=== PATIENT | female | born 1950 | race African-American/Black ===

== ENCOUNTER 2016-10-09 21:05 | Inpatient (IN) | payer MEDICARE, OTHER ==
[~2016-10-09] VITALS: Ht 152.4 cm; Wt 61.7 kg
[~2016-10-09 21:05] MED LIST: AMLO10TA2 PO; DOCU-25 PO; HYDR12.5 PO; MIRT15TA PO; MULT1TAB11 PO; NAPR500T3 PO; RISP0.5T2 PO; SIMV10TA6 PO; TEMA15CA PO; [UNRECOGNIZED DRUG - CODE] TP
--- NOTE | 2016-10-09 21:47 | NUR ---
pt bib family to er bed 11. here for increasing aggression and confusion. hx of dementia. gowned and placed on monitor. stable vitals noted. awaiting md mahmood.
--- NOTE | 2016-10-09 22:04 | NUR ---
JOSELITO ALBERTO AT BEDSIDE FOR EVAL.
--- NOTE | 2016-10-09 22:26 | NUR ---
laborer aquatic life at bedside for blood draw.
[2016-10-09 22:38] LABS: BASOPHILS # (AUTO) 0.1 /CMM (0.0-0.2); BASOPHILS % (AUTO) 1.1 % (0.0-2.0); EOSINOPHILS # (AUTO) 0.1 /CMM (0.0-0.7); EOSINOPHILS % (AUTO) 1.6 % (0.0-6.0); HEMATOCRIT 42 % (33-45); HEMOGLOBIN 13.9 g/dL (11.5-14.8); LYMPHOCYTES # (AUTO) 1.5 /CMM (0.8-4.8); LYMPHOCYTES % (AUTO) 32.2 % (20.0-44.0); MEAN CORPUSCULAR HEMOGLOBIN 29 PG (26.0-33.0); MEAN CORPUSCULAR HGB CONC 33 g/dl (31.0-36.0); MEAN CORPUSCULAR VOLUME 88 fL (82-100); MONOCYTES # (AUTO) 0.5 /CMM (0.1-1.30); MONOCYTES % (AUTO) 10.1 % (2.0-12.0); NEUTROPHILS # (AUTO) 2.6 /CMM (1.8-8.9); PLATELET COUNT (AUTO) 196 /CMM (150-450); RDW COEFFICIENT OF VARIATION 14.4 (11.5-15.0); RED BLOOD CELL COUNT(AUTO) 4.74 MIL/uL (4.0-5.2); WHITE BLOOD COUNT (AUTO) 4.7 K/uL (4.3-11.0)
[2016-10-09 22:56] LABS: ALANINE AMINOTRANSFERASE 44 U/L (12-78); ALKALINE PHOSPHATASE 219 U/L (46-116); ASPARTATE AMINOTRANSFERASE 45 U/L (15-37); BILIRUBIN,DIRECT 0.1 mg/dL (0.0-0.2); BILIRUBIN,TOTAL 0.5 mg/dL (0.2-1.0); CALCIUM, SERUM 9.4 mg/dL (8.5-10.1); CARBON DIOXIDE 28 mmol/L (21-32); CHLORIDE 105 mmol/L (98-107); GFR 67 mL/min (>60); GLUCOSE 90 mg/dL (74-106); POTASSIUM 2.9 mmol/L (3.5-5.1); SODIUM SERUM 141 mmol/L (136-145); TOTAL PROTEIN, SERUM 8.2 g/dL (6.4-8.2); UREA NITROGEN, BLOOD 13 mg/dL (7-18)
[2016-10-09 22:57] LABS: ACETAMINOPHEN 0 ug/ml (10-30); ALCOHOL, BLOOD < 3 mg/dL (0-0); SALICYLATE 0.4 mg/dL (2.8-20.0)
[2016-10-09] MEDS ORDERED: HYDROMORPHONE 1 MG/1 ML DISP.SYRIN IV ONE (23:00)
[2016-10-09] MEDS ORDERED: LIDOCAINE VISCOUS 2% UD 15 ML UDC MM ONE (23:00)
--- NOTE | 2016-10-09 23:24 | NUR ---
REPORT TO CHARGE NURSE RENETTA FOR GEORGE.
[2016-10-09 23:25] LABS: APPEARANCE,URINE SL CLOUDY (CLEAR); BILIRUBIN,URINE NEGATIVE (NEGATIVE); BLOOD, URINE 1+ Ery/uL (NEGATIVE); COLOR,URINE YELLOW (YELLOW); KETONES,URINE NEGATIVE (NEGATIVE); LEUKOCYTE ESTERASE ,URINE NEGATIVE (NEGATIVE); NITRITE, URINE POSITIVE (NEGATIVE); PH,URINE 8.5 (5.0-8.0); PROTEIN,URINE NEGATIVE (NEGATIVE); UGLUCOSE NEGATIVE (NEGATIVE)
[2016-10-09] MEDS ORDERED: POTASSIUM CHLORIDE 20 MEQ TAB.PRT.SR PO ONE (23:30)
[2016-10-09 23:37] LABS: ADD URINE CULTURE YES; BACTERIA,URINE 4+ /HPF (None Seen); SQUAMOUS EPITHELIAL CELL,UR Rare /HPF (None Seen); WBC,URINE 0-2 /HPF (0-3)
[2016-10-09 23:43] LABS: CANNABINOID, URINE NEGATIVE (NEGATIVE); PHENCYCLIDINE SCREEN,URINE NEGATIVE (NEGATIVE)
--- NOTE | 2016-10-10 00:12 | NUR ---
ART HIGHWAY ENGINEER AT BEDSIDE FOR EVAL.
[2016-10-10] MEDS ORDERED: CEPHALEXIN MONOHYDRATE 500 MG CAPSULE PO ONE ×2 (00:54)
[2016-10-10] MEDS ORDERED: predniSONE 20 MG TABLET ONE (00:54)
--- NOTE | 2016-10-10 00:55 | NUR ---
REPORT GIVEN TO UNA KIM FOR CONTINUATION OF CARE.
[2016-10-10] MEDS ORDERED: POTASSIUM CHLORIDE 20 MEQ POWDER PACKET ONE (01:09)
[2016-10-10] MEDS ORDERED: MAGNESIUM HYDROXIDE 30 ML UDC PO PRN (01:30)
[2016-10-10] MEDS ORDERED: MAG HYDROX/AL HYDROX/SIMETH 30 ML UDC PO PRN (01:30)
[2016-10-10] MEDS ORDERED: ACETAMINOPHEN 325 MG TABLET PO PRN (01:30)
[2016-10-10 01:45] VITALS: BP 150/90
--- NOTE | 2016-10-10 01:45 | NUR ---
GPS ADMISSION NOTE, RECEIVED PATIENT FROM [facility] . PATIENT ARRIVED ON THIS UNIT AT 0145 VIA GURNEY WITH EMT [facility]. PATIENT ADMITTED ON A 5150 HOLD FOR GD. PER HOLD PATIENT IS ALERT X1. PT CONFUSED AND PARANOID AT HOME WITH INCREASED AGGRESSION TOWARDS FAMILY FOR ONE MONTH. PATIENT HAS COGNITIVE DECLINE AND IS UNABLE TO PROVIDE SELF CARE AT HOME GIVEN HER CURRENT MENTAL STATE. THE 5150 WAS REVIEWED AND THE DOCUMENTATION IN THE 5150 HOLD APPEARS TO REFLECT THE PRESENTATION OF THE PATIENT. UPON FACE TO FACE ASSESSMENT PATIENT IS CURRENTLY SITTING UP IN WAN CHAIR AWAKE, HAS NO S/S OR COMPLAINTS OF PAIN. PATIENT BREATHING IS UNLABORED WITH EQUAL RISE AND FALL OF THE CHEST. PATIENT IS ALERT AND ORIENTATED X 1 ON ROOM AIR. PATIENT ASSISTED WITH TURING AND REPOSITIONING Q2HR AND PRN FOR COMFORT AND CIRCULATION. PATIENT REQUIRES FREQUENT MONITORING FOR SAFETY. PATIENT IS NOTED TO BEING COMBATIVE, AGGRESSIVE, DISORGANIZED, UNCOOPERATIVE, AND NEEDS REDIRECTION. PATIENT IS UNDER THE PSYCHIATRIC CARE OF DR. SNOW AND THE MEDICAL CARE OF DR YEAGER. PATIENT BELONGINGS WERE INVENTORIED AND CHECKED FOR CONTRABAND. PATIENT ADVANCED DIRECTIVES PREFERENCE, IMMUNIZATIONS QUESTIONER, NECESSARY PAPERWORK, AND SKIN ASSESSMENT COMPLETED. PATIENT ORIENTATED TO ROOM, FLOOR, AND STAFF WITH ALL QUESTIONS ANSWERED. PATIENT EDUCATED ON THE USE OF THE CALL CAMPOS. PATIENT BED SIDE RAILS ARE UP X 2 FOR SAFETY. PATIENT BED IS LOCKED, LOW AND I WILL CONTINUE TO MONITOR THIS PATIENT Q 15 MIN WITH THE HELP OF STAFF TO MAINTAIN SAFETY.
[2016-10-10] MEDS ORDERED: diphenhydrAMINE HCL 25 MG CAPSULE PO PRN (02:00)
[2016-10-10] MEDS ORDERED: OLANZAPINE 10 MG VIAL IM ONE ×2 (02:15→02:30)
[2016-10-10] MEDS ORDERED: diphenhydrAMINE HCL 50 MG/ML VIAL ONE (02:16)
--- NOTE | 2016-10-10 02:23 | NUR ---
GPS RN NOTE, PATIENT IS IN GERATIC CHAIR FOR SAFETY YELLING, THROWING WATER, STRIKING OUT AT STAFF, WHILE POSING BEHAVIOR DANGEROUS TO OTHERS. ATTEMPTED TO REORIENTATE PATIENT, INTERACT WITH PATIENT, AND OFFERED ORAL PO MEDICATION TO HELP CALM HER DOWN. BUT PATIENT REFUSED INTERVENTIONS ATTEMPTED STATING, " I'M WITH GOD AND GOD IS WITH ME DON'T TELL ME WHAT FUCKING DO". PAGED DR SNOW AND INFORMED HIM OF MY FINDINGS. DR SNOW ORDERED TO GIVE BENADRYL 25 MG IM ONCE AND ZYPREXA 5MG IM ONCE. ALL ORDERS NOTED AND CARRIED OUT WILL CONTINUE TO MONITOR THIS PATIENT.
[2016-10-10] MEDS ORDERED: diphenhydrAMINE HCL 50 MG/ML VIAL IM ONE (02:30)
--- NOTE | 2016-10-10 06:02 | NUR ---
GPS RN CALLED DR LILLIAM YEAGER. AWARE OF ADMISSION. HE WILL SEE PT THIS MORNING TO ADDRESS MEDICATION RECONCILIATION, UTI AND K 2.9. WILL ENDORSE TO ONCOMING SHIFT.
[2016-10-10 08:00] VITALS: BP 149/96
[2016-10-10] MEDS ORDERED: PANT40TA4 PO (08:28)
[2016-10-10] MEDS ORDERED: MEMA10TA PO (08:28)
[2016-10-10] MEDS ORDERED: PARO10TA3 PO (08:28)
[2016-10-10] MEDS ORDERED: DONE5TAB34 PO (08:28)
[2016-10-10] MEDS ORDERED: ZOLP5TAB7 PO (08:28)
[2016-10-10] MEDS ORDERED: OXYB5TAB11 PO (08:28)
[2016-10-10] MEDS ORDERED: POTA8TAB8 PO (08:28)
[2016-10-10] MEDS ORDERED: ATOR10TA PO (08:28)
[2016-10-10] MEDS: DIVALPROEX SODIUM 125 MG CAP.SPRINK PO SCH ×2 (09:30→20:25)
[2016-10-10] MEDS: OLANZAPINE 2.5 MG TABLET PO SCH ×2 (09:30→17:42)
[2016-10-10] MEDS ORDERED: POTASSIUM CHLORIDE 20 MEQ TAB.PRT.SR PO ONE (12:30)
[2016-10-10] MEDS: CEPHALEXIN MONOHYDRATE 500 MG CAPSULE PO SCH ×2 (12:30→20:25)
[2016-10-10 16:04] VITALS: BP 131/84
[2016-10-10] MEDS: DOCUSATE SODIUM 100 MG CAPSULE PO SCH (17:42)
[2016-10-10] MEDS: MEMANTINE HCL 5 MG TABLET PO SCH (17:42)
--- NOTE | 2016-10-10 19:51 | NUR ---
RN INITIAL NOTES RECEIVED PT ON WAN CHAIR AWAKE, A/O X 1-2 , CONFUSED , NO AGGRESSIVE BEHAVIOR AT THIS TIME. BREATHING EVEN AND UNLABORED ON ROOM AIR. FALL AND SAFETY MEASURES APPLIED. WILL CONTINUE TO MONITOR BEHAVIOR.
[2016-10-10 20:00] VITALS: BP 140/62
[2016-10-10] MEDS: ATORVASTATIN 10 MG TABLET PO SCH (21:08)
[2016-10-10] MEDS: MIRTAZAPINE 15 MG TABLET PO SCH (21:09)
[2016-10-10] MEDS: TEMAZEPAM 7.5 MG CAPSULE PO PRN (22:31)
--- NOTE | 2016-10-10 23:30 | NUR ---
RN NOTE; PRN RESTORIL 15 MG PO GIVEN FOR INSOMNIA , TOLERATED WELL AT THIS TIME, WILL CONTINUE TO MONITOR THE PATIENT.
[2016-10-11 06:30] LABS: BASOPHILS % (AUTO) 0.7 % (0.0-2.0); EOSINOPHILS # (AUTO) 0.1 /CMM (0.0-0.7); EOSINOPHILS % (AUTO) 1.7 % (0.0-6.0); HEMATOCRIT 38 % (33-45); HEMOGLOBIN 12.5 g/dL (11.5-14.8); LYMPHOCYTES # (AUTO) 1.2 /CMM (0.8-4.8); MEAN CORPUSCULAR HEMOGLOBIN 29 PG (26.0-33.0); MEAN CORPUSCULAR HGB CONC 33 g/dl (31.0-36.0); MEAN CORPUSCULAR VOLUME 88 fL (82-100); MONOCYTES # (AUTO) 0.5 /CMM (0.1-1.30); MONOCYTES % (AUTO) 9.6 % (2.0-12.0); NEUTROPHILS # (AUTO) 3.8 /CMM (1.8-8.9); PLATELET COUNT (AUTO) 183 /CMM (150-450); RDW COEFFICIENT OF VARIATION 14.3 (11.5-15.0); RED BLOOD CELL COUNT(AUTO) 4.28 MIL/uL (4.0-5.2); WHITE BLOOD COUNT (AUTO) 5.7 K/uL (4.3-11.0)
[2016-10-11 06:47] LABS: ALBUMIN 3.4 g/dL (3.4-5.0); BILIRUBIN,TOTAL 0.5 mg/dL (0.2-1.0); CALCIUM, SERUM 9.3 mg/dL (8.5-10.1); CREATININE 0.8 mg/dL (0.6-1.3); POTASSIUM 3.6 mmol/L (3.5-5.1); TOTAL PROTEIN, SERUM 7.4 g/dL (6.4-8.2)
[2016-10-11 06:59] LABS: THYROID STIMULATING HORMONE 0.594 uIU/mL (0.358-3.74)
--- NOTE | 2016-10-11 07:16 | NUR ---
RN EOS NOTE; PT SLEPT WELL DURING THE NIGHT, NO ANY DISTRESS NOTED. ALL PRESCRIBED MEDS TOLERATED WELL, ENDORSED TO DAY SHIFT RN FOR CONTINUITY OF CARE.
[2016-10-11 08:00] VITALS: BP 145/79
[2016-10-11] MEDS: DIVALPROEX SODIUM 125 MG CAP.SPRINK PO SCH ×2 (08:36→20:23)
[2016-10-11] MEDS: PANTOPRAZOLE 40 MG TABLET.DR PO SCH (08:37)
[2016-10-11] MEDS: MEMANTINE HCL 5 MG TABLET PO SCH ×2 (08:37→17:22)
[2016-10-11] MEDS: ASPIRIN 81 MG TAB.CHEW PO SCH (08:37)
[2016-10-11] MEDS: AMLODIPINE BESYLATE 10 MG TABLET PO SCH (08:37)
[2016-10-11] MEDS: CEPHALEXIN MONOHYDRATE 500 MG CAPSULE PO SCH ×2 (08:37→20:23)
[2016-10-11] MEDS: DOCUSATE SODIUM 100 MG CAPSULE PO SCH ×2 (08:37→17:22)
[2016-10-11] MEDS: MULTIVITAMINS,THERAPEUTIC 1 UDTAB TABLET PO SCH (08:37)
[2016-10-11] MEDS: OLANZAPINE 2.5 MG TABLET PO SCH ×2 (08:37→17:22)
[2016-10-11 16:00] VITALS: BP 124/74
--- NOTE | 2016-10-11 16:27 | NUR ---
Initial discharge plan: Pt. lives at home with her daughter Ambar at [address] [place] [address] and wants to return. Pt may need to be placed in a facility as pt's daughter reported that she is unable to care for the patient at home. SW will follow up with daughter as she was unavailable at this time and will arrange for safe and proper discharge.
[2016-10-11 20:00] VITALS: BP 120/77
[2016-10-11] MEDS: ATORVASTATIN 10 MG TABLET PO SCH (21:22)
[2016-10-11] MEDS: MIRTAZAPINE 15 MG TABLET PO SCH (21:22)
[2016-10-11] MEDS: TEMAZEPAM 7.5 MG CAPSULE PO PRN (22:17)
[2016-10-12 07:36] LABS: BASOPHILS % (AUTO) 0.5 % (0.0-2.0); EOSINOPHILS # (AUTO) 0.1 /CMM (0.0-0.7); EOSINOPHILS % (AUTO) 1.4 % (0.0-6.0); HEMATOCRIT 42 % (33-45); LYMPHOCYTES # (AUTO) 1.5 /CMM (0.8-4.8); LYMPHOCYTES % (AUTO) 20.4 % (20.0-44.0); MEAN CORPUSCULAR HEMOGLOBIN 29 PG (26.0-33.0); MEAN CORPUSCULAR HGB CONC 33 g/dl (31.0-36.0); MEAN CORPUSCULAR VOLUME 88 fL (82-100); MONOCYTES # (AUTO) 0.5 /CMM (0.1-1.30); MONOCYTES % (AUTO) 7.3 % (2.0-12.0); NEUTROPHILS # (AUTO) 5.1 /CMM (1.8-8.9); NEUTROPHILS % (AUTO) 70.4 % (43.0-81.0); PLATELET COUNT (AUTO) 198 /CMM (150-450); RDW COEFFICIENT OF VARIATION 14.9 (11.5-15.0); RED BLOOD CELL COUNT(AUTO) 4.77 MIL/uL (4.0-5.2); WHITE BLOOD COUNT (AUTO) 7.2 K/uL (4.3-11.0)
[2016-10-12 07:47] LABS: ALBUMIN 3.8 g/dL (3.4-5.0); BILIRUBIN,TOTAL 0.5 mg/dL (0.2-1.0); CALCIUM, SERUM 9.4 mg/dL (8.5-10.1); CREATININE 0.9 mg/dL (0.6-1.3); POTASSIUM 3.3 mmol/L (3.5-5.1); TOTAL PROTEIN, SERUM 8.4 g/dL (6.4-8.2)
[2016-10-12 08:00] VITALS: BP 154/81
[2016-10-12] MEDS: AMLODIPINE BESYLATE 10 MG TABLET PO SCH (08:34)
[2016-10-12] MEDS: MULTIVITAMINS,THERAPEUTIC 1 UDTAB TABLET PO SCH (08:34)
[2016-10-12] MEDS: ASPIRIN 81 MG TAB.CHEW PO SCH (08:34)
[2016-10-12] MEDS: CEPHALEXIN MONOHYDRATE 500 MG CAPSULE PO SCH ×2 (08:34→20:22)
[2016-10-12] MEDS: DIVALPROEX SODIUM 125 MG CAP.SPRINK PO SCH ×2 (08:34→20:22)
[2016-10-12] MEDS: DOCUSATE SODIUM 100 MG CAPSULE PO SCH ×2 (08:34→17:22)
[2016-10-12] MEDS: MEMANTINE HCL 5 MG TABLET PO SCH ×2 (08:34→17:22)
[2016-10-12] MEDS: PANTOPRAZOLE 40 MG TABLET.DR PO SCH (08:35)
[2016-10-12] MEDS: OLANZAPINE 2.5 MG TABLET PO SCH ×2 (08:35→17:22)
[2016-10-12 16:21] VITALS: BP 129/77
[2016-10-12 20:00] VITALS: BP 113/59
[2016-10-12] MEDS: ATORVASTATIN 10 MG TABLET PO SCH (21:04)
[2016-10-12] MEDS: MIRTAZAPINE 15 MG TABLET PO SCH (21:04)
[2016-10-12] MEDS: TEMAZEPAM 7.5 MG CAPSULE PO PRN (22:10)
[2016-10-13] MEDS: PANTOPRAZOLE 40 MG TABLET.DR PO SCH (07:59)
[2016-10-13 08:00] VITALS: BP 140/79
[2016-10-13] MEDS: DIVALPROEX SODIUM 125 MG CAP.SPRINK PO SCH ×2 (08:41→21:37)
[2016-10-13] MEDS: MEMANTINE HCL 5 MG TABLET PO SCH ×2 (08:41→16:09)
[2016-10-13] MEDS: ASPIRIN 81 MG TAB.CHEW PO SCH (08:41)
[2016-10-13] MEDS: MULTIVITAMINS,THERAPEUTIC 1 UDTAB TABLET PO SCH (08:41)
[2016-10-13] MEDS: CEPHALEXIN MONOHYDRATE 500 MG CAPSULE PO SCH ×2 (08:41→21:37)
[2016-10-13] MEDS: DOCUSATE SODIUM 100 MG CAPSULE PO SCH ×2 (08:41→16:09)
[2016-10-13] MEDS: OLANZAPINE 2.5 MG TABLET PO SCH ×2 (08:42→16:09)
[2016-10-13] MEDS: AMLODIPINE BESYLATE 10 MG TABLET PO SCH (08:42)
[2016-10-13 16:00] VITALS: BP 104/70
[2016-10-13] MEDS ORDERED: DOCUSATE SODIUM 100 MG CAPSULE PO SCH (17:00)
[2016-10-13] MEDS ORDERED: Medication Not On Formulary EA (Memantine Hcl (Namenda) 10 MG) PO SCH (17:00)
[2016-10-13] MEDS: OXYBUTYNIN CHLORIDE 5 MG TABLET PO SCH (17:32)
[2016-10-13 20:12] VITALS: BP 147/65
[2016-10-13] MEDS: ATORVASTATIN 10 MG TABLET PO SCH (21:36)
[2016-10-13] MEDS: MIRTAZAPINE 15 MG TABLET PO SCH (21:37)
[2016-10-13] MEDS: DONEPEZIL 5 MG TABLET PO SCH (21:37)
[2016-10-13] MEDS ORDERED: ATORVASTATIN 10 MG TABLET PO SCH (22:00)
--- NOTE | 2016-10-14 00:33 | NUR ---
Pt has been quite fragmented & unpredictable but she complied with her meds last night with minimal promptings.
[2016-10-14] MEDS ORDERED: PANTOPRAZOLE 40 MG TABLET.DR PO SCH (07:30)
[2016-10-14] MEDS: PANTOPRAZOLE 40 MG TABLET.DR PO SCH (07:30)
[2016-10-14 08:00] VITALS: BP 135/79
[2016-10-14] MEDS ORDERED: AMLODIPINE BESYLATE 10 MG TABLET PO SCH (09:00)
[2016-10-14] MEDS: AMLODIPINE BESYLATE 10 MG TABLET PO SCH (09:02)
[2016-10-14] MEDS: OLANZAPINE 2.5 MG TABLET PO SCH ×2 (09:02→17:09)
[2016-10-14] MEDS: MEMANTINE HCL 5 MG TABLET PO SCH ×2 (09:02→17:09)
[2016-10-14] MEDS: MULTIVITAMINS,THERAPEUTIC 1 UDTAB TABLET PO SCH (09:02)
[2016-10-14] MEDS: DOCUSATE SODIUM 100 MG CAPSULE PO SCH ×2 (09:02→17:09)
[2016-10-14] MEDS: CEPHALEXIN MONOHYDRATE 500 MG CAPSULE PO SCH ×2 (09:02→21:35)
[2016-10-14] MEDS: OXYBUTYNIN CHLORIDE 5 MG TABLET PO SCH ×2 (09:02→17:09)
[2016-10-14] MEDS: DIVALPROEX SODIUM 125 MG CAP.SPRINK PO SCH ×2 (09:02→21:35)
[2016-10-14] MEDS: ASPIRIN 81 MG TAB.CHEW PO SCH (09:02)
[2016-10-14] MEDS: POTASSIUM CHLORIDE 10 MEQ TABLET.SA PO SCH (09:02)
[2016-10-14 16:00] VITALS: BP 144/82
[2016-10-14] MEDS: DONEPEZIL 5 MG TABLET PO SCH (21:35)
[2016-10-14] MEDS: ATORVASTATIN 10 MG TABLET PO SCH (21:36)
[2016-10-14] MEDS: MIRTAZAPINE 15 MG TABLET PO SCH (21:36)
[2016-10-15 08:27] VITALS: BP 142/77
[2016-10-15] MEDS: DOCUSATE SODIUM 100 MG CAPSULE PO SCH ×2 (08:30→16:33)
[2016-10-15] MEDS: ASPIRIN 81 MG TAB.CHEW PO SCH (08:30)
[2016-10-15] MEDS: MULTIVITAMINS,THERAPEUTIC 1 UDTAB TABLET PO SCH (08:30)
[2016-10-15] MEDS: CEPHALEXIN MONOHYDRATE 500 MG CAPSULE PO SCH ×2 (08:30→21:27)
[2016-10-15] MEDS: POTASSIUM CHLORIDE 10 MEQ TABLET.SA PO SCH (08:31)
[2016-10-15] MEDS: DIVALPROEX SODIUM 125 MG CAP.SPRINK PO SCH ×2 (08:31→21:27)
[2016-10-15] MEDS: OXYBUTYNIN CHLORIDE 5 MG TABLET PO SCH ×2 (08:31→16:33)
[2016-10-15] MEDS: AMLODIPINE BESYLATE 10 MG TABLET PO SCH (08:31)
[2016-10-15] MEDS: OLANZAPINE 2.5 MG TABLET PO SCH ×2 (08:31→16:33)
[2016-10-15] MEDS: PANTOPRAZOLE 40 MG TABLET.DR PO SCH (08:31)
[2016-10-15] MEDS: MEMANTINE HCL 5 MG TABLET PO SCH ×2 (08:31→16:33)
--- NOTE | 2016-10-15 13:37 | NUR ---
Pt. was referred to to [facility] [address] [place] [address] will follow up
--- NOTE | 2016-10-15 14:30 | NUR ---
HUEY spoke with Ambar, pt's daughter; [phone] who was unsure whether she wants her mother to return home or go to a facility first before returning back home. She was given time to think about it as pt. does not have a scheduled discharge date yet, but was notified that most likely it will be by the end of this week. HUEY will follow up
[2016-10-15 16:00] VITALS: BP 153/82
[2016-10-15 20:48] VITALS: BP 138/69
[2016-10-15] MEDS: ATORVASTATIN 10 MG TABLET PO SCH (21:27)
[2016-10-15] MEDS: DONEPEZIL 5 MG TABLET PO SCH (21:27)
[2016-10-15] MEDS: MIRTAZAPINE 15 MG TABLET PO SCH (21:27)
[2016-10-16 08:00] VITALS: BP 136/53
[2016-10-16] MEDS: OLANZAPINE 2.5 MG TABLET PO SCH ×2 (08:50→16:13)
[2016-10-16] MEDS: PANTOPRAZOLE 40 MG TABLET.DR PO SCH (08:50)
[2016-10-16] MEDS: MEMANTINE HCL 5 MG TABLET PO SCH ×2 (08:50→16:13)
[2016-10-16] MEDS: OXYBUTYNIN CHLORIDE 5 MG TABLET PO SCH ×2 (08:50→16:13)
[2016-10-16] MEDS: MULTIVITAMINS,THERAPEUTIC 1 UDTAB TABLET PO SCH (08:50)
[2016-10-16] MEDS: DIVALPROEX SODIUM 125 MG CAP.SPRINK PO SCH ×2 (08:50→21:46)
[2016-10-16] MEDS: DOCUSATE SODIUM 100 MG CAPSULE PO SCH ×2 (08:50→16:13)
[2016-10-16] MEDS: ASPIRIN 81 MG TAB.CHEW PO SCH (08:50)
[2016-10-16] MEDS: CEPHALEXIN MONOHYDRATE 500 MG CAPSULE PO SCH (08:50)
[2016-10-16] MEDS: POTASSIUM CHLORIDE 10 MEQ TABLET.SA PO SCH (08:50)
[2016-10-16] MEDS: AMLODIPINE BESYLATE 10 MG TABLET PO SCH (08:51)
[2016-10-16 15:48] VITALS: BP 127/67
--- NOTE | 2016-10-16 19:30 | NUR ---
GPS/RN NOTE: AWAKE, ALERT, ORIENTED X2, NO APPARENT DISTRESS NOTED.
[2016-10-16 19:58] VITALS: BP 121/66
[2016-10-16] MEDS: MIRTAZAPINE 15 MG TABLET PO SCH (21:46)
[2016-10-16] MEDS: DONEPEZIL 5 MG TABLET PO SCH (21:46)
[2016-10-16] MEDS: ATORVASTATIN 10 MG TABLET PO SCH (21:46)
[2016-10-17 08:00] VITALS: BP 137/69
[2016-10-17] MEDS: ASPIRIN 81 MG TAB.CHEW PO SCH (08:11)
[2016-10-17] MEDS: MEMANTINE HCL 5 MG TABLET PO SCH ×2 (08:12→16:01)
[2016-10-17] MEDS: OXYBUTYNIN CHLORIDE 5 MG TABLET PO SCH ×2 (08:12→16:01)
[2016-10-17] MEDS: MULTIVITAMINS,THERAPEUTIC 1 UDTAB TABLET PO SCH (08:12)
[2016-10-17] MEDS: DIVALPROEX SODIUM 125 MG CAP.SPRINK PO SCH ×2 (08:12→20:59)
[2016-10-17] MEDS: PANTOPRAZOLE 40 MG TABLET.DR PO SCH (08:12)
[2016-10-17] MEDS: POTASSIUM CHLORIDE 10 MEQ TABLET.SA PO SCH (08:12)
[2016-10-17] MEDS: DOCUSATE SODIUM 100 MG CAPSULE PO SCH ×2 (08:12→16:01)
[2016-10-17] MEDS: OLANZAPINE 2.5 MG TABLET PO SCH ×2 (08:12→16:01)
[2016-10-17] MEDS: AMLODIPINE BESYLATE 10 MG TABLET PO SCH (08:13)
[2016-10-17 16:00] VITALS: BP 128/85
--- NOTE | 2016-10-17 16:44 | NUR ---
HUEY spoke with Ambar, pt's daughter; [phone] who still has not decided whether she wants pt. home or in a facility. HUEY notified MD and pt. can discharge to [facility] [address] [place] [address] on Friday, October 18 if going to facility, or Friday, October 21, if going home [address] [place] [address] .
[2016-10-17 19:56] VITALS: BP 118/76
[2016-10-17 20:00] VITALS: BP 118/76
[2016-10-17] MEDS: DONEPEZIL 5 MG TABLET PO SCH (20:59)
[2016-10-17] MEDS: MIRTAZAPINE 15 MG TABLET PO SCH (20:59)
[2016-10-17] MEDS: ATORVASTATIN 10 MG TABLET PO SCH (20:59)
[2016-10-18] MEDS: PANTOPRAZOLE 40 MG TABLET.DR PO SCH (07:30)
[2016-10-18 08:00] VITALS: BP 131/61
[2016-10-18] MEDS: MEMANTINE HCL 5 MG TABLET PO SCH ×2 (09:00→17:00)
[2016-10-18] MEDS: POTASSIUM CHLORIDE 10 MEQ TABLET.SA PO SCH (09:00)
[2016-10-18] MEDS: DIVALPROEX SODIUM 125 MG CAP.SPRINK PO SCH ×2 (09:00→23:17)
[2016-10-18] MEDS: DOCUSATE SODIUM 100 MG CAPSULE PO SCH ×2 (09:00→17:00)
[2016-10-18] MEDS: AMLODIPINE BESYLATE 10 MG TABLET PO SCH (09:00)
[2016-10-18] MEDS: OXYBUTYNIN CHLORIDE 5 MG TABLET PO SCH ×2 (09:00→17:00)
[2016-10-18] MEDS: MULTIVITAMINS,THERAPEUTIC 1 UDTAB TABLET PO SCH (09:00)
[2016-10-18] MEDS: OLANZAPINE 2.5 MG TABLET PO SCH ×2 (09:00→17:00)
[2016-10-18] MEDS: ASPIRIN 81 MG TAB.CHEW PO SCH (09:00)
--- NOTE | 2016-10-18 11:26 | NUR ---
GPS/RN PT REFUSED AM MEDS OFFERED X3. MEDS WERE OFFERED BY CHARGE NURSE DEBORAH IKM WELL.
[2016-10-18 16:16] VITALS: BP 151/89
--- NOTE | 2016-10-18 17:44 | NUR ---
GPS/RN PT REFUSED THE MEDS FOR 0, OFFERED BY THE RECYCLING CENTER OPERATOR OF THIS NOTE AND BY DEANNA KIM WELL. MEDS RETURNED TO [facility].
[2016-10-18 20:00] VITALS: BP 122/98
[2016-10-18] MEDS: ATORVASTATIN 10 MG TABLET PO SCH (23:18)
[2016-10-18] MEDS: MIRTAZAPINE 15 MG TABLET PO SCH (23:18)
[2016-10-18] MEDS: DONEPEZIL 5 MG TABLET PO SCH (23:19)
[2016-10-19 07:11] LABS: EOSINOPHILS # (AUTO) 0.1 /CMM (0.0-0.7); EOSINOPHILS % (AUTO) 1.5 % (0.0-6.0); HEMATOCRIT 37 % (33-45); HEMOGLOBIN 12.3 g/dL (11.5-14.8); LYMPHOCYTES # (AUTO) 1.1 /CMM (0.8-4.8); LYMPHOCYTES % (AUTO) 26.1 % (20.0-44.0); MEAN CORPUSCULAR HEMOGLOBIN 30 PG (26.0-33.0); MEAN CORPUSCULAR HGB CONC 33 g/dl (31.0-36.0); MEAN CORPUSCULAR VOLUME 89 fL (82-100); MONOCYTES # (AUTO) 0.4 /CMM (0.1-1.30); MONOCYTES % (AUTO) 10.3 % (2.0-12.0); NEUTROPHILS # (AUTO) 2.6 /CMM (1.8-8.9); NEUTROPHILS % (AUTO) 61.1 % (43.0-81.0); PLATELET COUNT (AUTO) 198 /CMM (150-450); RDW COEFFICIENT OF VARIATION 13.5 (11.5-15.0); RED BLOOD CELL COUNT(AUTO) 4.14 MIL/uL (4.0-5.2); WHITE BLOOD COUNT (AUTO) 4.2 K/uL (4.3-11.0)
[2016-10-19] MEDS: PANTOPRAZOLE 40 MG TABLET.DR PO SCH (07:30)
[2016-10-19 07:49] LABS: ALBUMIN 3.6 g/dL (3.4-5.0); BILIRUBIN,TOTAL 0.3 mg/dL (0.2-1.0); CALCIUM, SERUM 9.6 mg/dL (8.5-10.1); CREATININE 0.8 mg/dL (0.6-1.3); POTASSIUM 3.5 mmol/L (3.5-5.1)
[2016-10-19 08:00] VITALS: BP 110/68
[2016-10-19] MEDS: DOCUSATE SODIUM 100 MG CAPSULE PO SCH ×2 (08:47→16:39)
[2016-10-19] MEDS: DIVALPROEX SODIUM 125 MG CAP.SPRINK PO SCH ×2 (08:47→21:09)
[2016-10-19] MEDS: ASPIRIN 81 MG TAB.CHEW PO SCH (08:47)
[2016-10-19] MEDS: OLANZAPINE 2.5 MG TABLET PO SCH ×3 (08:48→21:09)
[2016-10-19] MEDS: POTASSIUM CHLORIDE 10 MEQ TABLET.SA PO SCH (08:48)
[2016-10-19] MEDS: OXYBUTYNIN CHLORIDE 5 MG TABLET PO SCH ×2 (08:48→16:39)
[2016-10-19] MEDS: MEMANTINE HCL 5 MG TABLET PO SCH ×2 (08:48→16:39)
[2016-10-19] MEDS: AMLODIPINE BESYLATE 10 MG TABLET PO SCH (08:48)
[2016-10-19] MEDS: MULTIVITAMINS,THERAPEUTIC 1 UDTAB TABLET PO SCH (08:48)
[2016-10-19 15:54] VITALS: BP 121/60
[2016-10-19] MEDS ORDERED: OLANZAPINE 2.5 MG TABLET PO SCH (17:00)
[2016-10-19 20:00] VITALS: BP 121/87
[2016-10-19] MEDS: ATORVASTATIN 10 MG TABLET PO SCH (22:28)
[2016-10-19] MEDS: DONEPEZIL 5 MG TABLET PO SCH (22:28)
[2016-10-19] MEDS: MIRTAZAPINE 15 MG TABLET PO SCH (22:28)
[2016-10-19] MEDS: TEMAZEPAM 7.5 MG CAPSULE PO PRN (22:29)
[2016-10-20 08:00] VITALS: BP 146/65
[2016-10-20] MEDS: DIVALPROEX SODIUM 125 MG CAP.SPRINK PO SCH ×2 (08:20→21:43)
[2016-10-20] MEDS: OLANZAPINE 2.5 MG TABLET PO SCH ×2 (08:20→21:43)
[2016-10-20] MEDS: AMLODIPINE BESYLATE 10 MG TABLET PO SCH (08:21)
[2016-10-20] MEDS: POTASSIUM CHLORIDE 10 MEQ TABLET.SA PO SCH (08:21)
[2016-10-20] MEDS: PANTOPRAZOLE 40 MG TABLET.DR PO SCH (08:22)
[2016-10-20] MEDS: OXYBUTYNIN CHLORIDE 5 MG TABLET PO SCH ×2 (08:23→16:38)
[2016-10-20] MEDS: MEMANTINE HCL 5 MG TABLET PO SCH ×2 (08:23→16:38)
[2016-10-20] MEDS: MULTIVITAMINS,THERAPEUTIC 1 UDTAB TABLET PO SCH (08:23)
[2016-10-20] MEDS: ASPIRIN 81 MG TAB.CHEW PO SCH (08:24)
[2016-10-20] MEDS: DOCUSATE SODIUM 100 MG CAPSULE PO SCH ×2 (08:24→16:38)
[2016-10-20 20:18] VITALS: BP 139/98
[2016-10-20] MEDS: ATORVASTATIN 10 MG TABLET PO SCH (21:43)
[2016-10-20] MEDS: DONEPEZIL 5 MG TABLET PO SCH (21:43)
[2016-10-20] MEDS: MIRTAZAPINE 15 MG TABLET PO SCH (21:43)
--- NOTE | 2016-10-21 00:37 | NUR ---
Pt is quite fragmented & unpredictable but she complied with her po noc meds with minimal promptings.
[2016-10-21 08:00] VITALS: BP 142/68
[2016-10-21] MEDS: ASPIRIN 81 MG TAB.CHEW PO SCH (08:31)
[2016-10-21] MEDS: PANTOPRAZOLE 40 MG TABLET.DR PO SCH (08:31)
[2016-10-21] MEDS: OXYBUTYNIN CHLORIDE 5 MG TABLET PO SCH ×2 (08:32→16:12)
[2016-10-21] MEDS: POTASSIUM CHLORIDE 10 MEQ TABLET.SA PO SCH (08:32)
[2016-10-21] MEDS: DOCUSATE SODIUM 100 MG CAPSULE PO SCH ×2 (08:32→16:12)
[2016-10-21] MEDS: MEMANTINE HCL 5 MG TABLET PO SCH ×2 (08:32→16:12)
[2016-10-21] MEDS: DIVALPROEX SODIUM 125 MG CAP.SPRINK PO SCH ×2 (08:32→20:37)
[2016-10-21] MEDS: OLANZAPINE 2.5 MG TABLET PO SCH ×2 (08:33→20:38)
[2016-10-21] MEDS: AMLODIPINE BESYLATE 10 MG TABLET PO SCH (08:33)
[2016-10-21] MEDS: MULTIVITAMINS,THERAPEUTIC 1 UDTAB TABLET PO SCH (08:33)
[2016-10-21 16:42] VITALS: BP 143/75
[2016-10-21 16:44] VITALS: BP 104/65
--- NOTE | 2016-10-21 18:11 | NUR ---
[id number]: NOTIFIED DR. YEAGER OF LAB RESULTS ON 10/19/16: AST= 40, ALKALINE PHOSPHATASE= 168, WBC= 4.2. NO NEW ORDERS GIVEN AT THIS TIME
--- NOTE | 2016-10-21 20:30 | NUR ---
GPS FOUR H CLUB AGENT NOTES: 66YO FEMALE PATIENT DISCHARGED TO HOME IN STABLE CONDITION. COMPLIANT WITH MEDICATIONS, COOPERATIVE WITH TREATMENT. PATIENT DENIES SI/HI. BEHAVIOR IMPROVED, PSYCHIATRIC TREATMENT PLANS MET, MEDICAL TREATMENT PLANS DEFERRED FOR CONTINUAL MONITORING. EDUCATED PATIENT AND DAUGHTER ROMMEL, COPY PROVIDED. RETURNED PERSONAL BELONGINGS TO PATIENT. DAUGHTER SIGNED DISCHARGE PAPER WORKS. SCHEDULED NIGHT TIME MEDICATIONS GIVEN. PATIENT ESCORTED BY SHASHI TINSLEY TO THEIR PRIVATE VEHICLE, LEFT THE UNIT AMBULATORY AT 2043.
[2016-10-21] MEDS: ATORVASTATIN 10 MG TABLET PO SCH (20:38)
[2016-10-21] MEDS: MIRTAZAPINE 15 MG TABLET PO SCH (20:40)
[2016-10-21] MEDS: DONEPEZIL 5 MG TABLET PO SCH (20:41)
--- NOTE | 2016-10-22 15:55 | NUR ---
Discharge note: Pt. was discharged back home yesterday with daughter Ambar [id number] [place] [address] [place] [id number] via private car. Pt. is a smoker so was referred to nicotine anonymous at [address], 8 upstairs [facility] at [place] 7:00 PM. Pt. was referred to [facility] for a follow up with a psychiatrist [id number] [facility] [address] [address] . Discharge paperwork has been singed and discharge instructions were provided to the daughter and pt. Pt. was calm and cooperative and denied suicidal/homicidal ideations.
== END 2016-10-21 21:01 | disposition home or self-care (01) | DRG 885 ==
LOC: ER 21:06 → GPS 10-10 00:41
PROVIDERS: ADMIT Psychiatry & Neurology Psychiatry; ATTEND Internal Medicine
DX: F33.3 Major depressive disorder, recurrent, severe with psychotic symptoms (principal); N39.0 Urinary tract infection, site not specified; F29 Unspecified psychosis not due to a substance or known physiological condition; Z73.6 Limitation of activities due to disability; E87.6 Hypokalemia; I10 Essential (primary) hypertension; K21.9 Gastro-esophageal reflux disease without esophagitis; E78.5 Hyperlipidemia, unspecified; N32.81 Overactive bladder; F17.210 Nicotine dependence, cigarettes, uncomplicated; Z86.011 Personal history of benign neoplasm of the brain; Z79.899 Other long term (current) drug therapy; R74.8 Abnormal levels of other serum enzymes; F03.90 Unspecified dementia, unspecified severity, without behavioral disturbance, psychotic disturbance, mood disturbance, and anxiety; B96.20 Unspecified Escherichia coli [E. coli] as the cause of diseases classified elsewhere
CPT/HCPCS: 36415; 76705-TC; 80048-TC; 80053-TC; 80061-TC; 80076-TC; 80305; 81000-TC; 82962-TC; 82977-TC; 84443-TC; 85025-TC; 86301; 87081-TC; 87086-TC; 87186-TC; A4606; G0480; G6039-TC; J1200; J3490; Z7610

== ENCOUNTER 2016-11-24 14:54 | Inpatient (IN) | payer MEDICARE, OTHER ==
[~2016-11-24] VITALS: Ht 152.4 cm; Wt 63.0 kg
[~2016-11-24 14:54] MED LIST changes: +ATOR10TA PO; +DONE5TAB34 PO; +MEMA10TA PO; -MIRT15TA PO; -MULT1TAB11 PO; -NAPR500T3 PO; +OXYB5TAB11 PO; +PANT40TA4 PO; +PARO10TA3 PO; +POTA8TAB8 PO; -RISP0.5T2 PO; -SIMV10TA6 PO; -TEMA15CA PO; +ZOLP5TAB7 PO; -[UNRECOGNIZED DRUG - CODE] TP
--- NOTE | 2016-11-24 14:59 | NUR ---
BBRA FROM RESTAURANT FROM RESTAURANT FOR ALOC. PT HAS RFA #20 IV ACCESS COMPUTING ARCHITECT. PLACED ON MONITOR. VSS. GOWNED PT. AWAITING MD ORDER
--- NOTE | 2016-11-24 15:18 | NUR ---
TIER LIFT TRUCK OPERATOR AT BEDSIDE
--- NOTE | 2016-11-24 15:20 | NUR ---
EKG IN PROGRESS
--- NOTE | 2016-11-24 15:26 | NUR ---
HYDRAULIC PUNCH PRESS OPERATOR AT BEDSIDE FOR BLOOD DRAW
[2016-11-24 15:40] LABS: BASOPHILS # (AUTO) 0.1 /CMM (0.0-0.2); BASOPHILS % (AUTO) 1.8 % (0.0-2.0); EOSINOPHILS # (AUTO) 0.1 /CMM (0.0-0.7); EOSINOPHILS % (AUTO) 1.3 % (0.0-6.0); HEMATOCRIT 35 % (33-45); HEMOGLOBIN 12.1 g/dL (11.5-14.8); LYMPHOCYTES # (AUTO) 1.6 /CMM (0.8-4.8); MEAN CORPUSCULAR HEMOGLOBIN 30 PG (26.0-33.0); MEAN CORPUSCULAR HGB CONC 34 g/dl (31.0-36.0); MEAN CORPUSCULAR VOLUME 89 fL (82-100); MONOCYTES # (AUTO) 0.9 /CMM (0.1-1.30); MONOCYTES % (AUTO) 10.8 % (2.0-12.0); NEUTROPHILS # (AUTO) 5.3 /CMM (1.8-8.9); NEUTROPHILS % (AUTO) 66.1 % (43.0-81.0); PLATELET COUNT (AUTO) 185 /CMM (150-450); RDW COEFFICIENT OF VARIATION 13.6 (11.5-15.0); RED BLOOD CELL COUNT(AUTO) 3.98 MIL/uL (4.0-5.2)
[2016-11-24 15:49] LABS: CALCIUM, SERUM 9.2 mg/dL (8.5-10.1); CARBON DIOXIDE 28 mmol/L (21-32); CHLORIDE 104 mmol/L (98-107); CREATININE 0.9 mg/dL (0.6-1.3); GLUCOSE 99 mg/dL (74-106); POTASSIUM 3.3 mmol/L (3.5-5.1); SODIUM SERUM 139 mmol/L (136-145); UREA NITROGEN, BLOOD 18 mg/dL (7-18)
[2016-11-24 15:52] LABS: INR 1.12 (0.87-1.13); PROTHROMBIN TIME 11.8 SECS (9.5-12.7)
[2016-11-24 15:55] LABS: ALANINE AMINOTRANSFERASE 27 U/L (12-78); ALBUMIN 3.4 g/dL (3.4-5.0); ALKALINE PHOSPHATASE 174 U/L (46-116); ASPARTATE AMINOTRANSFERASE 40 U/L (15-37); BILIRUBIN,DIRECT 0.1 mg/dL (0.0-0.2); BILIRUBIN,TOTAL 0.6 mg/dL (0.2-1.0); TOTAL PROTEIN, SERUM 7.3 g/dL (6.4-8.2)
[2016-11-24 15:57] LABS: TROPONIN I < 0.017 ng/mL (0.00-0.056)
[2016-11-24] MEDS ORDERED: OLANZAPINE 5 MG/TAB.RAPDIS PO ONE (16:00)
--- NOTE | 2016-11-24 16:20 | NUR ---
URINE SAMPLE COLLECTED SENT TO LAB
[2016-11-24 16:24] LABS: APPEARANCE,URINE Turbid (CLEAR); BILIRUBIN,URINE Negative (NEGATIVE); BLOOD, URINE Moderate Ery/uL (NEGATIVE); COLOR,URINE Yellow (YELLOW); KETONES,URINE Trace (NEGATIVE); LEUKOCYTE ESTERASE ,URINE Moderate (NEGATIVE); NITRITE, URINE Negative (NEGATIVE); PROTEIN,URINE 30 mg/dl (NEGATIVE); UGLUCOSE Negative (NEGATIVE)
[2016-11-24 16:30] LABS: BACTERIA,URINE Many /HPF (None Seen); RBC,URINE 0-3 /HPF (0-2); SQUAMOUS EPITHELIAL CELL,UR Few /HPF (None Seen); WBC,URINE 80-100 /HPF (0-3)
[2016-11-24 16:30] LABS: ALCOHOL, BLOOD < 3 mg/dL (0-0)
[2016-11-24 16:31] LABS: ACETAMINOPHEN 0 ug/ml (10-30); SALICYLATE 0.5 mg/dL (2.8-20.0)
--- NOTE | 2016-11-24 16:41 | NUR ---
PT TAKEN TO CT VIA CANDI
[2016-11-24] MEDS ORDERED: CEFTRIAXONE 1GM BAG (ER ONLY) 50 ML IV ONE ×2 (17:00→17:11)
--- NOTE | 2016-11-24 17:07 | NUR ---
GAVE REPORT TO [facility] ROOM [address] BHAVANI YEAGER ADMITTING MD . ALTERED MENTAL STATUS . TRASNFER VIA ACLS PROTOCOL
[2016-11-24] MEDS ORDERED: IV SET PRIMARY PUMP SET 1 EA INFUS.SET MC ONE (17:11)
--- NOTE | 2016-11-24 18:45 | NUR ---
BARBER TOOL SHARPENER NOTE Received patient from ER via [facility]Profista @ 3266 as accompanied by ER staff. Pt A/O X1 verbally responsive but unable to provide any answers or history due to AMS and HX of Dementia. Denies any pain at this time. On tele monitor SR 80's. Body assessment done, pictures taken and placed in chart. IV site on RAC #20 intact and patent. Called Dr. Díaz made aware that pt admitted to tele floor with new diet order obtained. Per Dr. Díaz, he will place new orders. Will endorse care to next shift. Bed in low locked position. Call light with in reach. V/S BP132/70 T97.8 P79 R20 O2 sat 95% at RA.
[2016-11-24 20:00] VITALS: BP 148/73
[2016-11-24] MEDS ORDERED: ONDANSETRON HCL/PF 4 MG/2 ML VIAL IV PRN (20:00)
[2016-11-24] MEDS ORDERED: ACETAMINOPHEN 325 MG TABLET PO PRN (20:00)
[2016-11-24] MEDS ORDERED: ZOLPIDEM TARTRATE 5 MG TABLET PO PRN (20:00)
[2016-11-24] MEDS ORDERED: CEFTRIAXONE 1 G in IV D5W 50 ML IV SCH (20:00)
[2016-11-24] MEDS ORDERED: LORAZEPAM 1 MG TABLET PO PRN (20:00)
--- NOTE | 2016-11-24 20:38 | NUR ---
JET HANDLER OPENING NOTES: RECEIVED PATIENT IN BED, WITH FAMILY AT BEDSIDE VISITING PATIENT. WITH HEPLOCK ON RIGHT AC G#20., NO SIGNS OF REDNESS, INFLAMMATION OR INFECTION ON SITE. FLUSHING DONE. PATIENT IS ALERT AND ORIENTED X1. OBSERVED TO BE DISORIENTED, CONFUSED, NO COMPLAINS THIS TIME. NO FACIAL GRIMACE NOTED. WILL CARRY OUT NEW ORDERS BY DR. YEAGER. WILL CONTINUE TO MONITOR PATIENT.
--- NOTE | 2016-11-24 21:25 | NUR ---
EDGE SETTER: ROCEPHIN 1GN NOT GIVEN, PATIENT INITIALLY HAD A DOSE OF ROCEPHIN AT THE EMERGENCY ROOM. WILL CONTINUE TO MONITOR PATIENT.
[2016-11-24] MEDS ORDERED: DONEPEZIL 5 MG TABLET ONE (22:30)
[2016-11-24] MEDS ORDERED: ATORVASTATIN 10 MG TABLET ONE (22:31)
[2016-11-24] MEDS: DONEPEZIL 5 MG TABLET PO SCH (22:45)
[2016-11-24] MEDS: ATORVASTATIN 10 MG TABLET PO SCH (22:45)
[2016-11-25] VITALS: BP 139/71
[2016-11-25 04:00] VITALS: BP 148/89
--- NOTE | 2016-11-25 06:30 | NUR ---
HEALTH INFORMATION PROVIDER CLOSING NOTES: PATIENT IN BED, ASLEEP, IN NO APPARENT DISTRESS THIS TIME OF ASSESSMENT. PATIENT STILL NOTED TO BE CONFUSED AND DISORIENTED WHEN AWAKE. ASSISTED PATIENT WITH HER NEEDS. OFFERED ORAL FLUIDS TOLERATED. PATIENT HAS NO COMPLAINS OF PAIN THIS TIME. NO FACIAL GRIMACE NOTED. FALL PRECAUTION OBSERVED. TELEMETRY SHOWS SINUS RHYTHM AT 60-73BEATS/ MIN. WILL CONTINUE TO MONITOR PATIENT. WILL ENDORSE PATIENT TO DAY SHIFT NURSE.
--- NOTE | 2016-11-25 06:52 | NUR ---
UPKEEP WORKER: PATIENT IN BED, NO COMPLAINS THIS TIME. APPEARS TO BE CONFUSED AND DISORIENTED. PATIENT ACCIDENTALLY TOOK HER HEPLOCK OUT.
--- NOTE | 2016-11-25 07:15 | NUR ---
SEAM RUBBING MACHINE OPERATOR OPENING NOTES RECEIVED PT. FROM NIGHTSHIFT NURSE IN STABLE CONDITION. PT IS A/O X1. PT. RESPONDS TO NAME AND TOUCH BUT IS CONFUSED. PT. UNABLE TO SAY WHERE SHE IS, THE DATE, TIME, AND EVENTS LEADING TO HOSPITALIZATION. SINUS RHYTHM ON TELE MONITOR WITH A HR OF 63. NO SOB OR SIGNS OF DISTRESS NOTED. BREATHING IS EVEN AND UNLABORED. PT. PULLED OUT IV ACCORDING TO THE NIGHTSHIFT NURSE. WILL ATTEMPT TO REINSERT. NO SIGNS OR VERBALIZATION OF PAIN NOTED. BED IN LOW LOCKED POSITION, SIDE RAILS UP X3, CALL LIGHT WITHIN REACH. BED ALARM ON. WILL CONTINUE TO MONITOR. .
[2016-11-25] MEDS ORDERED: PANTOPRAZOLE 40 MG TABLET.DR PO SCH (07:30)
[2016-11-25 08:00] VITALS: BP_SYST 159; BP_DIAS 56; BP_DIAS 86
[2016-11-25] MEDS: AMLODIPINE BESYLATE 10 MG TABLET PO SCH (08:36)
[2016-11-25] MEDS: OXYBUTYNIN CHLORIDE 5 MG TABLET PO SCH ×2 (08:36→17:42)
[2016-11-25] MEDS: DOCUSATE SODIUM 100 MG CAPSULE PO SCH ×2 (08:36→17:41)
[2016-11-25] MEDS: PANTOPRAZOLE 40 MG TABLET.DR PO SCH (08:37)
[2016-11-25] MEDS ORDERED: PAROXETINE HCL 10 MG TABLET PO SCH (09:00)
[2016-11-25] MEDS ORDERED: Z GUARD REMEDY 2 OZ OINT TP PRN (09:30)
--- NOTE | 2016-11-25 09:30 | NUR ---
WOUND CARE CONSULT: PT PRESENTS WITH LEFT DORSAL GREAT TOE BLISTER WHICH IS INTACT, PRESENT ON ADMISSION. THERE ARE DRY ESCHARS NOTED TO TOES ALSO. RECOMMEND DPM CONSULT. PT IS AMBULATORY. PT IS INCONTINENT AT TIMES. ANGELY SCORE CURRENTLY 18. WILL SEE PRN. RECOMMENDATIONS MADE FOR SKIN PROTECTION. DISCUSSED WITH NURSING STAFF. Addendum: 11/25/16 at 2692 by BILL VILLELA WNDNU Amended: Links added.
[2016-11-25 16:00] VITALS: BP 146/71
[2016-11-25] MEDS ORDERED: IV NS 0.9% 250 ML IV ONE (17:03)
[2016-11-25] MEDS ORDERED: IV SET PRIMARY PUMP SET 1 EA INFUS.SET MC ONE (17:03)
[2016-11-25] MEDS ORDERED: SECONDARY IV SET 1 EA INFUS.SET MC ONE (17:03)
[2016-11-25] MEDS ORDERED: hydrALAZINE HCL 25 MG TABLET PO PRN (17:30)
[2016-11-25] MEDS: OLANZAPINE 2.5 MG TABLET PO SCH (17:41)
[2016-11-25] MEDS: CEFTRIAXONE 1 G in IV D5W 50 ML IV SCH (17:42)
--- NOTE | 2016-11-25 18:50 | NUR ---
MS RN CLOSING NOTES PT. IS IN STABLE CONDITION. NO ACUTE CHANGES IN CONDITION DURING SHIFT. PT. STILL REMAIN A/O X1 AND CONFUSED. ALL NEEDS WERE MET AND ANTICIPATED FOR. ALL ORDERS WERE CARRIED OUT ACCORDINGLY. ALL SAFETY MEASURES IN PLACE. SITTER REMAINS AT BEDSIDE. WILL ENDORSE TO NIGHTSHIFT NURSE FOR GEORGE
--- NOTE | 2016-11-25 19:40 | NUR ---
MS RN NOTE: PATIENT RESTING IN BED, NO ACUTE DISTRESS NOTED. BREATHING EVEN AND UNLABORED, NO SOB NOTED. IV TO LEFT FOREARM IN PLACE. SITTER AT BEDSIDE. BED LOCKED AND IN LOWEST POSITION, CALL LIGHT IN REACH. WILL CONTINUE TO MONITOR.
[2016-11-25 20:00] VITALS: BP 139/82
[2016-11-25] MEDS: MIRTAZAPINE 15 MG TABLET PO SCH (21:11)
[2016-11-25] MEDS: DONEPEZIL 5 MG TABLET PO SCH (21:12)
[2016-11-25] MEDS: DIVALPROEX SODIUM 125 MG TABLET.DR PO SCH (21:12)
[2016-11-25] MEDS: ATORVASTATIN 10 MG TABLET PO SCH (21:12)
--- NOTE | 2016-11-25 21:45 | NUR ---
MS RN NOTE: RECEIVED CALL FROM PATIENT DAUGHTER, ROMMEL, SHE IS THE DPOA AND THAT SHE IS THE MAIN PRESIDENT [employer] AT [phone]. THERE IS A CONTACT INFO FOR PATIENT BROTHER ROMMEL SILVEIRA SAID THAT SHE IS THE PERSON TO CALL IF THEY NEED ANYTHING FOR PATIENT. WILL CONTINUE TO MONITOR.
--- NOTE | 2016-11-26 06:15 | NUR ---
MS RN NOTE: PATIENT RESTING IN BED, NO ACUTE DISTRESS NOTED. BREATHING EVEN AND UNLABORED, NO SOB NOTED. IV TO LEFT FOREARM IN PLACE. SITTER AT BEDSIDE. BED LOCKED AND IN LOWEST POSITION, CALL LIGHT IN REACH. WILL ENDORSE TO DAY NURSE TO CONTINUE WITH PLAN OF CARE.
[2016-11-26 08:00] VITALS: BP 149/76
--- NOTE | 2016-11-26 08:00 | NUR ---
m/s superintendent service: initial assessment received pt in bed awake, alert to name only with confusion and disorientation to time, place, and situation. reality orientation provided prn. continue on 1:1 sitter for safety. no apparent distress noted. will monitor.
[2016-11-26] MEDS: PANTOPRAZOLE 40 MG TABLET.DR PO SCH (09:14)
[2016-11-26] MEDS: OLANZAPINE 2.5 MG TABLET PO SCH (09:14)
[2016-11-26] MEDS: OXYBUTYNIN CHLORIDE 5 MG TABLET PO SCH ×2 (09:14→17:01)
[2016-11-26] MEDS: DIVALPROEX SODIUM 125 MG TABLET.DR PO SCH ×2 (09:15→21:37)
[2016-11-26] MEDS: DOCUSATE SODIUM 100 MG CAPSULE PO SCH ×2 (09:15→17:01)
[2016-11-26] MEDS: MEMANTINE HCL 5 MG TABLET PO SCH ×2 (09:15→17:01)
[2016-11-26] MEDS: AMLODIPINE BESYLATE 10 MG TABLET PO SCH (09:16)
[2016-11-26] MEDS: ASPIRIN 81 MG TAB.CHEW PO SCH (09:16)
--- NOTE | 2016-11-26 10:00 | NUR ---
m/s groundskeeper: notes pt remains confused with periods of pacing in room and hallway. monitored closely by sitter. reality orientation provided prn. will continue to monitor.
--- NOTE | 2016-11-26 12:00 | NUR ---
m/s spanisher: notes lunch served. up in chair. sitter remains at bedside. will continue to monitor.
--- NOTE | 2016-11-26 13:30 | NUR ---
m/s coupling machine operator: psych consult seen by dr. salgado at this time.
--- NOTE | 2016-11-26 14:00 | NUR ---
m/s microscopist: notes up and about in room. remains confused and disoriented. reality orientation provided prn. instructed to call for assistance. will monitor.
[2016-11-26] MEDS: CEFTRIAXONE 1 G in IV D5W 50 ML IV SCH (16:59)
[2016-11-26 17:00] VITALS: BP 122/56
[2016-11-26] MEDS ORDERED: OLANZAPINE 2.5 MG TABLET PO SCH (17:00)
--- NOTE | 2016-11-26 18:20 | NUR ---
m/s cupola liner helper: notes pt lying in bed, remains confused and disoriented. reality orientation provided prn. needs attended. sitter remains at bedside. will continue to monitor.
--- NOTE | 2016-11-26 19:20 | NUR ---
RN OPEN NOTES RECEIVED PATIENT AWAKE IN BED, WITH SITTER AT BEDSIDE. A/O X1. NO SIGNS OF DISTRESS OR DISCOMFORT. BREATHING EVEN AND UNLABORED. IV ACCESS IN LFA, PATENT AND INTACT, NO SIGNS OF REDNESS OR INFILTRATION. BED IN LOW LOCKED POSITION WITH SIDE RAILS X2. CALL LIGHT WITHIN REACH. WILL CONTINUE TO MONITOR.
[2016-11-26 20:00] VITALS: BP 140/72
[2016-11-26] MEDS: DONEPEZIL 5 MG TABLET PO SCH (21:37)
[2016-11-26] MEDS: ATORVASTATIN 10 MG TABLET PO SCH (21:37)
[2016-11-26] MEDS: MIRTAZAPINE 15 MG TABLET PO SCH (21:37)
--- NOTE | 2016-11-27 07:45 | NUR ---
RN MS NOTES RECEIVED PATIENT, WALLING IN ROOM, SITTER AT BED SIDE. A/OX1, VERBALLY RESPONSIVE, NO APPARENT DISTRESS NOTED DENIES SOB DENIES PAIN. IV LINE ON LFA PATENT, ALL NEEDS MET, KEPT CLEAN AND DRY.
--- NOTE | 2016-11-27 08:11 | NUR ---
RN CLOSING NOTES PATIENT RESTING IN BED, WITH SITTER AT BEDSIDE. A/O X1. NO SIGNS OF DISTRESS OR DISCOMFORT. BREATHING EVEN AND UNLABORED. IV ACCESS IN LFA, PATENT AND INTACT, NO SIGNS OF REDNESS OR INFILTRATION. ALL NEEDS MET. NO SIGNIFICANT CHANGES THROUGH THE NIGHT. BED IN LOW LOCKED POSITION WITH SIDE RAILS X2. CALL LIGHT WITHIN REACH. WILL ENDORSE TO AM SHIFT FOR GEORGE.
[2016-11-27] MEDS: ASPIRIN 81 MG TAB.CHEW PO SCH (09:19)
[2016-11-27] MEDS: DOCUSATE SODIUM 100 MG CAPSULE PO SCH ×2 (09:19→17:07)
[2016-11-27] MEDS: OXYBUTYNIN CHLORIDE 5 MG TABLET PO SCH ×2 (09:19→17:08)
[2016-11-27] MEDS: PANTOPRAZOLE 40 MG TABLET.DR PO SCH (09:19)
[2016-11-27] MEDS: OLANZAPINE 2.5 MG TABLET PO SCH ×2 (09:20→17:08)
[2016-11-27] MEDS: DIVALPROEX SODIUM 125 MG TABLET.DR PO SCH ×2 (09:20→21:09)
[2016-11-27] MEDS: MEMANTINE HCL 5 MG TABLET PO SCH ×2 (09:20→17:07)
[2016-11-27] MEDS: AMLODIPINE BESYLATE 10 MG TABLET PO SCH (09:21)
[2016-11-27] MEDS: CEFTRIAXONE 1 G in IV D5W 50 ML IV SCH (17:00)
--- NOTE | 2016-11-27 19:00 | NUR ---
RN NOTES Received patient in bed, sitting position, no SOB observed, no apparent distress noted. Able to respond when asked, noted with confusion, reality orientation provided. patient can follow directions. Routine assessment done, will continue to monitor.
--- NOTE | 2016-11-27 19:01 | NUR ---
JUDY AMADOR NOTES PATIENT IN BED, A/O X1, IN NO APPARENT DISTRESS. ALL DUE MEDS GIVEN, ALL NEEDS MET, KEPT CLEAN AND DRY. IV LINE WAS PULLED OUT. THREE NURSES UNABLE TO START IV LINE. WILL ENDORSE CARE TO PM SHIFT. Addendum: 11/27/16 at 1930 by ERIN WISEMAN RN IV ROCEPHIN NOT ADMINISTERED DUE TO PATIENT NOT HAVING IV ACCESS.
--- NOTE | 2016-11-27 19:30 | NUR ---
RN NOTES RECEIVED PT. AWAKE ON BED, A/OX2, NO IV LINE, SITTER AT BEDSIDE, DENIES PAIN, NO SOB, CALL LIGHT WITHIN REACH, SIDERAILS UPX2 CONTINUE TO MONITOR
[2016-11-27 20:00] VITALS: BP 155/79
--- NOTE | 2016-11-27 21:00 | NUR ---
RN NOTES PT REFUSED TO HAVE AN IV LINE
[2016-11-27] MEDS: DONEPEZIL 5 MG TABLET PO SCH (21:11)
[2016-11-27] MEDS: ATORVASTATIN 10 MG TABLET PO SCH (21:11)
[2016-11-27] MEDS: MIRTAZAPINE 15 MG TABLET PO SCH (21:11)
--- NOTE | 2016-11-28 06:16 | NUR ---
RN CLOSING NOTES Patient sleeping, easliy arousable with verbal and tactile stimuli. Provided a quiet and safe environment. No behavioral problem noted. Will continue to monitor.
--- NOTE | 2016-11-28 07:55 | NUR ---
RECEIVED PATIENT IN BED, NO APPARENT DISTRESS NOTED, DENIES PAIN, DENIES SOB. PATIENT HAS NO IV ACCESS, REFUSED INSERTION LAST NIGHT. ALL NEEDS MET, KEPT CLEAN AND DRY, CALL LIGHT WITHIN REACH.
[2016-11-28] MEDS: DIVALPROEX SODIUM 125 MG TABLET.DR PO SCH ×2 (09:04→21:14)
[2016-11-28] MEDS: MEMANTINE HCL 5 MG TABLET PO SCH ×2 (09:04→16:38)
[2016-11-28] MEDS: DOCUSATE SODIUM 100 MG CAPSULE PO SCH ×2 (09:05→16:38)
[2016-11-28] MEDS: OXYBUTYNIN CHLORIDE 5 MG TABLET PO SCH ×2 (09:05→16:37)
[2016-11-28] MEDS: ASPIRIN 81 MG TAB.CHEW PO SCH (09:05)
[2016-11-28] MEDS: PANTOPRAZOLE 40 MG TABLET.DR PO SCH (09:05)
[2016-11-28] MEDS: AMLODIPINE BESYLATE 10 MG TABLET PO SCH (09:05)
[2016-11-28] MEDS: OLANZAPINE 2.5 MG TABLET PO SCH ×2 (09:07→16:38)
[2016-11-28] MEDS: LEVOFLOXACIN (500MG) 500 MG TABLET PO SCH (12:05)
--- NOTE | 2016-11-28 16:00 | NUR ---
RN MS NOTES CALLED DAUGHTER ROMMEL TO DISCUSS DISCHARGE PLANING, NO ANSWER. LEFT A MESSAGE, AWAITING CALL BACK.
--- NOTE | 2016-11-28 16:38 | NUR ---
RN MS NOTES PATIENT REFUSED MEDS, OFFERED SEVERAL TIMES STILL REFUSED. CHARGE NURSE OFFERED MEDS, STILL REFUSED.
--- NOTE | 2016-11-28 19:33 | NUR ---
RN MS CLOSING NOTES PATIENT IN BED WITH SITTER AT BED SIDE, A/X1, NO APPARENT DISTRESS NOTED. PATIENT REFUSED HER 1700 MEDS. NO IV ACCESS, MD AWARE ATB CHANGED TO ORAL. CALLED HER DAUGHTER ROMMEL TO DISCUSS DISCHARGE PLANING. SHE DID NOT BLACKJACK SUPERVISOR, LEFT A MESSAGE NO CALL BACK. WILL ENDORSE CARE TO PM SHIFT.
[2016-11-28 20:28] VITALS: BP 123/96
[2016-11-28 21:02] VITALS: BP 123/96
[2016-11-28] MEDS: DONEPEZIL 5 MG TABLET PO SCH (21:14)
[2016-11-28] MEDS: MIRTAZAPINE 15 MG TABLET PO SCH (21:14)
[2016-11-28] MEDS: ATORVASTATIN 10 MG TABLET PO SCH (21:14)
--- NOTE | 2016-11-29 06:00 | NUR ---
RN MS CLOSING NOTES PATIENT IN BED, SLEEPING WITH SITTER AT BED SIDE, A&OX1, CONFUSED, RESPIRATION EVEN AND UNLABORED, NO APPARENT DISTRESS NOTED. PATIENT REFUSED HER 0600 LABS. NO IV ACCESSE. MD AWARE. BED IN LOW AND LOCKED POSITION. SIDERAILS UPX2. CALL LIGHT WITHIN REACH. WILL ENDORSE TO NEXT SHIFT NURSE FOR CONTINUITY OF CARE.
--- NOTE | 2016-11-29 07:30 | NUR ---
MS RN NOTES RECEIVED REPORT WITH PATIENT SITTING ON CHAIR AT BEDSIDE. PATIENT IS A/OX2. NO S/S OF DISTRESS NOTED. NO S/S OF SOB NOTED. SITTER AT THE BEDSIDE. BED IS IN LOWEST, LOCKED POSITION. CALL LIGHT IS WITHIN REACH. WILL CONTINUE TO MONITOR THROUGHOUT SHIFT.
[2016-11-29 08:00] VITALS: BP 136/71
[2016-11-29] MEDS: OLANZAPINE 2.5 MG TABLET PO SCH ×2 (08:36→17:54)
[2016-11-29] MEDS: AMLODIPINE BESYLATE 10 MG TABLET PO SCH (08:36)
[2016-11-29] MEDS: DIVALPROEX SODIUM 125 MG TABLET.DR PO SCH ×2 (08:37→22:20)
[2016-11-29] MEDS: PANTOPRAZOLE 40 MG TABLET.DR PO SCH (08:37)
[2016-11-29] MEDS: ASPIRIN 81 MG TAB.CHEW PO SCH (08:37)
[2016-11-29] MEDS: DOCUSATE SODIUM 100 MG CAPSULE PO SCH ×2 (08:37→17:54)
[2016-11-29] MEDS: MEMANTINE HCL 5 MG TABLET PO SCH ×2 (08:37→17:54)
[2016-11-29] MEDS: OXYBUTYNIN CHLORIDE 5 MG TABLET PO SCH ×2 (08:37→17:54)
[2016-11-29] MEDS: LEVOFLOXACIN (500MG) 500 MG TABLET PO SCH (12:35)
[2016-11-29 16:00] VITALS: BP 131/79
--- NOTE | 2016-11-29 19:29 | NUR ---
MS RN NOTES CALLED AND GAVE REPORT TO LADAN IN GPS
--- NOTE | 2016-11-29 19:41 | NUR ---
MS RN NOTES PATIENT ESCORTED DOWNSTAIRS TO GPS. PATIENT IN STABLE CONDITION. NO DISTRESS NOTED. NO SOB NOTED. NO IV. DISCHARGE PROTOCOL FOLLOWED. DISCHARGE INSTRUCTIONS PROVIDED TO PATIENT. EDUCATED PATIENT. AWARE OF ALL ABNORMAL LABS.
[2016-11-29 21:50] VITALS: BP 143/76
[2016-11-29] MEDS ORDERED: DIVALPROEX SODIUM 125 MG TABLET.DR PO ONE (21:56)
[2016-11-29] MEDS ORDERED: DONEPEZIL 5 MG TABLET ONE (21:57)
[2016-11-29] MEDS ORDERED: MIRTAZAPINE 15 MG TABLET ONE (21:57)
[2016-11-29] MEDS ORDERED: ATORVASTATIN 10 MG TABLET ONE (21:57)
[2016-11-29] MEDS: MIRTAZAPINE 15 MG TABLET PO SCH (22:20)
[2016-11-29] MEDS: DONEPEZIL 5 MG TABLET PO SCH (22:21)
[2016-11-29] MEDS: ATORVASTATIN 10 MG TABLET PO SCH (22:21)
--- NOTE | 2016-11-29 23:44 | NUR ---
MS RN INITIAL NOTE PT RECEIVED FROM GPS CAME BACK AGAIN FROM MS DEPARTMENT. PATIENT NO S/S OF RESPIRATORY DISTRESS OR SOB. PATIENT IS WITH SITTER. RESUME PREVIOS ORDERS FROM MS. SAFE ENVIRONMENT PROVIDED FREE OF CLUTTERS .BED IN LOCKED, LOW POSITION. CALL LIGHT WITHIN EASY REACH. WILL CONTINUE TO MONITOR. Addendum: 11/29/16 at 2346 by RENÉE BASHIR RN PATIENT CAME TODAY AT 2100
--- NOTE | 2016-11-30 06:36 | NUR ---
MS RN CLOSING NOTES PATIENT COMFORTABLY ASLEEP AND EASILY AWAKEN, HEAD OF BED FOR BETTER LUNG EXPANSION. ALERT AND VERBALLY RESPONSIVE X 1. NOT IN ACUTE DISTRESS. RESPIRATIONS EVEN AND UNLABORED, NO SOB, NO COUGH, NO CONGESTION, SKIN WARM AND DRY TO TOUCH, AFEBRILE, ALL NURSING CARE NEEDS PROVIDED AND RENDERED, KEPT CLEAN AND DRY AND COMFORTABLE, GOOD SKIN CARE PROVIDED. FREQUENT VISUAL CHECK DONE FOR SAFETY EVERY 2 HOURS. SAFE HAZARD FREE ENVIRONMENT PROVIDED. CALL LIGHT WITHIN EASY TO REACH, ON LOW BED AT ALL TIMES TO ENSURE SAFETY, WILL ENDORSE TO THE NEXT SHIFT CONTINUE PLAN OF CARE. TOLERATING ROOM AIR 97% R.A, 1:1 SITTER
--- NOTE | 2016-11-30 07:30 | NUR ---
MS RN NOTES RECEIVED PATIENT AWAKE ON BED. PATIENT IS A/OX2. NO S/S OF DISTRESS NOTED. NO S/S OF SOB NOTED. SITTER AT THE BEDSIDE. CALL LIGHT WITHIN REACH, BED IS IN LOWEST, LOCKED POSITION. WILL CONTINUE TO MONITOR THROUGHOUT SHIFT.
[2016-11-30 08:00] VITALS: BP 115/59
[2016-11-30] MEDS ORDERED: DOCUSATE SODIUM 100 MG CAPSULE PO SCH (09:00)
[2016-11-30] MEDS ORDERED: DONEPEZIL 5 MG TABLET PO SCH ×2 (10:22→22:00)
[2016-11-30] MEDS ORDERED: ASPIRIN 81 MG TAB.CHEW PO SCH (10:27)
[2016-11-30] MEDS ORDERED: ZOLPIDEM TARTRATE 5 MG TABLET PO PRN (10:30)
[2016-11-30 10:46] VITALS: BP 115/64
[2016-11-30] MEDS: DIVALPROEX SODIUM 125 MG TABLET.DR PO SCH (10:46)
[2016-11-30] MEDS: OXYBUTYNIN CHLORIDE 5 MG TABLET PO SCH (10:46)
[2016-11-30] MEDS: AMLODIPINE BESYLATE 10 MG TABLET PO SCH (10:46)
[2016-11-30] MEDS: OLANZAPINE 2.5 MG TABLET PO SCH (10:46)
[2016-11-30] MEDS: MEMANTINE HCL 5 MG TABLET PO SCH (10:46)
[2016-11-30] MEDS: PANTOPRAZOLE 40 MG TABLET.DR PO SCH (10:47)
[2016-11-30] MEDS: LEVOFLOXACIN (500MG) 500 MG TABLET PO SCH (12:32)
--- NOTE | 2016-11-30 13:20 | NUR ---
MS RN NOTES DISCHARGE PT TO GPS UNIT IN STABLE CONDITION. REPORT GIVEN TO JUDY HUERTA.
[2016-11-30] MEDS ORDERED: OLAN5TAB3 PO (14:01)
[2016-11-30] MEDS ORDERED: DIVA125C PO (14:01)
[2016-11-30] MEDS ORDERED: ACET-868 PO (14:01)
[2016-11-30] MEDS ORDERED: ONDA-25 PO (14:01)
[2016-11-30] MEDS ORDERED: LEVO500T90 PO (14:01)
[2016-11-30] MEDS ORDERED: MIRT15TA7 PO (14:01)
[2016-11-30] MEDS ORDERED: ALLA266C2 TP (14:01)
[2016-11-30] MEDS ORDERED: ASPI81TA2 PO (14:01)
== END 2016-11-30 13:30 | DRG 689 ==
LOC: ER 14:59 → TELE 17:35 → MED 11-25 10:22 → UNDODISIN 11-29 19:30
PROVIDERS: ADMIT Internal Medicine; ATTEND Internal Medicine
DX: N39.0 Urinary tract infection, site not specified (principal); G93.40 Encephalopathy, unspecified; F33.3 Major depressive disorder, recurrent, severe with psychotic symptoms; F23 Brief psychotic disorder; R41.82 Altered mental status, unspecified; K21.9 Gastro-esophageal reflux disease without esophagitis; I10 Essential (primary) hypertension; E78.5 Hyperlipidemia, unspecified; E87.6 Hypokalemia; F03.90 Unspecified dementia, unspecified severity, without behavioral disturbance, psychotic disturbance, mood disturbance, and anxiety; N32.81 Overactive bladder; S90.422A Blister (nonthermal), left great toe, initial encounter
CPT/HCPCS: 36415; 70450-TC; 71010-TC; 80048-TC; 80076-TC; 80305; 81000-TC; 83605-TC; 84484-TC; 85025-TC; 85730-TC; 87040-TC; 87081-TC; 87086-TC; 87186-TC; A4606; G0480; J0696; J7050; J7060; Z7610

== ENCOUNTER 2016-11-30 13:43 | Inpatient (IN) | payer MEDICARE, OTHER ==
[~2016-11-30] VITALS: Ht 160 cm; Wt 63.0 kg
[2016-11-30 14:00] VITALS: BP 166/78
[2016-11-30] MEDS ORDERED: ONDA-25 PO (14:01)
[2016-11-30] MEDS ORDERED: LEVO500T90 PO (14:01)
[2016-11-30] MEDS ORDERED: ASPI81TA2 PO (14:01)
[2016-11-30] MEDS ORDERED: OLAN5TAB3 PO (14:01)
[2016-11-30] MEDS ORDERED: ACET-868 PO (14:01)
[2016-11-30] MEDS ORDERED: ALLA266C2 TP (14:01)
[2016-11-30] MEDS ORDERED: MIRT15TA7 PO (14:01)
[2016-11-30] MEDS ORDERED: DIVA125C PO (14:01)
[2016-11-30] MEDS ORDERED: MAGNESIUM HYDROXIDE 30 ML UDC PO PRN (14:30)
[2016-11-30] MEDS ORDERED: ACETAMINOPHEN 325 MG TABLET PO PRN ×2 (14:30→15:30)
[2016-11-30] MEDS ORDERED: MAG HYDROX/AL HYDROX/SIMETH 30 ML UDC PO PRN (14:30)
[2016-11-30] MEDS ORDERED: HYDROCHLOROTHIAZIDE 25 MG TABLET PO PRN ×2 (15:30→17:00)
[2016-11-30] MEDS ORDERED: ONDANSETRON 4 MG TAB.RAPDIS PO PRN (15:30)
[2016-11-30] MEDS ORDERED: ZOLPIDEM TARTRATE 5 MG TABLET PO PRN (15:30)
--- NOTE | 2016-11-30 15:50 | NUR ---
GPS RN: ADMITTED PATIENT FROM MED SURG AT 1400. PATIENT IS ON 51 HOLD FOR GD. HX OF ACUTE PSYCHOSIS, DEMENTIA, UTI, AND HTN. PATIENT IS A/OX1, CONFUSED, DISORIENTED, MUMBLES TO SELF, POOR HISTORIAN. PATIENT IS GUARDED AND UNCOOPERATIVE WITH SKIN ASSESSMENT, PUSHED RN'S ARM. NO SKIN ISSUES ON VISIBLE BODY VANESSA. CONTRABAND DONE. PATIENT AMBULATES WITH STEADY GAIT, CONTINENT. DR. HALL IN THE UNIT, ADMITTING ORDERS RECEIVED. DR. YEAGER CONTACTED, MEDS RECONCILED AND FAXED TO THE PHARMACY, ORDERS NOTED AND CARRIED OUT. PATIENT'S DAUGHTER MAXWELL LUX NOTIFIED VIA VOICEMAIL. PATIENT IS NOT IN ANY APPARENT DISTRESS, NO SOB. CONTINUE TO MONITOR.
[2016-11-30 16:00] VITALS: BP 148/91
[2016-11-30] MEDS ORDERED: hydrALAZINE HCL 25 MG TABLET PO PRN (16:00)
--- NOTE | 2016-11-30 16:58 | NUR ---
GPS RN: PATIENT REFUSED MRSA SWAB X3.
[2016-11-30] MEDS: OLANZAPINE 5 MG TABLET PO SCH (17:32)
[2016-11-30] MEDS: OXYBUTYNIN CHLORIDE 5 MG TABLET PO SCH (17:32)
[2016-11-30] MEDS: DOCUSATE SODIUM 100 MG CAPSULE PO SCH (17:32)
[2016-11-30] MEDS: MEMANTINE HCL 5 MG TABLET PO SCH (17:32)
--- NOTE | 2016-11-30 19:30 | NUR ---
GPS RN NOTE, RECEIVED PATIENT AWAKE AND IN BED, NO S/S OR COMPLAINTS OF PAIN AT THIS TIME. PATIENT IS DISPLAYING NO S/S OF APPARENT DISTRESS AT THIS TIME. PATIENT BREATHING IS UNLABORED WITH EQUAL RISE AND FALL OF THE CHEST. PATIENT IS ALERT AND ORIENTED X 2 ON ROOM AIR WITH A SPO2 97%. PATIENT COMPLAINT WITH MEDICATION, ANXIOUS, COOPERATIVE, CONFUSED AT TIMES, WANDERING, AND NEEDS REORIENTATION. PATIENT DENIES SUICIDE AND HOMICIDAL IDEATIONS AT THIS TIME. PATIENT ASSISTED WITH TURNING AND REPOSITIONING Q2HR AND PRN FOR COMFORT AND CIRCULATION. PATIENT HAS NO NEEDS AT THIS TIME. PATIENT EDUCATED ON THE USE OF THE CALL CAMPOS. PATIENT BED SIDE RAILS UP X2 FOR SAFETY, BED IS LOCKED AND LOW WILL CONTINUE TO MONITOR AND MAINTAIN SAFETY.
[2016-11-30 20:00] VITALS: BP 126/74
[2016-11-30] MEDS: MIRTAZAPINE 15 MG TABLET PO SCH (21:18)
[2016-11-30] MEDS: DONEPEZIL 5 MG TABLET PO SCH (21:18)
[2016-11-30] MEDS: DIVALPROEX SODIUM 125 MG CAP.SPRINK PO SCH (21:18)
[2016-11-30] MEDS: ATORVASTATIN 10 MG TABLET PO SCH (21:19)
[2016-12-01] MEDS: PANTOPRAZOLE 40 MG TABLET.DR PO SCH (07:31)
[2016-12-01 08:12] LABS: ALBUMIN 3.1 g/dL (3.4-5.0); BILIRUBIN,TOTAL 0.3 mg/dL (0.2-1.0); CALCIUM, SERUM 9.3 mg/dL (8.5-10.1); CREATININE 0.8 mg/dL (0.6-1.3); POTASSIUM 3.9 mmol/L (3.5-5.1); TOTAL PROTEIN, SERUM 7.3 g/dL (6.4-8.2)
[2016-12-01 08:18] VITALS: BP 143/86
[2016-12-01] MEDS: MEMANTINE HCL 5 MG TABLET PO SCH ×2 (08:52→17:08)
[2016-12-01] MEDS: DIVALPROEX SODIUM 125 MG CAP.SPRINK PO SCH ×2 (08:52→21:07)
[2016-12-01] MEDS: OXYBUTYNIN CHLORIDE 5 MG TABLET PO SCH ×2 (08:52→17:08)
[2016-12-01] MEDS: DOCUSATE SODIUM 100 MG CAPSULE PO SCH ×2 (08:52→17:08)
[2016-12-01] MEDS: AMLODIPINE BESYLATE 10 MG TABLET PO SCH (08:53)
[2016-12-01] MEDS: OLANZAPINE 5 MG TABLET PO SCH ×2 (08:53→17:08)
[2016-12-01] MEDS: ASPIRIN 81 MG TAB.CHEW PO SCH (08:53)
[2016-12-01] MEDS: LEVOFLOXACIN (500MG) 500 MG TABLET PO SCH (11:56)
[2016-12-01 15:55] VITALS: BP 132/92
[2016-12-01 19:32] VITALS: BP 146/74
[2016-12-01] MEDS: MIRTAZAPINE 15 MG TABLET PO SCH (21:07)
[2016-12-01] MEDS: DONEPEZIL 5 MG TABLET PO SCH (21:08)
[2016-12-01] MEDS: ATORVASTATIN 10 MG TABLET PO SCH (21:09)
[2016-12-01] MEDS: ZOLPIDEM TARTRATE 5 MG TABLET PO PRN (22:38)
[2016-12-02] MEDS: DOCUSATE SODIUM 100 MG CAPSULE PO SCH ×2 (07:54→17:29)
[2016-12-02] MEDS: AMLODIPINE BESYLATE 10 MG TABLET PO SCH (07:54)
[2016-12-02] MEDS: ASPIRIN 81 MG TAB.CHEW PO SCH (07:55)
[2016-12-02] MEDS: OXYBUTYNIN CHLORIDE 5 MG TABLET PO SCH ×2 (07:55→17:30)
[2016-12-02] MEDS: MEMANTINE HCL 5 MG TABLET PO SCH ×2 (07:55→17:30)
[2016-12-02] MEDS: PANTOPRAZOLE 40 MG TABLET.DR PO SCH (07:55)
[2016-12-02] MEDS: DIVALPROEX SODIUM 125 MG CAP.SPRINK PO SCH ×2 (07:55→21:12)
[2016-12-02] MEDS: OLANZAPINE 5 MG TABLET PO SCH ×2 (07:56→17:29)
[2016-12-02 08:00] VITALS: BP 151/87
[2016-12-02] MEDS: LEVOFLOXACIN (500MG) 500 MG TABLET PO SCH (12:23)
--- NOTE | 2016-12-02 14:04 | NUR ---
WOUND CARE CONSULT: PT SEEN FOR LEFT GREAT TOE INTACT BLISTER WITH BLACK COLOR, PRESENT ON ADMISSION. RECOMMEND DPM CONSULT. DEFER TO MD. RECOMMENDATIONS MADE FOR SKIN PROTECTION. DISCUSSED WITH NURSING STAFF. PT SOMEWHAT UNCOOPERATIVE AT TIMES WITH SKIN ASSESSMENT. WILL SEE PRN. Addendum: 12/02/16 at 1405 by BILL VILLELA WNDNU Amended: Links added.
--- NOTE | 2016-12-02 15:39 | NUR ---
Initial Discharge Note: Patient lives at home with her daughter [address] [place] [address]. ([phone]). children's service worker spoke to patient's daughter Ambar Emerson ([phone]) who stated that she would like patient placed in a facility for further stabilization before taking her home. children's service worker will help form a safe and proper discharge.
[2016-12-02 16:00] VITALS: BP 148/78
[2016-12-02] MEDS: CLOTRIMAZOLE 1% 15 GM TUBE TP SCH (17:39)
--- NOTE | 2016-12-02 18:30 | NUR ---
UA/UC SPECIMEN CLEAN CATCH COLLECTED, CALLED LAB FOR SWIM COACH.
[2016-12-02 19:27] LABS: APPEARANCE,URINE SL CLOUDY (CLEAR); BILIRUBIN,URINE NEGATIVE (NEGATIVE); BLOOD, URINE 1+ Ery/uL (NEGATIVE); COLOR,URINE YELLOW (YELLOW); KETONES,URINE NEGATIVE (NEGATIVE); LEUKOCYTE ESTERASE ,URINE NEGATIVE (NEGATIVE); NITRITE, URINE NEGATIVE (NEGATIVE); PROTEIN,URINE NEGATIVE (NEGATIVE); UGLUCOSE NEGATIVE (NEGATIVE); UROBILINOGEN,URINE 0.2 EU/dL (0.2)
[2016-12-02 19:40] VITALS: BP 138/79
[2016-12-02 19:51] LABS: BACTERIA,URINE None seen /HPF (None Seen); RBC,URINE 0-2 /HPF (0-2); SQUAMOUS EPITHELIAL CELL,UR Few /HPF (None Seen); WBC,URINE 0-2 /HPF (0-3)
[2016-12-02] MEDS: DONEPEZIL 5 MG TABLET PO SCH (21:12)
[2016-12-02] MEDS: ATORVASTATIN 10 MG TABLET PO SCH (21:12)
[2016-12-02] MEDS: MIRTAZAPINE 15 MG TABLET PO SCH (21:13)
[2016-12-03 08:00] VITALS: BP 153/80
[2016-12-03] MEDS: OXYBUTYNIN CHLORIDE 5 MG TABLET PO SCH ×2 (08:12→17:45)
[2016-12-03] MEDS: DIVALPROEX SODIUM 125 MG CAP.SPRINK PO SCH ×2 (08:12→21:10)
[2016-12-03] MEDS: MEMANTINE HCL 5 MG TABLET PO SCH ×2 (08:12→17:44)
[2016-12-03] MEDS: PANTOPRAZOLE 40 MG TABLET.DR PO SCH (08:12)
[2016-12-03] MEDS: DOCUSATE SODIUM 100 MG CAPSULE PO SCH ×2 (08:12→17:45)
[2016-12-03] MEDS: OLANZAPINE 5 MG TABLET PO SCH ×2 (08:12→17:45)
[2016-12-03] MEDS: ASPIRIN 81 MG TAB.CHEW PO SCH (08:12)
[2016-12-03] MEDS: AMLODIPINE BESYLATE 10 MG TABLET PO SCH (08:13)
[2016-12-03] MEDS: CLOTRIMAZOLE 1% 15 GM TUBE TP SCH ×2 (08:20→17:49)
[2016-12-03] MEDS: Z GUARD REMEDY 2 OZ OINT TP PRN (08:23)
[2016-12-03] MEDS: LEVOFLOXACIN (500MG) 500 MG TABLET PO SCH (12:01)
[2016-12-03 16:00] VITALS: BP 120/67
[2016-12-03] MEDS: BACI/NEOM/POLY B OINT PKT 1 UDPKT PACKET TP SCH (17:48)
[2016-12-03 20:56] VITALS: BP 133/71
[2016-12-03] MEDS: ATORVASTATIN 10 MG TABLET PO SCH (21:11)
[2016-12-03] MEDS: MIRTAZAPINE 15 MG TABLET PO SCH (21:11)
[2016-12-03] MEDS: DONEPEZIL 5 MG TABLET PO SCH (21:11)
[2016-12-04 08:00] VITALS: BP 135/67
[2016-12-04] MEDS: OXYBUTYNIN CHLORIDE 5 MG TABLET PO SCH ×2 (08:21→17:10)
[2016-12-04] MEDS: DIVALPROEX SODIUM 125 MG CAP.SPRINK PO SCH ×3 (08:21→17:10)
[2016-12-04] MEDS: DOCUSATE SODIUM 100 MG CAPSULE PO SCH ×2 (08:22→17:09)
[2016-12-04] MEDS: OLANZAPINE 5 MG TABLET PO SCH ×2 (08:22→17:10)
[2016-12-04] MEDS: AMLODIPINE BESYLATE 10 MG TABLET PO SCH (08:22)
[2016-12-04] MEDS: PANTOPRAZOLE 40 MG TABLET.DR PO SCH (08:22)
[2016-12-04] MEDS: MEMANTINE HCL 5 MG TABLET PO SCH ×2 (08:22→17:09)
[2016-12-04] MEDS: FLUCONAZOLE (100 MG) 100 MG TABLET PO SCH (08:22)
[2016-12-04] MEDS: CLOTRIMAZOLE 1% 15 GM TUBE TP SCH ×2 (08:41→17:28)
[2016-12-04] MEDS: BACI/NEOM/POLY B OINT PKT 1 UDPKT PACKET TP SCH (08:41)
[2016-12-04] MEDS: Z GUARD REMEDY 2 OZ OINT TP PRN (08:42)
[2016-12-04] MEDS: ASPIRIN 81 MG TAB.CHEW PO SCH (09:38)
[2016-12-04] MEDS: LEVOFLOXACIN (500MG) 500 MG TABLET PO SCH (12:22)
--- NOTE | 2016-12-04 15:14 | NUR ---
mission worker faxed initial review packet to [facility] ( / ) [id number] [place] [address]. mission worker will follow-up.
[2016-12-04 16:00] VITALS: BP 116/75
[2016-12-04] MEDS: NEOMY SULF/BACITRAC ZN/POLY 15 GM TUBE TP SCH (17:28)
[2016-12-04 20:10] VITALS: BP 145/71
[2016-12-04] MEDS: DONEPEZIL 5 MG TABLET PO SCH (21:19)
[2016-12-04] MEDS: ATORVASTATIN 10 MG TABLET PO SCH (21:19)
[2016-12-04] MEDS: MIRTAZAPINE 15 MG TABLET PO SCH (21:19)
[2016-12-05] MEDS: FLUCONAZOLE (100 MG) 100 MG TABLET PO SCH (08:19)
[2016-12-05] MEDS: PANTOPRAZOLE 40 MG TABLET.DR PO SCH (08:19)
[2016-12-05] MEDS: MEMANTINE HCL 5 MG TABLET PO SCH ×2 (08:19→16:35)
[2016-12-05] MEDS: ASPIRIN 81 MG TAB.CHEW PO SCH (08:19)
[2016-12-05] MEDS: DOCUSATE SODIUM 100 MG CAPSULE PO SCH ×2 (08:20→16:35)
[2016-12-05] MEDS: AMLODIPINE BESYLATE 10 MG TABLET PO SCH (08:20)
[2016-12-05] MEDS: NEOMY SULF/BACITRAC ZN/POLY 15 GM TUBE TP SCH ×2 (08:20→16:42)
[2016-12-05] MEDS: OLANZAPINE 5 MG TABLET PO SCH ×2 (08:20→16:35)
[2016-12-05] MEDS: DIVALPROEX SODIUM 125 MG CAP.SPRINK PO SCH ×3 (08:20→16:35)
[2016-12-05] MEDS: OXYBUTYNIN CHLORIDE 5 MG TABLET PO SCH ×2 (08:20→16:35)
[2016-12-05] MEDS: Z GUARD REMEDY 2 OZ OINT TP PRN (08:21)
[2016-12-05 08:37] VITALS: BP_SYST 104; BP_SYST 139; BP_DIAS 62; BP_DIAS 72
[2016-12-05] MEDS: CLOTRIMAZOLE 1% 15 GM TUBE TP SCH ×2 (08:43→16:42)
[2016-12-05] MEDS: LEVOFLOXACIN (500MG) 500 MG TABLET PO SCH (13:44)
[2016-12-05 16:41] VITALS: BP 132/86
--- NOTE | 2016-12-05 17:00 | NUR ---
Assumed care, pt. was in the dining room, disorganized, no social interactions. No distress and no agitation noted. Will continue to monitor for safety.
--- NOTE | 2016-12-05 17:33 | NUR ---
Pt. refused accu checked, was explained on the importance and the risk and still refusing. Will continue to monitor.
[2016-12-05 20:00] VITALS: BP 123/77
[2016-12-05] MEDS: ATORVASTATIN 10 MG TABLET PO SCH (21:11)
[2016-12-05] MEDS: MIRTAZAPINE 15 MG TABLET PO SCH (21:12)
[2016-12-05] MEDS: DONEPEZIL 5 MG TABLET PO SCH (21:12)
[2016-12-06 08:00] VITALS: BP 128/66
[2016-12-06] MEDS: OLANZAPINE 5 MG TABLET PO SCH ×2 (08:08→17:11)
[2016-12-06] MEDS: AMLODIPINE BESYLATE 10 MG TABLET PO SCH (08:08)
[2016-12-06] MEDS: DIVALPROEX SODIUM 125 MG CAP.SPRINK PO SCH ×3 (08:08→17:11)
[2016-12-06] MEDS: MEMANTINE HCL 5 MG TABLET PO SCH ×2 (08:08→17:11)
[2016-12-06] MEDS: OXYBUTYNIN CHLORIDE 5 MG TABLET PO SCH ×2 (08:08→17:11)
[2016-12-06] MEDS: PANTOPRAZOLE 40 MG TABLET.DR PO SCH (08:08)
[2016-12-06] MEDS: ASPIRIN 81 MG TAB.CHEW PO SCH (08:08)
[2016-12-06] MEDS: DOCUSATE SODIUM 100 MG CAPSULE PO SCH ×2 (08:08→17:11)
[2016-12-06] MEDS: FLUCONAZOLE (100 MG) 100 MG TABLET PO SCH (08:09)
--- NOTE | 2016-12-06 08:26 | NUR ---
Per Juarez, from facility patient has been accepted to [facility] ( / ) [id number] [address] [place] [address]. social worker school will follow-up.
[2016-12-06] MEDS: CLOTRIMAZOLE 1% 15 GM TUBE TP SCH ×2 (08:54→17:13)
[2016-12-06] MEDS: NEOMY SULF/BACITRAC ZN/POLY 15 GM TUBE TP SCH ×2 (08:54→17:13)
[2016-12-06 16:00] VITALS: BP 141/75
[2016-12-06 20:00] VITALS: BP 143/70
[2016-12-06] MEDS: DONEPEZIL 5 MG TABLET PO SCH (21:39)
[2016-12-06] MEDS: ATORVASTATIN 10 MG TABLET PO SCH (21:39)
[2016-12-06] MEDS: MIRTAZAPINE 15 MG TABLET PO SCH (21:39)
[2016-12-07 08:00] VITALS: BP 130/78
[2016-12-07] MEDS: DIVALPROEX SODIUM 125 MG CAP.SPRINK PO SCH ×3 (08:15→16:52)
[2016-12-07] MEDS: FLUCONAZOLE (100 MG) 100 MG TABLET PO SCH (08:16)
[2016-12-07] MEDS: DOCUSATE SODIUM 100 MG CAPSULE PO SCH ×3 (08:16→17:00)
[2016-12-07] MEDS: MEMANTINE HCL 5 MG TABLET PO SCH ×2 (08:16→16:53)
[2016-12-07] MEDS: OLANZAPINE 5 MG TABLET PO SCH ×2 (08:16→16:53)
[2016-12-07] MEDS: ASPIRIN 81 MG TAB.CHEW PO SCH (08:16)
[2016-12-07] MEDS: OXYBUTYNIN CHLORIDE 5 MG TABLET PO SCH ×3 (08:16→17:00)
[2016-12-07] MEDS: AMLODIPINE BESYLATE 10 MG TABLET PO SCH (08:17)
[2016-12-07] MEDS: PANTOPRAZOLE 40 MG TABLET.DR PO SCH (08:17)
[2016-12-07] MEDS: CLOTRIMAZOLE 1% 15 GM TUBE TP SCH ×2 (09:29→16:53)
[2016-12-07] MEDS: NEOMY SULF/BACITRAC ZN/POLY 15 GM TUBE TP SCH ×2 (09:30→16:53)
[2016-12-07 16:00] VITALS: BP 135/59
[2016-12-07 20:00] VITALS: BP 158/79
[2016-12-07] MEDS: DONEPEZIL 5 MG TABLET PO SCH (21:04)
[2016-12-07] MEDS: MIRTAZAPINE 15 MG TABLET PO SCH (21:05)
[2016-12-07] MEDS: ATORVASTATIN 10 MG TABLET PO SCH (21:35)
[2016-12-08 08:31] VITALS: BP 118/67
[2016-12-08] MEDS: MEMANTINE HCL 5 MG TABLET PO SCH ×2 (08:46→16:42)
[2016-12-08] MEDS: ASPIRIN 81 MG TAB.CHEW PO SCH (08:46)
[2016-12-08] MEDS: OXYBUTYNIN CHLORIDE 5 MG TABLET PO SCH ×2 (08:46→16:43)
[2016-12-08] MEDS: OLANZAPINE 5 MG TABLET PO SCH ×2 (08:46→16:43)
[2016-12-08] MEDS: PANTOPRAZOLE 40 MG TABLET.DR PO SCH (08:46)
[2016-12-08] MEDS: AMLODIPINE BESYLATE 10 MG TABLET PO SCH (08:46)
[2016-12-08] MEDS: FLUCONAZOLE (100 MG) 100 MG TABLET PO SCH (08:47)
[2016-12-08] MEDS: DOCUSATE SODIUM 100 MG CAPSULE PO SCH ×2 (08:47→16:43)
[2016-12-08] MEDS: NEOMY SULF/BACITRAC ZN/POLY 15 GM TUBE TP SCH ×2 (08:47→16:44)
[2016-12-08] MEDS: CLOTRIMAZOLE 1% 15 GM TUBE TP SCH ×2 (08:47→16:43)
[2016-12-08] MEDS: DIVALPROEX SODIUM 125 MG CAP.SPRINK PO SCH ×3 (08:47→16:43)
[2016-12-08 16:00] VITALS: BP 141/75
[2016-12-08 20:01] VITALS: BP 150/70
--- NOTE | 2016-12-08 20:25 | NUR ---
GPS/RN NOTE: PATIENT WAS SEEN PACING AROUND THE UNIT, KEEP COMING INSIDE OTHER ROOMS, RE-DIRECTABLE, CONFUSED. COOPERATIVE. NO APPARENT DISTRESS NOTED.
[2016-12-08] MEDS: DONEPEZIL 5 MG TABLET PO SCH (21:06)
[2016-12-08] MEDS: ATORVASTATIN 10 MG TABLET PO SCH (21:06)
[2016-12-08] MEDS: MIRTAZAPINE 15 MG TABLET PO SCH (21:07)
[2016-12-09 08:00] VITALS: BP 142/82
[2016-12-09] MEDS: DIVALPROEX SODIUM 125 MG CAP.SPRINK PO SCH ×3 (08:09→16:27)
[2016-12-09] MEDS: PANTOPRAZOLE 40 MG TABLET.DR PO SCH (08:09)
[2016-12-09] MEDS: ASPIRIN 81 MG TAB.CHEW PO SCH (08:10)
[2016-12-09] MEDS: OXYBUTYNIN CHLORIDE 5 MG TABLET PO SCH ×2 (08:10→16:27)
[2016-12-09] MEDS: MEMANTINE HCL 5 MG TABLET PO SCH ×2 (08:10→16:27)
[2016-12-09] MEDS: OLANZAPINE 5 MG TABLET PO SCH ×2 (08:10→16:27)
[2016-12-09] MEDS: DOCUSATE SODIUM 100 MG CAPSULE PO SCH ×2 (08:10→16:27)
[2016-12-09] MEDS: AMLODIPINE BESYLATE 10 MG TABLET PO SCH (08:10)
[2016-12-09] MEDS: FLUCONAZOLE (100 MG) 100 MG TABLET PO SCH (08:10)
[2016-12-09] MEDS: NEOMY SULF/BACITRAC ZN/POLY 15 GM TUBE TP SCH ×2 (08:11→16:34)
[2016-12-09] MEDS: Z GUARD REMEDY 2 OZ OINT TP PRN (08:11)
[2016-12-09] MEDS: CLOTRIMAZOLE 1% 15 GM TUBE TP SCH ×2 (08:11→16:34)
[2016-12-09 16:00] VITALS: BP 137/60
[2016-12-09 19:43] VITALS: BP 149/76
[2016-12-09] MEDS: ATORVASTATIN 10 MG TABLET PO SCH (21:41)
[2016-12-09] MEDS: DONEPEZIL 5 MG TABLET PO SCH (21:41)
[2016-12-09] MEDS: MIRTAZAPINE 15 MG TABLET PO SCH (21:41)
[2016-12-09 22:00] VITALS: BP 132/74
--- NOTE | 2016-12-10 06:27 | NUR ---
RN GPS NOTE PT .REMAINED IN STABLE CONDITION RESTING IN HER BED ,NO ACUTE DISTRESS NOTED ATTENDED ALL NEEDS AND ANTICIPATED ,WILL ENDORSE TO NEXT SHIFT FOR CONTINUITY OF CARE
[2016-12-10 08:00] VITALS: BP 154/76
[2016-12-10] MEDS: DIVALPROEX SODIUM 125 MG CAP.SPRINK PO SCH ×3 (08:25→16:19)
[2016-12-10] MEDS: DOCUSATE SODIUM 100 MG CAPSULE PO SCH ×2 (08:25→16:20)
[2016-12-10] MEDS: ASPIRIN 81 MG TAB.CHEW PO SCH (08:25)
[2016-12-10] MEDS: OLANZAPINE 5 MG TABLET PO SCH ×2 (08:26→16:19)
[2016-12-10] MEDS: FLUCONAZOLE (100 MG) 100 MG TABLET PO SCH (08:26)
[2016-12-10] MEDS: AMLODIPINE BESYLATE 10 MG TABLET PO SCH (08:26)
[2016-12-10] MEDS: CLOTRIMAZOLE 1% 15 GM TUBE TP SCH ×2 (08:26→16:20)
[2016-12-10] MEDS: OXYBUTYNIN CHLORIDE 5 MG TABLET PO SCH ×2 (08:26→16:20)
[2016-12-10] MEDS: PANTOPRAZOLE 40 MG TABLET.DR PO SCH (08:26)
[2016-12-10] MEDS: MEMANTINE HCL 5 MG TABLET PO SCH ×2 (08:26→16:19)
[2016-12-10] MEDS: Z GUARD REMEDY 2 OZ OINT TP PRN (08:27)
[2016-12-10] MEDS: NEOMY SULF/BACITRAC ZN/POLY 15 GM TUBE TP SCH ×2 (08:27→16:20)
--- NOTE | 2016-12-10 11:15 | NUR ---
shop worker contacted patient's daughter Ambar Emerson ([phone]) to inform her that patient will be discharged tomorrow. Patient's daughter stated, "I am busy, I am at a doctors appointment, can you call me back like at 1:00Pm." shop worker will attempt to speak to patient's daughter at 1:00pm regarding discharge plan for tomorrow.
--- NOTE | 2016-12-10 13:07 | NUR ---
reinforcing iron worker helper attempted to contact patient's daughter Ambar Emerson ([phone]) three times, However she was unavailable and social media job titles was unable to leave a message as her voicemail box was full. reinforcing iron worker helper will follow-up.
--- NOTE | 2016-12-10 14:05 | NUR ---
show worker faxed initial review packet to [facility] (phone: [phone]/ ) [address] [place] [address]. show worker will follow-up.
[2016-12-10 16:00] VITALS: BP 142/65
--- NOTE | 2016-12-10 19:30 | NUR ---
GPS RN NOTE, RECEIVED PATIENT AWAKE AND IN DINNING ROOM, NO S/S OR COMPLAINTS OF PAIN AT THIS TIME. PATIENT HAS FAMILY VISITING HER. PATIENT IS DISPLAYING NO S/S OF APPARENT DISTRESS AT THIS TIME. PATIENT BREATHING IS UNLABORED WITH EQUAL RISE AND FALL OF THE CHEST. PATIENT IS ALERT AND ORIENTED X 2 ON ROOM AIR WITH A SPO2 95%. PATIENT COMPLAINT WITH MEDICATION, ANXIOUS, COOPERATIVE, CONFUSED AT TIMES, WANDERING, AND NEEDS REORIENTATION. PATIENT DENIES SUICIDE AND HOMICIDAL IDEATIONS AT THIS TIME. PATIENT ASSISTED WITH TURNING AND REPOSITIONING Q2HR AND PRN FOR COMFORT AND CIRCULATION. PATIENT HAS NO NEEDS AT THIS TIME. PATIENT EDUCATED ON THE USE OF THE CALL CAMPOS. PATIENT BED SIDE RAILS UP X2 FOR SAFETY, BED IS LOCKED AND LOW WILL CONTINUE TO MONITOR AND MAINTAIN SAFETY.
[2016-12-10 21:19] VITALS: BP 140/80
[2016-12-10] MEDS: ATORVASTATIN 10 MG TABLET PO SCH (22:00)
[2016-12-10] MEDS: DONEPEZIL 5 MG TABLET PO SCH (22:00)
[2016-12-10] MEDS: MIRTAZAPINE 15 MG TABLET PO SCH (22:01)
--- NOTE | 2016-12-10 22:32 | NUR ---
GPS RN NOTE, PATIENT DAUGHTER WOULD LIKE HER MOTHER TO BE SEEN BY A NEUROLOGIST AND HAVE A MRI DONE TO FIND OUT WHY SHE IS SO CONFUSED. PAGED DR LILLIAM YEAGER AND INFORMED HIM OF MY FINDINGS. DR YEAGER ORDERED TO DUE A MRI OF THE BRAIN WITH OUT CONTRAST AND STATED HE WOULD PUT IN A CONSULT FOR A NEUROLOGIST. ALL ORDERS NOTED AND CARRIED OUT. WILL CONTINUE TO MONITOR THIS PATIENT.
[2016-12-11 07:17] LABS: BASOPHILS % (AUTO) 1.1 % (0.0-2.0); EOSINOPHILS # (AUTO) 0.1 /CMM (0.0-0.7); EOSINOPHILS % (AUTO) 3.5 % (0.0-6.0); HEMATOCRIT 37 % (33-45); HEMOGLOBIN 12.5 g/dL (11.5-14.8); LYMPHOCYTES # (AUTO) 1.2 /CMM (0.8-4.8); LYMPHOCYTES % (AUTO) 29.6 % (20.0-44.0); MEAN CORPUSCULAR HEMOGLOBIN 31 PG (26.0-33.0); MEAN CORPUSCULAR HGB CONC 34 g/dl (31.0-36.0); MEAN CORPUSCULAR VOLUME 90 fL (82-100); MONOCYTES # (AUTO) 0.5 /CMM (0.1-1.30); MONOCYTES % (AUTO) 13.6 % (2.0-12.0); NEUTROPHILS # (AUTO) 2.1 /CMM (1.8-8.9); NEUTROPHILS % (AUTO) 52.2 % (43.0-81.0); PLATELET COUNT (AUTO) 173 /CMM (150-450); RDW COEFFICIENT OF VARIATION 13.4 (11.5-15.0); RED BLOOD CELL COUNT(AUTO) 4.05 MIL/uL (4.0-5.2)
[2016-12-11 07:27] LABS: ALBUMIN 3.2 g/dL (3.4-5.0); BILIRUBIN,TOTAL 0.3 mg/dL (0.2-1.0); CALCIUM, SERUM 9.6 mg/dL (8.5-10.1); CREATININE 0.7 mg/dL (0.6-1.3); POTASSIUM 4.3 mmol/L (3.5-5.1); TOTAL PROTEIN, SERUM 7.6 g/dL (6.4-8.2)
[2016-12-11 08:12] VITALS: BP 125/71
[2016-12-11] MEDS: MEMANTINE HCL 5 MG TABLET PO SCH ×2 (08:17→16:15)
[2016-12-11] MEDS: OXYBUTYNIN CHLORIDE 5 MG TABLET PO SCH ×2 (08:17→16:16)
[2016-12-11] MEDS: DIVALPROEX SODIUM 125 MG CAP.SPRINK PO SCH ×3 (08:18→16:16)
[2016-12-11] MEDS: ASPIRIN 81 MG TAB.CHEW PO SCH (08:18)
[2016-12-11] MEDS: FLUCONAZOLE (100 MG) 100 MG TABLET PO SCH (08:18)
[2016-12-11] MEDS: PANTOPRAZOLE 40 MG TABLET.DR PO SCH (08:18)
[2016-12-11] MEDS: OLANZAPINE 5 MG TABLET PO SCH ×2 (08:18→16:15)
[2016-12-11] MEDS: DOCUSATE SODIUM 100 MG CAPSULE PO SCH ×2 (08:18→16:15)
[2016-12-11] MEDS: AMLODIPINE BESYLATE 10 MG TABLET PO SCH (08:18)
[2016-12-11] MEDS: NEOMY SULF/BACITRAC ZN/POLY 15 GM TUBE TP SCH ×2 (09:01→16:25)
[2016-12-11] MEDS: CLOTRIMAZOLE 1% 15 GM TUBE TP SCH ×2 (09:01→16:25)
--- NOTE | 2016-12-11 09:35 | NUR ---
scaffold worker spoke to patient's daughter Ambar Emerson ([phone]) regarding the patient's discharge plan and patient's daughter was not agreeable with the discharge plan and requested to speak to [facility] Director. scaffold worker transferred call to [facility] Director.
--- NOTE | 2016-12-11 11:06 | NUR ---
Per Hallie from facility, patient has been accepted to [facility] (phone: [phone]/ ) [address] [place] [address].
--- NOTE | 2016-12-11 11:33 | NUR ---
Received voicemail from bethelAmbar [phone]. She is dissatisfied with the communication from social service and Dr Bowles. She says she " was given wrong information re [facility], [facility][Note 3]". She is agreeing to visit [facility] and [facility] today. She was asking for DENITRATOR's number. She is very angry with Dr Bowles for only calling her once last Wednesday 12/13. Dr Bowles agreed to call Ambar again now today. Daughter threatened to complain about Dr Bowles to DENITRATOR. She is wanting a lot more tests and feels "she was not given enough notice of discharge." Will discuss plan of care with Gemma, assigned transition social worker. She asked for this policy writer's full name and director of GPS's phone number. She spoke at length about concerns re her mother's care on the unit but could not voice any specific concerns except that " Dr Bowles is giving too much medication and she feels her mother is worse." She alleges that the nurses on the unit said " you won't get a call back from Dr Bowles." Daughter may be unrealistic re her mother's condition and seems to not fully understand dementia. This policy writer tried to provide some education in this regard. Listened at length to daughter's concerns. Church Business Administrator advised Harjit director of GPS and Tomer RAMON by voicemail re patient's concerns. Stevieclemkasey has this policy writer's voicemail now and agreed to call with any other concerns. Plan: Bethel will visit facilities today and call Gemma back.
--- NOTE | 2016-12-11 12:18 | NUR ---
radio survey worker spoke to patient's daughter Ambar Emerson ([phone]). Per Ambar, she was going to visit [facility] ([phone]) [address] [address] and [facility] today. radio survey worker informed Ambar that [facility] was not a locked facility. Ambar stated that she would follow-up with social media senior associate today.
--- NOTE | 2016-12-11 14:50 | NUR ---
steam table worker attempted to contact patient's daughter Ambar Emerson ([phone]). However, she was unavailable. steam table worker was unable to leave a voicemail as her voicemail box was full. steam table worker will attempt again later.
--- NOTE | 2016-12-11 15:19 | NUR ---
template worker spoke to patient's daughter Ambar Emerson ([phone]). Per Ambar, she was agreeable with her mother being discharged to [facility] ([phone]) [address] [address] tomorrow. However, she requested to speak to Dr. Díaz and requested a copy of the MRI. template worker informed Ambar that patient will be discharged tomorrow to [facility], Ambar was agreeable with the discharge plan. template worker informed charge nurse from the unit that patient's daughter Ambar is requesting to speak to Dr. Díaz.
[2016-12-11 16:00] VITALS: BP 122/59
--- NOTE | 2016-12-11 17:36 | NUR ---
GPS RN NOTE: SAWYER NOTICED OF NURO CONSULT
--- NOTE | 2016-12-11 19:30 | NUR ---
RN NOTE; RECEIVED PT UP IN THE CHAIR IN THE DINING ROOM. CALM AND QUIET FOR NOW. BREATHING EVENLY. NO SOB. NAD. NO S/S OR C/O PAIN OR DISCOMFORT. UNDER CLOSE SUPERVISION FOR SAFETY . NEEDS ATTENDED. WILL CONT TO MONITOR.
[2016-12-11 20:00] VITALS: BP 122/71
[2016-12-11] MEDS: DONEPEZIL 5 MG TABLET PO SCH (21:15)
[2016-12-11] MEDS: ATORVASTATIN 10 MG TABLET PO SCH (21:15)
[2016-12-11] MEDS: MIRTAZAPINE 15 MG TABLET PO SCH (21:16)
[2016-12-11] MEDS: ZOLPIDEM TARTRATE 5 MG TABLET PO PRN (22:59)
--- NOTE | 2016-12-11 23:00 | NUR ---
AMBIEN GIVEN ORDERED FOR INSOMNIA. WILL CONT TO MONITOR
--- NOTE | 2016-12-12 06:14 | NUR ---
RN NOTE; PT IN BED AWAKE AND RESPONSIVE W/ EPISODES OF ANXIETY. HAD A GOOD NIGHT SLEEP. NO ACUTE CHANGES OVER THE NIGHT. NO S/S OF HYPO OR HYPERGLYCEMIA. NEEDS ATTENDED .ASSISTED W/ ADLS. BED LOW LOCKED. WILL CONT TO MONITOR AND WILL ENDORSE TO AM SHIFT FOR GEORGE.
[2016-12-12] MEDS: MEMANTINE HCL 5 MG TABLET PO SCH (08:48)
[2016-12-12] MEDS: DIVALPROEX SODIUM 125 MG CAP.SPRINK PO SCH (08:48)
[2016-12-12] MEDS: OXYBUTYNIN CHLORIDE 5 MG TABLET PO SCH (08:49)
[2016-12-12] MEDS: ASPIRIN 81 MG TAB.CHEW PO SCH (08:49)
[2016-12-12] MEDS: PANTOPRAZOLE 40 MG TABLET.DR PO SCH (08:49)
[2016-12-12] MEDS: DOCUSATE SODIUM 100 MG CAPSULE PO SCH (08:49)
[2016-12-12] MEDS: FLUCONAZOLE (100 MG) 100 MG TABLET PO SCH (08:49)
[2016-12-12] MEDS: OLANZAPINE 5 MG TABLET PO SCH (08:49)
[2016-12-12 08:50] VITALS: BP 161/80
[2016-12-12] MEDS: AMLODIPINE BESYLATE 10 MG TABLET PO SCH (08:50)
[2016-12-12] MEDS: CLOTRIMAZOLE 1% 15 GM TUBE TP SCH (08:53)
[2016-12-12] MEDS: NEOMY SULF/BACITRAC ZN/POLY 15 GM TUBE TP SCH (08:53)
--- NOTE | 2016-12-12 09:27 | NUR ---
HUEY confirmed with patient's daughter Ambar Emerson ([phone]) that pt. is being discharged today and she agreed. She has spoken with Dr. Díaz and agrees for pt. to be discharged today to [place] [id number] [email or web address] Addendum: 12/12/16 at 0928 by MONA ARZATE [facility] ([phone]) [address] [facility] [address]
--- NOTE | 2016-12-12 11:40 | NUR ---
GPS/RN PATIENT CLEARED FOR D/C TO [facility] BY DR SNOW AND DR YEAGER. MEDICATIONS RECONCILED BY BOTH DR'S, ALL D/C PAPERWORK SIGNED, PACKET AND MEDICATIONS EXPLAINED TO PATIENT, VERBALIZED UNDERSTANDING, ALTHOUGH PATIENT IS CONFUSED. BELONGINGS RETURNED AND SIGNED FOR BY PATIENT, D/C PICTURES TAKEN, PATIENT DENIES SI/HI/AH AT TIME OF DISCHARGE, PSYCHIATRIC TREATMENT PLANS MET, REPORT CALLED TO ZA AT FACILITY,LEFT UNIT CALM, COOPERATIVE, NO DISTRESS WITH EMT AT SIDE.
--- NOTE | 2016-12-12 13:03 | NUR ---
Discharge Note: Patient was discharged to [facility] ([phone]) [address] [address]. Via med response. Patient's daughter Ambar Emerson ([phone]) was informed. Patient's daughter was agreeable with the discharge plan. Patient's mood and affect were appropriate. Patient denied suicidal and homicidal ideations. Patient will follow-up with Dr. Fernandez [address] [place] [phone] ([phone]) at the facility. Facilitated info to IDT team who are in agreement with discharge arrangement. The multidisciplinary exitcare form was done, printed, signed, and given to the patient.
== END 2016-12-12 11:25 | DRG 885 ==
LOC: GPS 13:43
PROVIDERS: ADMIT Psychiatry & Neurology Psychiatry; ATTEND Internal Medicine
PROC: 0HBRXZZ Excision of Toe Nail, External Approach (ICD-10-PCS; principal; 2016-12-03)
DX: F29 Unspecified psychosis not due to a substance or known physiological condition (principal); F02.80 Dementia in other diseases classified elsewhere, unspecified severity, without behavioral disturbance, psychotic disturbance, mood disturbance, and anxiety; N39.0 Urinary tract infection, site not specified; E78.5 Hyperlipidemia, unspecified; I10 Essential (primary) hypertension; B35.1 Tinea unguium; F32.9 Major depressive disorder, single episode, unspecified; Z87.891 Personal history of nicotine dependence; S90.112A Contusion of left great toe without damage to nail, initial encounter; X58.XXXA Exposure to other specified factors, initial encounter; Y93.9 Activity, unspecified; Y92.89 Other specified places as the place of occurrence of the external cause; S90.422A Blister (nonthermal), left great toe, initial encounter; S90.424A Blister (nonthermal), right lesser toe(s), initial encounter; G30.9 Alzheimer's disease, unspecified; N32.81 Overactive bladder; F01.50 Vascular dementia, unspecified severity, without behavioral disturbance, psychotic disturbance, mood disturbance, and anxiety
CPT/HCPCS: 36415; 70551-TC; 80053-TC; 80164-TC; 81000-TC; 85025-TC; 86301; 87086-TC; 93880-TC; Z7610

== ENCOUNTER 2017-06-24 19:27 | Inpatient (IN) | payer MEDICARE, OTHER ==
[~2017-06-24] VITALS: Ht 160 cm; Wt 65.8 kg
[~2017-06-24 19:27] MED LIST changes: +ACET-868 PO; +ALLA266C2 TP; +ASPI-1169 PO; +DOCU-141 PO; -DOCU-25 PO; +LEVO500T90 PO; +ONDA4TAB10 PO; -PARO10TA3 PO; -POTA8TAB8 PO; -ZOLP5TAB7 PO; +ZOLP5TAB8 PO
--- NOTE | 2017-06-24 19:33 | NUR ---
TO BED 4 BIB FAMILY C/O ALTERED WITH R ARM WEAKNESS. PT CONFUSED, NO ACUTE DISTRESS NOTED, RESP EVEN AND UNLABORED. PLACE PT ON CARDIAC MONITORING, CONTINUOUS POX, O2@2L/NC. ER MD AT BEDSIDE TO EVAL PT WITH ORDERS RECEIVED. WILL CARRY OUT ORDERS.
--- NOTE | 2017-06-24 19:45 | NUR ---
STARTED SL 20G TO LFA, BLOOD DRAWN AND SENT TO LAB.
[2017-06-24 19:55] LABS: BASOPHILS # (AUTO) 0.2 /CMM (0.0-0.2); BASOPHILS % (AUTO) 2.8 % (0.0-2.0); EOSINOPHILS % (AUTO) 0.6 % (0.0-6.0); HEMATOCRIT 39 % (33-45); HEMOGLOBIN 13.4 g/dL (11.5-14.8); LYMPHOCYTES # (AUTO) 1.4 /CMM (0.8-4.8); LYMPHOCYTES % (AUTO) 17.9 % (20.0-44.0); MEAN CORPUSCULAR HEMOGLOBIN 30 PG (26.0-33.0); MEAN CORPUSCULAR HGB CONC 35 g/dl (31.0-36.0); MEAN CORPUSCULAR VOLUME 87 fL (82-100); MONOCYTES # (AUTO) 0.7 /CMM (0.1-1.30); MONOCYTES % (AUTO) 8.7 % (2.0-12.0); NEUTROPHILS # (AUTO) 5.3 /CMM (1.8-8.9); PLATELET COUNT (AUTO) 293 /CMM (150-450); RDW COEFFICIENT OF VARIATION 12.7 (11.5-15.0); RED BLOOD CELL COUNT(AUTO) 4.43 MIL/uL (4.0-5.2); WHITE BLOOD COUNT (AUTO) 7.6 K/uL (4.3-11.0)
[2017-06-24 20:07] LABS: CALCIUM, SERUM 10.8 mg/dL (8.5-10.1); CARBON DIOXIDE 32 mmol/L (21-32); CHLORIDE 103 mmol/L (98-107); CREATININE 0.8 mg/dL (0.6-1.3); GLUCOSE 111 mg/dL (74-106); POTASSIUM 3.3 mmol/L (3.5-5.1); SODIUM SERUM 142 mmol/L (136-145); UREA NITROGEN, BLOOD 23 mg/dL (7-18)
[2017-06-24] MEDS ORDERED: HALOPERIDOL LACTATE INJ 5 MG/ML VIAL ONE (20:07)
[2017-06-24 20:10] LABS: INR 1.01 (0.85-1.15)
[2017-06-24 20:13] LABS: ALANINE AMINOTRANSFERASE 19 U/L (12-78); ALBUMIN 3.4 g/dL (3.4-5.0); ALKALINE PHOSPHATASE 125 U/L (46-116); ASPARTATE AMINOTRANSFERASE 21 U/L (15-37); BILIRUBIN,DIRECT 0.1 mg/dL (0.0-0.2); BILIRUBIN,TOTAL 0.2 mg/dL (0.2-1.0)
[2017-06-24 20:15] LABS: TROPONIN I < 0.017 ng/mL (0.00-0.056)
[2017-06-24] MEDS ORDERED: HALOPERIDOL LACTATE INJ 5 MG/ML VIAL IV ONE (20:30)
--- NOTE | 2017-06-24 20:31 | NUR ---
PT NEEDS MEDS BEFORE CT SCAN, ER WILL CALL.
--- NOTE | 2017-06-24 20:53 | NUR ---
PT TRANSPORTED TO RADIOLOGY FOR CT HEAD.
--- NOTE | 2017-06-24 21:07 | NUR ---
PT BACK FROM RADIOLOGY. PENDING CT HEAD RESULT.
--- NOTE | 2017-06-24 21:34 | NUR ---
FEMALE HULL INSPECTOR AT BEDSIDE TO DO I&O CATH.
--- NOTE | 2017-06-24 21:35 | NUR ---
URINE SAMPLE COLLECTED AND SENT TO LAB.
[2017-06-24 22:01] LABS: APPEARANCE,URINE CLOUDY (CLEAR); BILIRUBIN,URINE NEGATIVE (NEGATIVE); BLOOD, URINE TRACE-INTA Ery/uL (NEGATIVE); COLOR,URINE YELLOW (YELLOW); KETONES,URINE NEGATIVE (NEGATIVE); LEUKOCYTE ESTERASE ,URINE 3+ (NEGATIVE); NITRITE, URINE NEGATIVE (NEGATIVE); PROTEIN,URINE 2+ mg/dl (NEGATIVE); UGLUCOSE NEGATIVE (NEGATIVE)
[2017-06-24 22:24] LABS: PH,URINE >9.0 (5.0-8.0)
[2017-06-24] MEDS ORDERED: PIPERACILLIN /TAZOBACTAM 3.375 G VIAL IV ONE (22:25)
[2017-06-24] MEDS ORDERED: LEVOFLOXACIN 750 MG /D5W 150ML 150 ML IV ONE (22:30)
[2017-06-24] MEDS ORDERED: PIPERACILLIN /TAZOBACTAM 3.375 G in IV D5W 50 ML IV ONE (22:30)
[2017-06-24] MEDS ORDERED: IV NS 0.9% 500 ML BAG IV ONE (22:30)
--- NOTE | 2017-06-24 22:40 | NUR ---
ER TALKING TO DR. FITZPATRICK REGARDING PT ADMISSION. WILL TRANSPORT PT VIA ACLS PROTOCOL.
[2017-06-24 22:44] LABS: RBC,URINE 0-2 /HPF (0-2)
[2017-06-24 22:45] LABS: BACTERIA,URINE Many /HPF (None Seen); SQUAMOUS EPITHELIAL CELL,UR Few /HPF (None Seen); TRIPLE PHOSPHATE CRYSTAL,UR Rare /HPF (None Seen); URINE AMORPHOUS PHOSPHATES Many /HPF (None Seen)
[2017-06-24 23:00] VITALS: BP 148/63
[2017-06-24] MEDS ORDERED: ONDANSETRON HCL/PF 4 MG/2 ML VIAL IVP PRN (23:00)
[2017-06-24] MEDS ORDERED: Z GUARD REMEDY 2 OZ OINT TP PRN ×2 (23:00)
[2017-06-24] MEDS ORDERED: ZOLPIDEM TARTRATE 5 MG TABLET PO PRN (23:00)
[2017-06-24] MEDS ORDERED: MAGNESIUM HYDROXIDE 30 ML UDC PO PRN (23:00)
[2017-06-24] MEDS ORDERED: MAG HYDROX/AL HYDROX/SIMETH 30 ML UDC PO PRN (23:00)
[2017-06-24] MEDS ORDERED: HYDROCODONE/APAP 5/325MG 1 EACH TABLET PO PRN (23:00)
[2017-06-24] MEDS ORDERED: ACETAMINOPHEN 325 MG TABLET PO PRN (23:00)
--- NOTE | 2017-06-24 23:00 | NUR ---
ASSAULT AMPHIBIOUS VEHICLE CREWMAN OPENING NOTES: RECEIVED PT WITH 3 FAMILY MEMBERS AT BEDSIDE. PT IS A/OX1. PT UNABLE TO STATE HER NAME OR HER BIRTHDAY. PT UNCLEAR WHEN SPEAKING. PT APPEARS TO BE LETHARGIC. PT HAS IV ON L AC #20G AND IS TO BE STARTED ON FLUIDS. CALL LIGHT WITHIN PT'S REACH. PT TO BE PLACED ON TELE MONITOR. BED ALARM ACTIVATED. BED KEPT IN LOW, LOCKED POSITION, AND SIDE RAILS X 2UP. WILL CONTINUE TO MONITOR PT.
--- NOTE | 2017-06-24 23:01 | NUR ---
LEVAQUIN 750MG IVPB ENDORSED TO DISPENSING AND MEASURING OPTICIAN RHEA.
[2017-06-24] MEDS: IV NS 0.9% 1,000 ML IV PRN (23:56)
[2017-06-24] MEDS ORDERED: CEFTRIAXONE 1 G VIAL ONE (23:59)
[2017-06-25] MEDS: CEFTRIAXONE 1 G in IV D5W 50 ML IV SCH ×2 (00:13→22:54)
[2017-06-25] MEDS ORDERED: LEVOFLOXACIN 750 MG /D5W 150ML 750 MG in PREMIX 1 EA IV ONE (01:00)
--- NOTE | 2017-06-25 01:04 | NUR ---
MUFFLE OPERATOR NOTES: LEVAQUIN WAS MANUALLY ADMINISTERED. GUN NOT SCANNING MED. CHARGE NURSE OVERRODE MED.
--- NOTE | 2017-06-25 01:30 | NUR ---
CHILDCARE AIDE NOTES: INFORMED NANETTE ABOUT K 3.3 AND WAS NOT REPLACED IN ER ; AWAITING FOR ORDERS.
--- NOTE | 2017-06-25 02:26 | NUR ---
FAST FOOD CASHIER NOTES: NANETTE AWARE OF POTASSIUM LEVEL 3.3 ; NO NEW ORDERS AT THIS TIME .
[2017-06-25 04:00] VITALS: BP 147/59
[2017-06-25 07:27] LABS: BASOPHILS % (AUTO) 0.2 % (0.0-2.0); HEMATOCRIT 36 % (33-45); HEMOGLOBIN 12.3 g/dL (11.5-14.8); LYMPHOCYTES # (AUTO) 0.8 /CMM (0.8-4.8); LYMPHOCYTES % (AUTO) 11.3 % (20.0-44.0); MEAN CORPUSCULAR HEMOGLOBIN 30 PG (26.0-33.0); MEAN CORPUSCULAR HGB CONC 34 g/dl (31.0-36.0); MEAN CORPUSCULAR VOLUME 89 fL (82-100); MONOCYTES # (AUTO) 0.4 /CMM (0.1-1.30); MONOCYTES % (AUTO) 5.8 % (2.0-12.0); NEUTROPHILS # (AUTO) 5.7 /CMM (1.8-8.9); NEUTROPHILS % (AUTO) 82.7 % (43.0-81.0); PLATELET COUNT (AUTO) 260 /CMM (150-450); RDW COEFFICIENT OF VARIATION 13.7 (11.5-15.0); RED BLOOD CELL COUNT(AUTO) 4.04 MIL/uL (4.0-5.2); WHITE BLOOD COUNT (AUTO) 6.8 K/uL (4.3-11.0)
--- NOTE | 2017-06-25 07:30 | NUR ---
BOARD OPERATOR CLOSING NOTES: ALL NEEDS WERE ATTENDED AND ANTICIPATED FOR. PT STILL APPEARS LETHARGIC. MUMBLES WORDS AND WILL OPEN EYES FROM TIME TO TIME. PT UNABLE TO STATE HER NAME OR HER BIRTHDAY. PT UNCLEAR WHEN SPEAKING. PT HAS IV ON L AC #20G AND IS BEING INFUSED WITH NS AT 75ML/HR. CALL LIGHT WITHIN PT'S REACH. TELE BOX SHOW SR WITH OCCASIONAL PVCS. BED ALARM ACTIVATED. BED KEPT IN LOW, LOCKED POSITION, AND SIDE RAILS X 2UP. ENDORSED TO AM NURSE FOR GEORGE.
[2017-06-25 07:35] LABS: RETICULOCYTE COUNT 1.4 % (0.6-2.5)
[2017-06-25 07:44] LABS: INR 1.06 (0.87-1.13)
--- NOTE | 2017-06-25 07:44 | NUR ---
TELE/RN OPENING NOTE PATIENT IN BED IN STABLE CONDITION. A/O X 1, NON VERBAL. NO SIGNS OF ACUTE DISTRESS. NO COMPLAIN OF PAIN OR DISCOMFORT. ON TELE MONITOR WITH SINUS RHYTHM TO SINUS TACHY IN 100'S. ALL NEEDS ATTENDED TO. CALL LIGHT WITHIN REACH. WILL CONTINUE TO MONITOR TO ENSURE SAFETY.
[2017-06-25 07:45] LABS: BILIRUBIN,TOTAL 0.3 mg/dL (0.2-1.0); CALCIUM, SERUM 10.3 mg/dL (8.5-10.1); CREATININE 0.7 mg/dL (0.6-1.3); MAGNESIUM 1.5 mg/dL (1.8-2.4); PHOSPHORUS 3.3 mg/dL (2.5-4.9); POTASSIUM 3.1 mmol/L (3.5-5.1); TOTAL PROTEIN, SERUM 7.6 g/dL (6.4-8.2)
[2017-06-25 07:49] LABS: THYROID STIMULATING HORMONE 1.11 uIU/mL (0.358-3.74)
[2017-06-25 08:00] VITALS: BP 147/59
[2017-06-25] MEDS: DOCUSATE SODIUM 100 MG CAPSULE PO SCH ×2 (09:07→16:23)
[2017-06-25] MEDS: OXYBUTYNIN CHLORIDE 5 MG TABLET PO SCH ×2 (09:07→16:23)
[2017-06-25] MEDS: AMLODIPINE BESYLATE 10 MG TABLET PO SCH (09:07)
[2017-06-25] MEDS: ASPIRIN 81 MG TAB.CHEW PO SCH (09:07)
[2017-06-25] MEDS: PANTOPRAZOLE 40 MG TABLET.DR PO SCH (09:07)
[2017-06-25] MEDS: MEMANTINE HCL 5 MG TABLET PO SCH ×2 (09:07→16:23)
[2017-06-25] MEDS: Magnesium 1GM/D5W 100ML PREMIX 100 ML IV SCH ×2 (10:43→12:04)
[2017-06-25] MEDS: POTASSIUM CHLORIDE 20 MEQ TAB.PRT.SR PO SCH ×2 (10:43→12:05)
--- NOTE | 2017-06-25 14:12 | NUR ---
TEXTED DR. ROBLES FOR MRI APPROVAL.
--- NOTE | 2017-06-25 15:56 | NUR ---
/RN EEG AND MRI NOT DONE UNABLE TO DO EEG OR MRI SECONDARY TO PATIENT HAVE WEAVE ON HER HEAD. Addendum: 06/25/17 at 1557 by CLARKE ASHRAF RN YUDY CHAVEZ.
[2017-06-25 16:00] VITALS: BP 130/72
[2017-06-25] MEDS: BACI/NEOM/POLY B OINT PKT 1 UDPKT PACKET TP SCH (16:23)
--- NOTE | 2017-06-25 18:26 | NUR ---
MS/RN CLOSING NOTE PATIENT IN BED IN STABLE CONDITION. A/O X 1. NO SIGNS OF ACUTE DISTRESS. NO COMPLAIN OF PAIN OR DISCOMFORT. REFUSE DINNER, DAUGHTER AT BEDSIDE, TRIED FEEDING. PATIENT REFUSE SECONDARY TO VERY SLEEPY. ALL NEEDS ATTENDED TO. TRY CALLING MRI AND EEG DEPT, NO REPLY, WANTED TO MAKE AWARE PATIENT IS READY FOR THE PROCEDURE NOW. CALL LIGHT WITHIN REACH. WILL ENDORSE TO NEXT SHIFT FOR CONTINUITY OF CARE.
[2017-06-25 20:00] VITALS: BP 125/74
--- NOTE | 2017-06-25 20:25 | NUR ---
TELERN REMAINS SEDATED, RESPONSES WHEN EYES CHECKED FOR PUPIL REACTION, MUMBLES, REFUSES TO OPEN EYES LAURA RIGHT. BS CHECKED WAS 83. INFORMED DR. FITZPATRICK, NO FURTHER ORDERS RECEIVED EXCEPT TO MONITOR PATIENT CLOSELY, PATIENT EXHIBITS SIGNS OF EARLY ALZHEIMERS. PRESENT IVF CONTINUED. FREQ NEURO CHECKS.
--- NOTE | 2017-06-25 20:35 | NUR ---
TELERN PLACED ON TELE FOR OBSERVATION, ST ON THE MONITOR. TELE REMOVED.
--- NOTE | 2017-06-25 20:58 | NUR ---
TELERN FOUND PATIENT DEEPLY ASLEEP, NO RESPONSE FROM STERNAL RUB, V/S STABLE, NO RESPIRATORY DISTRESS. BP 125/74, HR OF 89, AFEBRILE 98.4, RESPIRATION EVEN 21, 96% ON ROOM AIR. NEED TO MONITOR CLOSELY, ST ON THE MONITOR. PRESENT IVF INFUSING WELL. TO CONTINUE.
[2017-06-25] MEDS: IV NS 0.9% 1,000 ML IV PRN (21:28)
[2017-06-25] MEDS: ATORVASTATIN 10 MG TABLET PO SCH (22:00)
[2017-06-25] MEDS: DONEPEZIL 5 MG TABLET PO SCH (22:00)
--- NOTE | 2017-06-25 23:24 | NUR ---
TELERN BED BATHED, AWAKENED FOR SHORT PERIOD, TRYING TO SIT UP , YAWNING. REPOSITIONED, KEPT COMFORTABLE. WENT BACK TO SLEEP.
[2017-06-26] VITALS: BP 138/74
--- NOTE | 2017-06-26 01:05 | NUR ---
TELERN FULLY AWAKE THIS TIME, ALL UPPER AND LOWER EXTREMITIES MOVING , WEAK, MUMBLES. KEPT PATIENT ON TELE SHOWING SR TO ST ON THE MONITOR. NEEDS CONSTANT OBSERVATION.
[2017-06-26 04:00] VITALS: BP 132/69
--- NOTE | 2017-06-26 06:33 | NUR ---
TELERN REMAINS AWAKE, LIMITED VERBAL. CLOSELY WATCHED
[2017-06-26 07:47] LABS: BASOPHILS % (AUTO) 0.3 % (0.0-2.0); EOSINOPHILS # (AUTO) 0.1 /CMM (0.0-0.7); EOSINOPHILS % (AUTO) 1.3 % (0.0-6.0); HEMATOCRIT 38 % (33-45); HEMOGLOBIN 12.8 g/dL (11.5-14.8); LYMPHOCYTES # (AUTO) 1.3 /CMM (0.8-4.8); LYMPHOCYTES % (AUTO) 25.2 % (20.0-44.0); MEAN CORPUSCULAR HEMOGLOBIN 30 PG (26.0-33.0); MEAN CORPUSCULAR HGB CONC 34 g/dl (31.0-36.0); MEAN CORPUSCULAR VOLUME 89 fL (82-100); MONOCYTES # (AUTO) 0.5 /CMM (0.1-1.30); MONOCYTES % (AUTO) 10.2 % (2.0-12.0); NEUTROPHILS # (AUTO) 3.2 /CMM (1.8-8.9); PLATELET COUNT (AUTO) 251 /CMM (150-450); RDW COEFFICIENT OF VARIATION 13.8 (11.5-15.0); RED BLOOD CELL COUNT(AUTO) 4.22 MIL/uL (4.0-5.2); WHITE BLOOD COUNT (AUTO) 5.1 K/uL (4.3-11.0)
--- NOTE | 2017-06-26 07:49 | NUR ---
MS/RN OPENING NOTE PATIENT IN BED IN STABLE CONDITION. A/O X 1, CONFUSED. NO SIGNS OF ACUTE DISTRESS. NO COMPLAIN OF PAIN OR DISCOMFORT. ALL NEEDS ATTENDED TO. CALL LIGHT WITHIN REACH. WILL CONTINUE TO MONITOR TO ENSURE SAFETY.
[2017-06-26 08:00] VITALS: BP 149/82
[2017-06-26 08:21] LABS: CALCIUM, SERUM 9.6 mg/dL (8.5-10.1); CREATININE 0.8 mg/dL (0.6-1.3); MAGNESIUM 1.8 mg/dL (1.8-2.4); PHOSPHORUS 3.8 mg/dL (2.5-4.9); POTASSIUM 3.3 mmol/L (3.5-5.1)
[2017-06-26] MEDS: DOCUSATE SODIUM 100 MG CAPSULE PO SCH ×2 (08:26→16:29)
[2017-06-26] MEDS: BACI/NEOM/POLY B OINT PKT 1 UDPKT PACKET TP SCH ×2 (08:26→16:30)
[2017-06-26] MEDS: AMLODIPINE BESYLATE 10 MG TABLET PO SCH (08:27)
[2017-06-26] MEDS: ASPIRIN 81 MG TAB.CHEW PO SCH (08:28)
[2017-06-26] MEDS: MEMANTINE HCL 5 MG TABLET PO SCH ×2 (08:28→16:29)
[2017-06-26] MEDS: OXYBUTYNIN CHLORIDE 5 MG TABLET PO SCH ×2 (08:28→16:29)
[2017-06-26] MEDS: PANTOPRAZOLE 40 MG TABLET.DR PO SCH (08:29)
--- NOTE | 2017-06-26 09:37 | NUR ---
MS/RN UNABLE TO DO MRI UNABLE TO DO MRI SECONDARY TO PATIENT HAVING HARD TIME TO STAY STILL. PRESSURE DISPATCHER JARROD INFORMED WITH NO ORDERS AT THIS TIME. DAUGHTER ROMMEL AWARE.
[2017-06-26] MEDS: POTASSIUM CL. PREMIX PERIPHER. 50 ML IV SCH ×3 (13:00→15:13)
[2017-06-26 16:00] VITALS: BP 97/60
[2017-06-26] MEDS: CEFTRIAXONE 1 G in IV D5W 50 ML IV SCH ×2 (16:29→16:32)
[2017-06-26] MEDS: IV NS 0.9% 1,000 ML IV PRN (16:30)
--- NOTE | 2017-06-26 18:17 | NUR ---
MS/RN CLOSING NOTE PATIENT IN BED IN STABLE CONDITION. A/O X 1. NO SIGNS OF ACUTE DISTRESS. NO COMPLAIN OF PAIN OR DISCOMFORT. ALL NEEDS ATTENDED TO. CALL LIGHT WITHIN REACH. WILL ENDORSE TO NEXT SHIFT FOR CONTINUITY OF CARE.
--- NOTE | 2017-06-26 19:00 | NUR ---
MS RN OPENING RECEIVE PATIENT IN BED AWAKE A/O X 1, COMFORTABLE, STABLE CONDITION. NO C/O PAIN, NO DISTRESS NOTED, SAFETY MEASURES IN PLACE. CALL LIGHT IN REACH. WILL MONITOR.
[2017-06-26 20:00] VITALS: BP 135/59
[2017-06-26] MEDS: DONEPEZIL 5 MG TABLET PO SCH (21:03)
[2017-06-26] MEDS: ATORVASTATIN 10 MG TABLET PO SCH (21:06)
[2017-06-27] MEDS: IV NS 0.9% 1,000 ML IV PRN ×2 (05:43→22:01)
--- NOTE | 2017-06-27 06:27 | NUR ---
MS RN CLOSING NOTES PT COMFORTABLY ASLEEP AND EASILY AWAKEN, TOLERATING ROOM AIR 98% IN STABLE CONDITION. RESPIRATION EVEN AND UNLABORED. KEPT CLEAN AND DRY AND COMFORTABLE, ALL NURSING CARE RENDERED. NEEDS ATTENDED AND ANTICIPATED, GOOD SKIN CARE PROVIDED. FREQUENT VISUAL CHECK DONE FOR SAFETY EVERY 2 HOURS. ON LOW BED AT ALL TIMES TO ENSURE SAFETY. SAFE HAZARD FREE ENVIRONMENT PROVIDED. NO COMPLAINS OF PAIN. CALL LIGHT WITHIN EASY TO REACH. WILL ENDORSE NEXT SHIFT CONTINUITY OF CARE.
--- NOTE | 2017-06-27 07:30 | NUR ---
RN NOTES PT COMFORTABLY ASLEEP AND EASILY AWAKEN, HOWEVER IS DISORIENTED. TOLERATING ROOM AIR 98% IN STABLE CONDITION. RESPIRATION EVEN AND UNLABORED. KEPT CLEAN AND DRY AND COMFORTABLE, NO COMPLAINS OF PAIN. CALL LIGHT WITHIN EASY TO REACH. WILL CONTINUE TO MONITOR
[2017-06-27 08:00] VITALS: BP 160/70
[2017-06-27 08:03] LABS: BASOPHILS % (AUTO) 0.6 % (0.0-2.0); EOSINOPHILS # (AUTO) 0.1 /CMM (0.0-0.7); EOSINOPHILS % (AUTO) 1.9 % (0.0-6.0); HEMATOCRIT 36 % (33-45); HEMOGLOBIN 12.4 g/dL (11.5-14.8); MEAN CORPUSCULAR HEMOGLOBIN 31 PG (26.0-33.0); MEAN CORPUSCULAR HGB CONC 35 g/dl (31.0-36.0); MEAN CORPUSCULAR VOLUME 89 fL (82-100); MONOCYTES # (AUTO) 0.4 /CMM (0.1-1.30); MONOCYTES % (AUTO) 7.7 % (2.0-12.0); NEUTROPHILS # (AUTO) 3.6 /CMM (1.8-8.9); NEUTROPHILS % (AUTO) 69.8 % (43.0-81.0); PLATELET COUNT (AUTO) 252 /CMM (150-450); RDW COEFFICIENT OF VARIATION 13.8 (11.5-15.0); RED BLOOD CELL COUNT(AUTO) 4.05 MIL/uL (4.0-5.2); WHITE BLOOD COUNT (AUTO) 5.1 K/uL (4.3-11.0)
[2017-06-27] MEDS: PANTOPRAZOLE 40 MG TABLET.DR PO SCH (08:49)
[2017-06-27] MEDS: OXYBUTYNIN CHLORIDE 5 MG TABLET PO SCH ×2 (08:50→17:02)
[2017-06-27] MEDS: MEMANTINE HCL 5 MG TABLET PO SCH ×2 (08:50→17:02)
[2017-06-27] MEDS: ASPIRIN 81 MG TAB.CHEW PO SCH (08:50)
[2017-06-27] MEDS: AMLODIPINE BESYLATE 10 MG TABLET PO SCH (08:51)
[2017-06-27] MEDS: DOCUSATE SODIUM 100 MG CAPSULE PO SCH ×2 (09:00→16:57)
[2017-06-27] MEDS: BACI/NEOM/POLY B OINT PKT 1 UDPKT PACKET TP SCH ×2 (09:00→17:05)
--- NOTE | 2017-06-27 09:30 | NUR ---
0900 COLACE WAS HELD DUE TO PATIENT'S INABILITY TO SWALLOW MEDICATIONS WHOLE. CURRENTLY ON PUREE DIET. AWARE.
[2017-06-27 11:18] LABS: CALCIUM, SERUM 9.8 mg/dL (8.5-10.1); CREATININE 0.7 mg/dL (0.6-1.3); MAGNESIUM 1.6 mg/dL (1.8-2.4); PHOSPHORUS 3.9 mg/dL (2.5-4.9); POTASSIUM 3.5 mmol/L (3.5-5.1)
[2017-06-27] MEDS ORDERED: FEE PK DOSING 1 MIN EA MC ONE (12:09)
[2017-06-27] MEDS ORDERED: GENTAMICIN 280 MG in IV D5W 100 ML IV SCH ×2 (13:00→15:30)
[2017-06-27] MEDS ORDERED: CEFAZOLIN 2 GM in IV D5W 50 ML IV SCH (13:00)
[2017-06-27] MEDS ORDERED: CEFA1VIA19 IV (15:14)
[2017-06-27 16:00] VITALS: BP_SYST 137; BP_DIAS 48; BP_DIAS 80
[2017-06-27] MEDS: Magnesium 1GM/D5W 100ML PREMIX 100 ML IV SCH (17:02)
--- NOTE | 2017-06-27 18:30 | NUR ---
RN NOTES CALLED DAUGHTER PT WITH DC ORDERS, DAUGHTER STATING "I DONT WANT HER TO GO BACK THE NURSE PRACTITIONER WAS SUPPOSED TO CALL ME, I DONT KNOW WHAT IS GOING ON" EXPLAINED DC PROCESS, PICTURES TAKEN, PAPER COMPLETED CASE MANAGEMENT MADE AWARE, WILL REFER PT TO OTHER FACILITY, TRANSPORT CANCELLED FAMILY AWARE WILL ENDORSE TO ONCOMING SHIFT
--- NOTE | 2017-06-27 19:30 | NUR ---
RN CLOSING NOTES PT ASLEEP COMFORTABLY IN BED. IN STABLE CONDITION. RESPIRATION EVEN AND UNLABORED. KEPT CLEAN AND DRY AND COMFORTABLE, ALL NURSING CARE RENDERED. NEEDS ATTENDED AND ANTICIPATED, GOOD SKIN CARE PROVIDED. FREQUENT VISUAL CHECK DONE FOR SAFETY EVERY 2 HOURS. ON LOW BED AT ALL TIMES TO ENSURE SAFETY. SAFE HAZARD FREE ENVIRONMENT PROVIDED. NO COMPLAINS OF PAIN. CALL LIGHT WITHIN EASY TO REACH. WILL ENDORSE NEXT SHIFT CONTINUITY OF CARE
--- NOTE | 2017-06-27 19:31 | NUR ---
RN OPEN NOTES RECEIVED PATIENT AWAKE IN BED WITH FAMILY AT BEDSIDE. A/O X1. NO SIGNS OF DISTRESS OR DISCOMFORT. BREATHING EVEN AND UNLABORED. IV ACCESS IN LAC WITH NS INFUSING, PATENT AND INTACT, NO SIGNS OF REDNESS OR INFILTRATION. BED IN LOW LOCKED POSITION WITH SIDE RAILS X3. CALL LIGHT WITHIN REACH. WILL CONTINUE TO MONITOR.
[2017-06-27 20:00] VITALS: BP 141/78
[2017-06-27] MEDS: CEFAZOLIN 2 GM in IV D5W 50 ML IV SCH (21:00)
[2017-06-27] MEDS: DONEPEZIL 5 MG TABLET PO SCH (22:01)
[2017-06-27] MEDS: ATORVASTATIN 10 MG TABLET PO SCH (22:01)
[2017-06-28] MEDS: CEFAZOLIN 2 GM in IV D5W 50 ML IV SCH ×2 (04:18→14:55)
[2017-06-28] MEDS ORDERED: Magnesium 1GM/D5W 100ML PREMIX 100 ML IV ONE (04:36)
[2017-06-28] MEDS: Magnesium 1GM/D5W 100ML PREMIX 100 ML IV SCH (04:50)
--- NOTE | 2017-06-28 06:27 | NUR ---
RN CLOSING NOTES PATIENT AWAKE IN BED. A/O X1. NO SIGNS OF DISTRESS OR DISCOMFORT. BREATHING EVEN AND UNLABORED. IV ACCESS IN LAC WITH NS INFUSING, PATENT AND INTACT, NO SIGNS OF REDNESS OR INFILTRATION. ALL NEEDS MET. NO SIGNIFICANT CHANGES THROUGH THE NIGHT. PATIENT KEPT CLEAN DRY AND COMFORTABLE. REPOSITIONED Q2H AND PRN. BED IN LOW LOCKED POSITION WITH SIDE RAILS X3. CALL LIGHT WITHIN REACH. WILL ENDORSE TO AM SHIFT FOR GEORGE.
[2017-06-28] MEDS: PANTOPRAZOLE 40 MG TABLET.DR PO SCH (07:30)
[2017-06-28 07:33] LABS: CALCIUM, SERUM 9.9 mg/dL (8.5-10.1); CREATININE 0.7 mg/dL (0.6-1.3)
--- NOTE | 2017-06-28 07:40 | NUR ---
MS RN OPENING NOTE ALERT AND ORIENTED x1. NO FACIAL GRIMACING NOTED FOR PAIN. NO SOB OR DISTRESS NOTED. CALL LIGHT WITHIN REACH. AWAITING DISCHARGE PLANNING. PER DTR WOULD LIKE MRI BRAIN DONE BEFORE DISCHARGE. IV INTACT AND PATENT NO REDNESS OR SWELLING, IV FLUIDS RUNNING AT THIS TIME TOLERATING WELL. WILL CONTINUE TO MONITOR THROUGHOUT SHIFT
[2017-06-28 08:00] VITALS: BP 186/75
--- NOTE | 2017-06-28 08:30 | NUR ---
MS RN NOTE PATIENT IS POCKETING FOOD AT THIS TIME. ALL MEDICATIONS HELD OF RIGHT NOW. WILL CONTINUE TO MONITOR
[2017-06-28] MEDS: AMLODIPINE BESYLATE 10 MG TABLET PO SCH (08:56)
[2017-06-28] MEDS: OXYBUTYNIN CHLORIDE 5 MG TABLET PO SCH ×2 (08:56→17:11)
[2017-06-28] MEDS: DOCUSATE SODIUM 100 MG CAPSULE PO SCH ×2 (08:56→17:11)
[2017-06-28] MEDS: ASPIRIN 81 MG TAB.CHEW PO SCH (08:56)
[2017-06-28] MEDS: MEMANTINE HCL 5 MG TABLET PO SCH ×2 (08:56→17:11)
[2017-06-28] MEDS: BACI/NEOM/POLY B OINT PKT 1 UDPKT PACKET TP SCH ×2 (08:57→17:00)
[2017-06-28] MEDS: POTASSIUM CHLORIDE 20 MEQ TAB.PRT.SR PO SCH ×3 (11:14→13:43)
[2017-06-28 16:00] VITALS: BP 164/81
[2017-06-28] MEDS: IV NS 0.9% 1,000 ML IV PRN (17:11)
--- NOTE | 2017-06-28 18:36 | NUR ---
MS RN CLOSING NOTE NO NEW CHANGES IN CONDITION. NO PAIN AT THIS TIME. NO SOB OR DISTRESS NOTED. ALL DUE MEDICATIONS GIVEN ORDERED. ALL NURSING CARE NEEDS ATTENDED TO. IV INTACT AND PATENT NO REDNESS OR SWELLING NOTED. IV INTACT AND PATENT, IV FLUIDS RUNNING AT THIS TIME TOLERATING WELL AT 75 ML/HR. POSSIBLE DISCHARGE TO GPS. WILL ENDORSE TO BIKE MECHANIC NURSE FOR GEORGE
--- NOTE | 2017-06-28 20:15 | NUR ---
D/C'D PATIENT TO GPS, TRANSFERRED PATIENT WITH ASSISTANCE OF 4 STAFF, V/S STABLE, PATIENT TOLERATED WELL. REPORTS AND PAPER WORKS PASSED TO THE CHARGE NURSE AND QUENTIN (ADMITTING NURSE).
[2017-06-28] MEDS ORDERED: ASPI-1169 PO (20:59)
[2017-06-28] MEDS ORDERED: OXYB5TAB11 PO (20:59)
[2017-06-28] MEDS ORDERED: DOCU100C36 PO (20:59)
[2017-06-28] MEDS ORDERED: MEMA10TA PO (20:59)
[2017-06-28] MEDS ORDERED: HYDR12.5 PO (20:59)
[2017-06-28] MEDS ORDERED: ATOR10TA PO (20:59)
[2017-06-28] MEDS ORDERED: ALLA266C2 TP (20:59)
[2017-06-28] MEDS ORDERED: AMLO10TA2 PO (20:59)
[2017-06-28] MEDS ORDERED: PANT40TA4 PO (20:59)
[2017-06-28] MEDS ORDERED: DONE10TA44 PO (20:59)
[2017-06-28] MEDS ORDERED: DIVALPROEX SODIUM 125 MG CAP.SPRINK PO SCH (21:00)
== END 2017-06-28 20:25 | DRG 689 ==
LOC: ER 19:28 → TELE 21:49 → MED 06-25 09:11 → TELE 06-26 01:15 → MED 06-26 06:33
PROVIDERS: ADMIT Internal Medicine; ATTEND Internal Medicine
DX: N39.0 Urinary tract infection, site not specified (principal); G93.41 Metabolic encephalopathy; R56.9 Unspecified convulsions; G30.9 Alzheimer's disease, unspecified; E44.1 Mild protein-calorie malnutrition; F25.0 Schizoaffective disorder, bipolar type; F02.80 Dementia in other diseases classified elsewhere, unspecified severity, without behavioral disturbance, psychotic disturbance, mood disturbance, and anxiety; W18.30XA Fall on same level, unspecified, initial encounter; E78.5 Hyperlipidemia, unspecified; I10 Essential (primary) hypertension; F29 Unspecified psychosis not due to a substance or known physiological condition; Z88.8 Allergy status to other drugs, medicaments and biological substances; Z79.82 Long term (current) use of aspirin; Z79.899 Other long term (current) drug therapy; D32.9 Benign neoplasm of meninges, unspecified; M21.331 Wrist drop, right wrist; Z90.710 Acquired absence of both cervix and uterus; Z87.891 Personal history of nicotine dependence; Y92.002 Bathroom of unspecified non-institutional (private) residence as the place of occurrence of the external cause
CPT/HCPCS: 36415; 70450-TC; 70551-TC; 71045-TC; 71046; 73130-TC; 80048-TC; 80053-TC; 80061-TC; 80076-TC; 81000-TC; 82962-TC; 83605-TC; 83735-TC; 83880; 84100-TC; 84443-TC; 84484-TC; 85025-TC; 85045-TC; 85610-TC; 85652-TC; 85730-TC; 87040-TC; 87081-TC; 87086-TC; 87186-TC; 92526; 92611-TC; 93307-TC; 95819-TC; 97110-TC; 97530-TC; A4216; A4606; J0690; J0696; J1580; J1630; J1956; J2543; J3475; J3480; J7030; J7040; J7060; Z7610

== ENCOUNTER 2017-06-28 19:58 | Inpatient (IN) | payer MEDICARE, OTHER ==
[~2017-06-28] VITALS: Ht 152.4 cm; Wt 65.8 kg
[~2017-06-28 19:58] MED LIST changes: +CEFA1VIA19 IV; -LEVO500T90 PO
--- NOTE | 2017-06-28 20:22 | NUR ---
ADMITTED FROM [facility]/MED-SURG FLOOR ON 5150 HOLD FOR GD, PATIENT CONFUSED, HX: DEMENTIA. PLACED PATIENT COMFORTABLY IN BED, NO ACUTE DISTRESS NOTED. SHOWS NO S/S OF PAIN. SPOKE TO THE DAUGHTER AT THE BEDSIDE, SHE IS REQUESTING NOT TO ADMINISTER ANY PSYCH MEDS UNLESS SHE DISCUSS IT FIRST WITH DR. OROZCO. WILL NOTIFY DR. OROZCO IN AM. SHE ALSO SAID THAT IF PATIENT IS NOT SLEEPING, SHE CAN BE GIVEN A SLEEPING PILL. SKIN IS INTACT, BRUISES NOTED ON THE RIGHT ARM. PATIENT IS UNDER THE PSYCHIATRIC CARE OF DR. OROZCO AND UNDER THE MEDICAL CARE OF DR. FITZPATRICK. BELONGINGS WERE INVENTORIED AND CHECKED FOR CONTRABAND. DAUGHTER MAXWELL REFUSED FLU AND PNEUMONIA VACCINE FOR HER MOTHER. SKIN ASSESSMENT DONE. PATIENT IS A FULL CODE PER MAXWELL, DAUGHTER AND POA. WILL CALL DR. FITZPATRICK FOR MED RECON AND ADDITIONAL ORDERS. BED LOCKED ON PLACED LOWEST POSITON. WILL CONTINUE TO MONITOR Q 15 MINS. TO MAINTAIN SAFETY.
[2017-06-28] MEDS ORDERED: ACETAMINOPHEN 325 MG TABLET PO PRN (20:30)
[2017-06-28] MEDS ORDERED: MAGNESIUM HYDROXIDE 30 ML UDC PO PRN (20:30)
[2017-06-28] MEDS ORDERED: MAG HYDROX/AL HYDROX/SIMETH 30 ML UDC PO PRN (20:30)
[2017-06-28] MEDS ORDERED: HYDR12.5 PO (20:59)
[2017-06-28] MEDS ORDERED: DONE10TA44 PO (20:59)
[2017-06-28] MEDS ORDERED: ATOR10TA PO (20:59)
[2017-06-28] MEDS ORDERED: DOCU100C36 PO (20:59)
[2017-06-28] MEDS ORDERED: MEMA10TA PO (20:59)
[2017-06-28] MEDS ORDERED: ALLA266C2 TP (20:59)
[2017-06-28] MEDS ORDERED: ASPI-1169 PO (20:59)
[2017-06-28] MEDS ORDERED: AMLO10TA2 PO (20:59)
[2017-06-28] MEDS ORDERED: OXYB5TAB11 PO (20:59)
[2017-06-28] MEDS ORDERED: PANT40TA4 PO (20:59)
--- NOTE | 2017-06-28 21:37 | NUR ---
CALLED AND SPOKE TO DR. FITZPATRICK ABOUT PATIENT'S , MEDICATION RECONCILIATION.
[2017-06-29 07:21] LABS: BASOPHILS % (AUTO) 0.4 % (0.0-2.0); EOSINOPHILS % (AUTO) 0.9 % (0.0-6.0); HEMATOCRIT 39 % (33-45); HEMOGLOBIN 13.4 g/dL (11.5-14.8); LYMPHOCYTES % (AUTO) 21.5 % (20.0-44.0); MEAN CORPUSCULAR HEMOGLOBIN 31 PG (26.0-33.0); MEAN CORPUSCULAR HGB CONC 35 g/dl (31.0-36.0); MEAN CORPUSCULAR VOLUME 88 fL (82-100); MONOCYTES # (AUTO) 0.3 /CMM (0.1-1.30); MONOCYTES % (AUTO) 6.9 % (2.0-12.0); NEUTROPHILS # (AUTO) 3.2 /CMM (1.8-8.9); NEUTROPHILS % (AUTO) 70.3 % (43.0-81.0); PLATELET COUNT (AUTO) 267 /CMM (150-450); RDW COEFFICIENT OF VARIATION 13.6 (11.5-15.0); WHITE BLOOD COUNT (AUTO) 4.5 K/uL (4.3-11.0)
[2017-06-29 07:41] LABS: BILIRUBIN,TOTAL 0.3 mg/dL (0.2-1.0); CALCIUM, SERUM 10.7 mg/dL (8.5-10.1); CREATININE 0.8 mg/dL (0.6-1.3); POTASSIUM 3.4 mmol/L (3.5-5.1); TOTAL PROTEIN, SERUM 7.6 g/dL (6.4-8.2)
[2017-06-29 07:44] LABS: CHOLESTEROL 158 mg/dL (<200); HDL CHOLESTEROL 64 mg/dL (40-60); LDL 97 mg/dL (0-99); TRIGLYCERIDES 46 mg/dL (30-150)
[2017-06-29 08:00] VITALS: BP 152/66
[2017-06-29] MEDS ORDERED: POTASSIUM CHLORIDE 20 MEQ TAB.PRT.SR PO ONE (10:00)
[2017-06-29] MEDS ORDERED: ACETAMINOPHEN 325 MG TABLET PO PRN (11:00)
[2017-06-29] MEDS ORDERED: Z GUARD REMEDY 2 OZ OINT TP PRN (11:00)
[2017-06-29] MEDS ORDERED: ONDANSETRON 4 MG TAB.RAPDIS PO PRN (11:30)
[2017-06-29] MEDS: LEVOFLOXACIN (500MG) 500 MG TABLET PO SCH (11:43)
[2017-06-29 16:06] VITALS: BP 150/81
[2017-06-29] MEDS ORDERED: DIVALPROEX SODIUM 250 MG TABLET.DR PO SCH (17:00)
[2017-06-29] MEDS: OXYBUTYNIN CHLORIDE 5 MG TABLET PO SCH (17:18)
[2017-06-29] MEDS: DOCUSATE SODIUM 100 MG CAPSULE PO SCH (17:18)
[2017-06-29] MEDS: MEMANTINE HCL 5 MG TABLET PO SCH (17:19)
[2017-06-29 19:52] VITALS: BP 136/70
[2017-06-29] MEDS: ATORVASTATIN 10 MG TABLET PO SCH (21:29)
[2017-06-29] MEDS: DONEPEZIL 5 MG TABLET PO SCH (21:29)
[2017-06-30 08:00] VITALS: BP 150/82
[2017-06-30] MEDS: DOCUSATE SODIUM 100 MG CAPSULE PO SCH ×2 (08:55→17:47)
[2017-06-30] MEDS: AMLODIPINE BESYLATE 10 MG TABLET PO SCH (08:55)
[2017-06-30] MEDS: PANTOPRAZOLE 40 MG TABLET.DR PO SCH (08:56)
[2017-06-30] MEDS: MEMANTINE HCL 5 MG TABLET PO SCH ×2 (08:56→17:47)
[2017-06-30] MEDS: ASPIRIN 81 MG TAB.CHEW PO SCH (08:56)
[2017-06-30] MEDS: DIVALPROEX SODIUM 125 MG TABLET.DR PO SCH ×2 (08:56→17:47)
[2017-06-30] MEDS: OXYBUTYNIN CHLORIDE 5 MG TABLET PO SCH ×2 (08:56→17:47)
[2017-06-30] MEDS: LEVOFLOXACIN (500MG) 500 MG TABLET PO SCH (11:56)
[2017-06-30 16:00] VITALS: BP 122/61
[2017-06-30 20:12] VITALS: BP 135/73
[2017-06-30] MEDS: ATORVASTATIN 10 MG TABLET PO SCH (21:51)
[2017-06-30] MEDS: DONEPEZIL 5 MG TABLET PO SCH (21:53)
[2017-07-01 08:00] VITALS: BP 124/80
[2017-07-01] MEDS: ASPIRIN 81 MG TAB.CHEW PO SCH (08:25)
[2017-07-01] MEDS: PANTOPRAZOLE 40 MG TABLET.DR PO SCH (08:25)
[2017-07-01] MEDS: OXYBUTYNIN CHLORIDE 5 MG TABLET PO SCH ×2 (08:25→16:58)
[2017-07-01] MEDS: DOCUSATE SODIUM 100 MG CAPSULE PO SCH ×2 (08:25→16:58)
[2017-07-01] MEDS: MEMANTINE HCL 5 MG TABLET PO SCH ×2 (08:26→16:58)
[2017-07-01] MEDS: DIVALPROEX SODIUM 125 MG TABLET.DR PO SCH ×2 (08:26→16:58)
[2017-07-01] MEDS: AMLODIPINE BESYLATE 10 MG TABLET PO SCH (08:26)
[2017-07-01] MEDS: LEVOFLOXACIN (500MG) 500 MG TABLET PO SCH (11:10)
[2017-07-01] MEDS: risperiDONE 0.25 MG TABLET PO SCH ×2 (12:12→16:58)
[2017-07-01] MEDS: BENZTROPINE MESYLATE (1 MG) 1 MG TABLET PO SCH ×2 (12:12→16:58)
--- NOTE | 2017-07-01 12:47 | NUR ---
Initial Discharge Note: Patient came from a SNF [facility], [address] [place] [address] / fax number [phone]. HUEY called and spoke with patient's daughter and TAMIKO Krishnamurthyisha Desire, . Kari stated that patient will not be returning to SNF and that she wants patient home. Kari asked SW if she will be able to arrange for a hospital bed and wheelchair for patient for home. HUEY spoke with case making machine operator Chante who stated that case management had already started that process when patient was on the medical floor. SW to follow up and facilitate safe and proper discharge.
[2017-07-01 16:00] VITALS: BP 121/70
[2017-07-01 20:05] VITALS: BP 144/80
[2017-07-01] MEDS: ATORVASTATIN 10 MG TABLET PO SCH (21:15)
[2017-07-01] MEDS: DONEPEZIL 5 MG TABLET PO SCH (21:16)
[2017-07-02] MEDS: risperiDONE 0.25 MG TABLET PO SCH ×3 (09:17→17:00)
[2017-07-02] MEDS: ASPIRIN 81 MG TAB.CHEW PO SCH (09:17)
[2017-07-02] MEDS: AMLODIPINE BESYLATE 10 MG TABLET PO SCH (09:17)
[2017-07-02] MEDS: DOCUSATE SODIUM 100 MG CAPSULE PO SCH ×2 (09:17→17:59)
[2017-07-02] MEDS: PANTOPRAZOLE 40 MG TABLET.DR PO SCH (09:18)
[2017-07-02] MEDS: MEMANTINE HCL 5 MG TABLET PO SCH ×2 (09:18→17:59)
[2017-07-02] MEDS: DIVALPROEX SODIUM 125 MG TABLET.DR PO SCH ×2 (09:18→17:59)
[2017-07-02] MEDS: BENZTROPINE MESYLATE (1 MG) 1 MG TABLET PO SCH ×3 (09:18→17:59)
[2017-07-02] MEDS: OXYBUTYNIN CHLORIDE 5 MG TABLET PO SCH ×2 (09:19→17:59)
[2017-07-02] MEDS: LEVOFLOXACIN (500MG) 500 MG TABLET PO SCH (11:00)
[2017-07-02 11:31] VITALS: BP 148/71
--- NOTE | 2017-07-02 11:52 | NUR ---
Discharge Planning: SW called patient's daughter and TAMIKO Krishnamurthyishsaleem Phipps, . However, she did not answer the call and her voicemail box was full. HUEY was unable to leave a message. SW to try back at a later time.
--- NOTE | 2017-07-02 14:14 | NUR ---
Discharge Planning: HUEY spoke with patient's daughter and DPNELDA Kari Phipps, . HUEY explained that medicare will likely not cover 24-hour care and that SW wanted patient to understand that patient may not get 24-hour care. Kari expressed her concern and frustration, stating that her mother is terminally ill and needs care and that she does not understand why the doctor can't write a letter saying as such. SW to follow up with her chief maintenance supervisor and with the attending psychiatrist and medical doctor.
[2017-07-02 16:00] VITALS: BP 146/60
[2017-07-02 21:01] VITALS: BP 146/78
[2017-07-02] MEDS: DONEPEZIL 5 MG TABLET PO SCH (21:34)
[2017-07-02] MEDS: ATORVASTATIN 10 MG TABLET PO SCH (21:34)
[2017-07-03] MEDS: DIVALPROEX SODIUM 125 MG TABLET.DR PO SCH ×2 (08:22→16:50)
[2017-07-03] MEDS: MEMANTINE HCL 5 MG TABLET PO SCH ×2 (08:23→16:50)
[2017-07-03] MEDS: OXYBUTYNIN CHLORIDE 5 MG TABLET PO SCH ×2 (08:23→16:50)
[2017-07-03] MEDS: PANTOPRAZOLE 40 MG TABLET.DR PO SCH (08:23)
[2017-07-03] MEDS: risperiDONE 0.25 MG TABLET PO SCH ×3 (08:23→16:50)
[2017-07-03] MEDS: DOCUSATE SODIUM 100 MG CAPSULE PO SCH ×2 (08:23→16:50)
[2017-07-03] MEDS: BENZTROPINE MESYLATE (1 MG) 1 MG TABLET PO SCH ×3 (08:23→16:50)
[2017-07-03] MEDS: ASPIRIN 81 MG TAB.CHEW PO SCH (08:23)
[2017-07-03] MEDS: AMLODIPINE BESYLATE 10 MG TABLET PO SCH (08:23)
[2017-07-03 08:30] VITALS: BP 118/78
[2017-07-03] MEDS: LEVOFLOXACIN (500MG) 500 MG TABLET PO SCH (10:47)
--- NOTE | 2017-07-03 14:13 | NUR ---
Discharge Planning: Please note that on 07/02/17, HUEY faxed the requested for medical equipment [hospital bed, wheelchair, and walker] to be delivered to patient's daughter's house. HUEY faxed the request to Keira from [facility] supplies: [phone] / fax #[phone]. Today, HUEY contacted Keira and Keira stated that the progress note from medical doctor needs to include that there is a need for hospital bed. HUEY informed patient's medical doctor, Dr. Ivory of this.
--- NOTE | 2017-07-03 14:48 | NUR ---
Discharge Planning: HUEY spoke with patient's daughter and TAMIKO Kari Phipps, and informed her that the medical equipment should be arriving on Friday. Kari thanked HUEY. HUEY then discussed the caregiving hours that Kari was inquiring about. HUEY explained that the psychiatrist stated that she could make a note stating that patient needs the maximum hours of caregiving and that the medical doctor could possibly do a home health order as well, as they see fit. Kari stated that it was fine and that it was what she was wanting in the first place. HUEY stated that the discharge is set for Friday or Friday of next week, depending on the arrival of the medical equipment that was ordered by HUEY.
[2017-07-03 16:47] VITALS: BP 136/70
[2017-07-03 20:00] VITALS: BP 142/73
[2017-07-03] MEDS: ATORVASTATIN 10 MG TABLET PO SCH (21:29)
[2017-07-03] MEDS: DONEPEZIL 5 MG TABLET PO SCH (21:29)
[2017-07-04 08:00] VITALS: BP 154/69
[2017-07-04] MEDS: ASPIRIN 81 MG TAB.CHEW PO SCH (08:46)
[2017-07-04] MEDS: DIVALPROEX SODIUM 125 MG TABLET.DR PO SCH ×2 (08:47→16:59)
[2017-07-04] MEDS: AMLODIPINE BESYLATE 10 MG TABLET PO SCH (08:47)
[2017-07-04] MEDS: BENZTROPINE MESYLATE (1 MG) 1 MG TABLET PO SCH ×3 (08:47→16:59)
[2017-07-04] MEDS: MEMANTINE HCL 5 MG TABLET PO SCH ×2 (08:47→16:59)
[2017-07-04] MEDS: risperiDONE 0.25 MG TABLET PO SCH ×3 (08:47→16:59)
[2017-07-04] MEDS: DOCUSATE SODIUM 100 MG CAPSULE PO SCH ×2 (08:47→16:59)
[2017-07-04] MEDS: OXYBUTYNIN CHLORIDE 5 MG TABLET PO SCH ×2 (08:47→16:59)
[2017-07-04] MEDS: PANTOPRAZOLE 40 MG TABLET.DR PO SCH (08:47)
[2017-07-04 15:43] VITALS: BP 122/90
[2017-07-04 20:00] VITALS: BP 133/73
[2017-07-04] MEDS: DONEPEZIL 5 MG TABLET PO SCH (21:45)
[2017-07-04] MEDS: ATORVASTATIN 10 MG TABLET PO SCH (21:45)
[2017-07-05 08:37] VITALS: BP 105/57
[2017-07-05] MEDS: OXYBUTYNIN CHLORIDE 5 MG TABLET PO SCH ×2 (08:41→17:31)
[2017-07-05] MEDS: DOCUSATE SODIUM 100 MG CAPSULE PO SCH ×2 (08:41→17:31)
[2017-07-05] MEDS: ASPIRIN 81 MG TAB.CHEW PO SCH (08:41)
[2017-07-05] MEDS: DIVALPROEX SODIUM 125 MG TABLET.DR PO SCH ×2 (08:41→17:31)
[2017-07-05] MEDS: risperiDONE 0.25 MG TABLET PO SCH ×3 (08:41→17:31)
[2017-07-05] MEDS: MEMANTINE HCL 5 MG TABLET PO SCH ×2 (08:41→17:31)
[2017-07-05] MEDS: PANTOPRAZOLE 40 MG TABLET.DR PO SCH (08:41)
[2017-07-05] MEDS: BENZTROPINE MESYLATE (1 MG) 1 MG TABLET PO SCH ×3 (08:42→17:30)
[2017-07-05] MEDS: AMLODIPINE BESYLATE 10 MG TABLET PO SCH (08:42)
[2017-07-05 20:00] VITALS: BP 119/68
[2017-07-05] MEDS: DONEPEZIL 5 MG TABLET PO SCH (21:52)
[2017-07-05] MEDS: ATORVASTATIN 10 MG TABLET PO SCH (21:52)
[2017-07-06 08:00] VITALS: BP 126/62
[2017-07-06] MEDS: MEMANTINE HCL 5 MG TABLET PO SCH ×2 (08:25→16:32)
[2017-07-06] MEDS: DIVALPROEX SODIUM 125 MG TABLET.DR PO SCH ×2 (08:25→16:31)
[2017-07-06] MEDS: risperiDONE 0.25 MG TABLET PO SCH ×3 (08:25→16:32)
[2017-07-06] MEDS: AMLODIPINE BESYLATE 10 MG TABLET PO SCH (08:26)
[2017-07-06] MEDS: OXYBUTYNIN CHLORIDE 5 MG TABLET PO SCH ×2 (08:26→16:32)
[2017-07-06] MEDS: BENZTROPINE MESYLATE (1 MG) 1 MG TABLET PO SCH ×3 (08:26→16:31)
[2017-07-06] MEDS: PANTOPRAZOLE 40 MG TABLET.DR PO SCH (08:26)
[2017-07-06] MEDS: ASPIRIN 81 MG TAB.CHEW PO SCH (08:26)
[2017-07-06] MEDS: DOCUSATE SODIUM 100 MG CAPSULE PO SCH ×2 (08:26→16:32)
[2017-07-06 16:00] VITALS: BP 134/73
[2017-07-06 20:09] VITALS: BP 159/97
[2017-07-06] MEDS: ATORVASTATIN 10 MG TABLET PO SCH (21:39)
[2017-07-06] MEDS: DONEPEZIL 5 MG TABLET PO SCH (21:39)
[2017-07-07 08:00] VITALS: BP 150/90
[2017-07-07] MEDS: risperiDONE 0.25 MG TABLET PO SCH ×3 (08:20→16:50)
[2017-07-07] MEDS: DOCUSATE SODIUM 100 MG CAPSULE PO SCH ×2 (08:20→16:50)
[2017-07-07] MEDS: DIVALPROEX SODIUM 125 MG TABLET.DR PO SCH ×2 (08:20→16:50)
[2017-07-07] MEDS: PANTOPRAZOLE 40 MG TABLET.DR PO SCH (08:20)
[2017-07-07] MEDS: ASPIRIN 81 MG TAB.CHEW PO SCH (08:20)
[2017-07-07] MEDS: AMLODIPINE BESYLATE 10 MG TABLET PO SCH (08:20)
[2017-07-07] MEDS: MEMANTINE HCL 5 MG TABLET PO SCH ×2 (08:20→16:50)
[2017-07-07] MEDS: OXYBUTYNIN CHLORIDE 5 MG TABLET PO SCH ×2 (08:20→16:49)
[2017-07-07] MEDS: BENZTROPINE MESYLATE (1 MG) 1 MG TABLET PO SCH ×3 (08:29→16:49)
--- NOTE | 2017-07-07 09:32 | NUR ---
Discharge Planning: HUEY called and spoke with Keira from [facility] Medical supplies: [phone] / fax #[phone]. Keiar stated that, in their system, it is noted that the medical supplies will be delivered to patient's daughter either today [Friday] or Friday. Keira stated that she will call HUEY back with a confirmation.
--- NOTE | 2017-07-07 10:53 | NUR ---
Discharge Planning: HUEY called and spoke with patient's daughter and TAMIKO Phipps, . HUEY updated her on the medical equipment delivery. HUEY, once again, informed Kari that the home health and IHSS services [including medication management, vital signs monitoring, Physical Therapy, and supportive services] will be up to the agency. HUEY stated that the IHSS / home health agency will send a nurse to conduct an evaluation and they will determine the hours needed for care. HUEY advised Kari to be mindful of that. HUEY stated that that patient's treatment team at hospital can recommend for patient to get "maximum hours of home health" or to get "physical therapy services" but that it will ultimately be to the nurse from the agency to assess, evaluate and decide on the hours and services. Kari stated that she understood.
[2017-07-07 16:00] VITALS: BP 126/71
[2017-07-07 20:08] VITALS: BP 135/76
[2017-07-07] MEDS: DONEPEZIL 5 MG TABLET PO SCH (21:52)
[2017-07-07] MEDS: ATORVASTATIN 10 MG TABLET PO SCH (21:52)
[2017-07-08 08:00] VITALS: BP 134/63
[2017-07-08] MEDS: AMLODIPINE BESYLATE 10 MG TABLET PO SCH (08:32)
[2017-07-08] MEDS: OXYBUTYNIN CHLORIDE 5 MG TABLET PO SCH ×2 (08:32→16:27)
[2017-07-08] MEDS: DIVALPROEX SODIUM 125 MG TABLET.DR PO SCH ×2 (08:32→16:27)
[2017-07-08] MEDS: DOCUSATE SODIUM 100 MG CAPSULE PO SCH ×2 (08:32→16:27)
[2017-07-08] MEDS: PANTOPRAZOLE 40 MG TABLET.DR PO SCH (08:32)
[2017-07-08] MEDS: MEMANTINE HCL 5 MG TABLET PO SCH ×2 (08:32→16:27)
[2017-07-08] MEDS: risperiDONE 0.25 MG TABLET PO SCH ×3 (08:32→16:27)
[2017-07-08] MEDS: ASPIRIN 81 MG TAB.CHEW PO SCH (08:32)
[2017-07-08] MEDS: BENZTROPINE MESYLATE (1 MG) 1 MG TABLET PO SCH ×3 (08:32→16:27)
--- NOTE | 2017-07-08 10:56 | NUR ---
RN NOTE: PATIENT COMPLAINED OF NAUSEA. GIVING ONDANSETRON 4MG.
--- NOTE | 2017-07-08 11:52 | NUR ---
Discharge Planning: HUEY contacted Keira from [facility] supplies: [phone] / fax #[phone] and was informed that the delivery will not be able to be made today. Keira stated that the hospital bed was approved, but not the wheelchair. This is holding up the entirety of the delivery. Keira stated that, in order for the wheelchair to be approved, the medical doctor has to note that the patient "needs a wheelchair and that a cane/walker will not suffice and have been ruled out" HUEY informed JUDY Black of this. RN stated that he will notify medical doctor.
--- NOTE | 2017-07-08 14:42 | NUR ---
Discharge Planning: JUDY Black obtained a TO order from patient's medical doctor regarding the wheelchair. HUEY contacted Keira from [facility] supplies: [phone] / fax #[phone] and discussed the order. Keira stated that she was able to push to delivery for Friday morning. HUEY faxed over the entire packet once again. Keira asked HUEY to inform patient's daughter Kari to give her a call to confirm address and delivery time. HUEY contacted Kari Phipps, and provided her with Keira number [with Keira's permission].
[2017-07-08 16:17] VITALS: BP 159/99
[2017-07-08 19:57] VITALS: BP 141/75
[2017-07-08 20:00] VITALS: BP 141/75
[2017-07-08] MEDS: ATORVASTATIN 10 MG TABLET PO SCH (21:25)
[2017-07-08] MEDS: DONEPEZIL 5 MG TABLET PO SCH (21:25)
[2017-07-09 08:02] VITALS: BP 146/89
[2017-07-09] MEDS: risperiDONE 0.25 MG TABLET PO SCH ×3 (09:02→16:35)
[2017-07-09] MEDS: ASPIRIN 81 MG TAB.CHEW PO SCH (09:02)
[2017-07-09] MEDS: BENZTROPINE MESYLATE (1 MG) 1 MG TABLET PO SCH ×3 (09:02→16:36)
[2017-07-09] MEDS: AMLODIPINE BESYLATE 10 MG TABLET PO SCH (09:02)
[2017-07-09] MEDS: DOCUSATE SODIUM 100 MG CAPSULE PO SCH ×2 (09:02→16:35)
[2017-07-09] MEDS: PANTOPRAZOLE 40 MG TABLET.DR PO SCH (09:02)
[2017-07-09] MEDS: MEMANTINE HCL 5 MG TABLET PO SCH ×2 (09:02→16:35)
[2017-07-09] MEDS: OXYBUTYNIN CHLORIDE 5 MG TABLET PO SCH ×2 (09:02→16:36)
[2017-07-09] MEDS: DIVALPROEX SODIUM 125 MG TABLET.DR PO SCH ×2 (09:02→16:36)
--- NOTE | 2017-07-09 10:19 | NUR ---
Discharge Planning: HUEY received a call from Keira from [facility] supplies: [phone] / fax #[phone], stating that patient's daughter is refusing the hospital bed and is stating that she never ordered one. HUEY called patient's daughter Kari [phone] who stated that this was inaccurate and that she is waiting for the delivery to take place around 10am. HUEY called Keira back [phone] and informed her of this. Keira checked her records and realized that the company mixed up the patients. HUEY told Keira that the delivery has to take place today because patient is ready for discharge. Keira apologized and told HUEY that she will inform the delivery crew and tell them to re-route the equipment. HUEY informed Kari. Keira will also call patient's daughter.
[2017-07-09 16:08] VITALS: BP 143/67
[2017-07-09 20:23] VITALS: BP 114/61
[2017-07-09] MEDS: ATORVASTATIN 10 MG TABLET PO SCH (21:30)
[2017-07-09] MEDS: DONEPEZIL 5 MG TABLET PO SCH (21:31)
[2017-07-10 08:00] VITALS: BP 122/69
[2017-07-10] MEDS: BENZTROPINE MESYLATE (1 MG) 1 MG TABLET PO SCH ×3 (08:53→16:46)
[2017-07-10] MEDS: risperiDONE 0.25 MG TABLET PO SCH ×3 (08:54→16:46)
[2017-07-10] MEDS: DOCUSATE SODIUM 100 MG CAPSULE PO SCH ×2 (08:54→16:46)
[2017-07-10] MEDS: ASPIRIN 81 MG TAB.CHEW PO SCH (08:54)
[2017-07-10] MEDS: OXYBUTYNIN CHLORIDE 5 MG TABLET PO SCH ×2 (08:54→16:46)
[2017-07-10] MEDS: DIVALPROEX SODIUM 125 MG TABLET.DR PO SCH ×2 (08:54→16:46)
[2017-07-10] MEDS: AMLODIPINE BESYLATE 10 MG TABLET PO SCH (08:54)
[2017-07-10] MEDS: MEMANTINE HCL 5 MG TABLET PO SCH ×2 (08:54→16:46)
[2017-07-10] MEDS: PANTOPRAZOLE 40 MG TABLET.DR PO SCH (08:57)
--- NOTE | 2017-07-10 09:17 | NUR ---
Discharge Note: Last evening, HUEY confirmed with patient's daughter/DPOA Kari [phone] that she received the hospital bed and wheelchair. Kari stated that she has it set up at home and that she is able to pick her mother up on 07/10/17 at 6pm.
[2017-07-10 16:00] VITALS: BP 132/69
--- NOTE | 2017-07-10 16:25 | NUR ---
Discharge Note: Patient [place] be discharged home to [id number] [place] [address]. Patient will be picked up by daughter/DPNELDA Diane, . SW has had numerous conversations with patients daughter, who wants to care for her mother at home. SW confirmed with Roxi that she received the hospital bed and wheelchair ordered by the SW and that she has the necessary equipment to care for her mother at home. SW also obtained an order for patients psychiatrist, recommending that patient receives the maximum number of hours for IHSS. HUEY also informed the nursing staff to obtain a home-health order from the medical doctor. HUEY explained to patients daughter Roxi that the hours that will be allotted to patient will depend on the evaluation and assessment of the agency and that she may not get the hours that she is looking for. Roxi stated that she understood. HUEY faxed home health order to [facility] [phone] / fax # [phone]. The agency will follow up directly with Roxi and patient. On the day of discharge, patient is cooperative and calm. Patient denies suicidal and homicidal ideation. Patient was referred to see an enterostomal nurse at [facility] [address] [facility] . Patient will follow up with a psychiatrist at [facility] [address] . HUEY called and left a voicemail for intake to assist in setting up an appointment. In addition, HUEY provided a list of mental health resources of patient. Please see copy in the chart.
--- NOTE | 2017-07-10 19:21 | NUR ---
GPS/RN-NOTES PATIENT WILL BE DISCHARGE TO HOME TODAY . DAUGHTER SHASTA PT. DAUGHTER IN THE UNIT FOR PLASTIC MANAGER BUT DAUGHTER REQUESTED PATIENT NEEDS TO BE TRANSPORTED VIA AMBULANCE DUE TO PATIENT WON'T BE ABLE TO SIT IN HER CAR.CALLED AMBULANCE FOR THE PATIENTS TRANSPORTATION HOME. ELECTRONIC ENGINEERING TECHNICIAN AWARE. ENDORSE TO NIGHT NURSE FOR THE CONTINUITY OF CARE AND DISCHARGE PROCESS.
== END 2017-07-10 19:40 | disposition home health service (06) | DRG 885 ==
LOC: GPS 19:58
PROVIDERS: ADMIT Psychiatry & Neurology Psychosomatic Medicine; ATTEND Psychiatry & Neurology Psychosomatic Medicine
DX: F25.0 Schizoaffective disorder, bipolar type (principal); F02.80 Dementia in other diseases classified elsewhere, unspecified severity, without behavioral disturbance, psychotic disturbance, mood disturbance, and anxiety; G93.41 Metabolic encephalopathy; G30.9 Alzheimer's disease, unspecified; E44.1 Mild protein-calorie malnutrition; N39.0 Urinary tract infection, site not specified; E78.5 Hyperlipidemia, unspecified; I10 Essential (primary) hypertension; Z87.891 Personal history of nicotine dependence; M21.331 Wrist drop, right wrist; Z90.710 Acquired absence of both cervix and uterus
CPT/HCPCS: 36415; 80053-TC; 80061-TC; 82962-TC; 85025-TC; 87081-TC; 97112-TC; 97530-TC; 97535-TC; Q0162

== ENCOUNTER 2017-11-07 14:33 | Inpatient (IN) | payer MEDICARE, OTHER ==
[~2017-11-07] VITALS: Ht 165.1 cm; Wt 59.4 kg
[~2017-11-07 14:33] MED LIST changes: +DOCU100C36 PO; +DONE10TA44 PO
[2017-11-07] MEDS ORDERED: IV NS 0.9% 1,000 ML BAG IV ONE (16:30)
[2017-11-07 16:51] LABS: CARBON DIOXIDE 32 mmol/L (21-32); CHLORIDE 107 mmol/L (98-107); CREATININE 0.8 mg/dL (0.6-1.3); GLUCOSE 90 mg/dL (74-106); POTASSIUM 3.6 mmol/L (3.5-5.1); SODIUM SERUM 144 mmol/L (136-145); UREA NITROGEN, BLOOD 21 mg/dL (7-18)
[2017-11-07 16:57] LABS: ALANINE AMINOTRANSFERASE 15 U/L (12-78); ALBUMIN 3.4 g/dL (3.4-5.0); ALKALINE PHOSPHATASE 131 U/L (46-116); ASPARTATE AMINOTRANSFERASE 21 U/L (15-37); BILIRUBIN,DIRECT 0.1 mg/dL (0.0-0.2); BILIRUBIN,TOTAL 0.4 mg/dL (0.2-1.0); TOTAL PROTEIN, SERUM 7.8 g/dL (6.4-8.2)
[2017-11-07 16:59] LABS: TROPONIN I < 0.017 ng/mL (0.00-0.056)
[2017-11-07 17:09] LABS: BASOPHILS # (AUTO) 0.1 /CMM (0.0-0.2); BASOPHILS % (AUTO) 1.9 % (0.0-2.0); EOSINOPHILS % (AUTO) 4.6 % (0.0-6.0); HEMATOCRIT 39 % (33-45); HEMOGLOBIN 12.9 g/dL (11.5-14.8); LYMPHOCYTES # (AUTO) 1.2 /CMM (0.8-4.8); LYMPHOCYTES % (AUTO) 22.1 % (20.0-44.0); MEAN CORPUSCULAR HEMOGLOBIN 30 PG (26.0-33.0); MEAN CORPUSCULAR HGB CONC 33 g/dl (31.0-36.0); MEAN CORPUSCULAR VOLUME 89 fL (82-100); MONOCYTES # (AUTO) 0.5 /CMM (0.1-1.30); MONOCYTES % (AUTO) 9.3 % (2.0-12.0); NEUTROPHILS # (AUTO) 3.3 /CMM (1.8-8.9); NEUTROPHILS % (AUTO) 62.1 % (43.0-81.0); PLATELET COUNT (AUTO) 170 /CMM (150-450); RDW COEFFICIENT OF VARIATION 13.1 (11.5-15.0); RED BLOOD CELL COUNT(AUTO) 4.36 MIL/uL (4.0-5.2); WHITE BLOOD COUNT (AUTO) 5.4 K/uL (4.3-11.0)
[2017-11-07 17:40] LABS: APPEARANCE,URINE Cloudy (CLEAR); BILIRUBIN,URINE Negative (NEGATIVE); BLOOD, URINE Small Ery/uL (NEGATIVE); COLOR,URINE Yellow (YELLOW); KETONES,URINE Trace (NEGATIVE); LEUKOCYTE ESTERASE ,URINE Moderate (NEGATIVE); NITRITE, URINE Negative (NEGATIVE); PROTEIN,URINE 30 mg/dl (NEGATIVE); UGLUCOSE Negative (NEGATIVE)
[2017-11-07] MEDS ORDERED: CEFTRIAXONE 1GM BAG (ER ONLY) 1 GM/50 ML PIGGYBACK IV ONE (18:00)
[2017-11-07 18:02] LABS: BACTERIA,URINE Many /HPF (None Seen)
[2017-11-07 18:03] LABS: SQUAMOUS EPITHELIAL CELL,UR Few /HPF (None Seen)
[2017-11-07] MEDS ORDERED: RISP0.253 PO (18:29)
[2017-11-07] MEDS ORDERED: BENZ0.5T43 PO (18:29)
[2017-11-07] MEDS ORDERED: DIVA250T6 PO (18:29)
[2017-11-07] MEDS ORDERED: CEFTRIAXONE 1GM BAG (ER ONLY) 50 ML IV ONE (18:55)
[2017-11-07 21:30] VITALS: BP 139/98
[2017-11-07] MEDS ORDERED: ACETAMINOPHEN 325 MG TABLET PO PRN (22:00)
[2017-11-07] MEDS ORDERED: ONDANSETRON HCL/PF 4 MG/2 ML VIAL IV PRN (22:00)
[2017-11-07] MEDS ORDERED: Z GUARD REMEDY 2 OZ OINT TP PRN (22:00)
[2017-11-07] MEDS: DONEPEZIL 5 MG TABLET PO SCH (22:47)
[2017-11-07] MEDS: ATORVASTATIN 10 MG TABLET PO SCH (22:49)
[2017-11-08] MEDS ORDERED: PANTOPRAZOLE 40 MG TABLET.DR PO SCH ×2 (07:30)
[2017-11-08 08:00] VITALS: BP 131/73
[2017-11-08] MEDS ORDERED: DOCUSATE SODIUM 100 MG CAPSULE PO SCH (09:00)
[2017-11-08] MEDS: DIVALPROEX SODIUM 250 MG TABLET.DR PO SCH ×2 (09:07→16:41)
[2017-11-08] MEDS: AMLODIPINE BESYLATE 10 MG TABLET PO SCH (09:07)
[2017-11-08] MEDS: ASPIRIN 81 MG TAB.CHEW PO SCH (09:07)
[2017-11-08] MEDS: risperiDONE 0.25 MG TABLET PO SCH ×3 (09:07→16:41)
[2017-11-08] MEDS: OXYBUTYNIN CHLORIDE 5 MG TABLET PO SCH ×2 (09:08→16:41)
[2017-11-08 16:00] VITALS: BP 130/64
[2017-11-08] MEDS: DOCUSATE SODIUM LIQ 100 MG/10 ML UDC PO SCH (16:41)
[2017-11-08] MEDS: CEFTRIAXONE 1 G in IV NS 0.9% 50 ML IV SCH (17:03)
[2017-11-08] MEDS ORDERED: ONDANSETRON 4 MG TAB.RAPDIS PO PRN (17:30)
[2017-11-08] MEDS: BENZTROPINE MESYLATE (1 MG) 1 MG TABLET PO SCH (17:41)
[2017-11-08 20:00] VITALS: BP 133/78
[2017-11-08] MEDS: ATORVASTATIN 10 MG TABLET PO SCH (22:02)
[2017-11-08] MEDS: DONEPEZIL 5 MG TABLET PO SCH (22:02)
[2017-11-09 07:07] LABS: BASOPHILS % (AUTO) 0.6 % (0.0-2.0); EOSINOPHILS % (AUTO) 8.3 % (0.0-6.0); HEMATOCRIT 39 % (33-45); HEMOGLOBIN 13.1 g/dL (11.5-14.8); LYMPHOCYTES # (AUTO) 1.1 /CMM (0.8-4.8); LYMPHOCYTES % (AUTO) 33.2 % (20.0-44.0); MEAN CORPUSCULAR HEMOGLOBIN 31 PG (26.0-33.0); MEAN CORPUSCULAR HGB CONC 34 g/dl (31.0-36.0); MEAN CORPUSCULAR VOLUME 92 fL (82-100); MONOCYTES # (AUTO) 0.4 /CMM (0.1-1.30); MONOCYTES % (AUTO) 11.9 % (2.0-12.0); NEUTROPHILS # (AUTO) 1.6 /CMM (1.8-8.9); PLATELET COUNT (AUTO) 156 /CMM (150-450); RDW COEFFICIENT OF VARIATION 13.3 (11.5-15.0); WHITE BLOOD COUNT (AUTO) 3.4 K/uL (4.3-11.0)
[2017-11-09 07:54] LABS: ALBUMIN 2.8 g/dL (3.4-5.0); BILIRUBIN,TOTAL 0.2 mg/dL (0.2-1.0); CALCIUM, SERUM 9.2 mg/dL (8.5-10.1); CREATININE 0.7 mg/dL (0.6-1.3); MAGNESIUM 1.6 mg/dL (1.8-2.4); PHOSPHORUS 3.3 mg/dL (2.5-4.9); TOTAL PROTEIN, SERUM 6.5 g/dL (6.4-8.2)
[2017-11-09 07:59] LABS: POTASSIUM 3.3 mmol/L (3.5-5.1)
[2017-11-09 08:00] VITALS: BP_SYST 129; BP_DIAS 61; BP_DIAS 66
[2017-11-09] MEDS: BENZTROPINE MESYLATE (1 MG) 1 MG TABLET PO SCH ×2 (08:16→16:23)
[2017-11-09] MEDS: DIVALPROEX SODIUM 250 MG TABLET.DR PO SCH ×2 (08:16→16:23)
[2017-11-09] MEDS: MEMANTINE HCL 5 MG TABLET PO SCH ×2 (08:16→16:23)
[2017-11-09] MEDS: risperiDONE 0.25 MG TABLET PO SCH ×3 (08:16→16:23)
[2017-11-09] MEDS: ASPIRIN 81 MG TAB.CHEW PO SCH (08:16)
[2017-11-09] MEDS: OXYBUTYNIN CHLORIDE 5 MG TABLET PO SCH ×2 (08:16→16:24)
[2017-11-09] MEDS: PANTOPRAZOLE 40 MG/PACK PACK PO SCH (08:16)
[2017-11-09] MEDS: DOCUSATE SODIUM LIQ 100 MG/10 ML UDC PO SCH ×2 (08:16→16:23)
[2017-11-09] MEDS: AMLODIPINE BESYLATE 10 MG TABLET PO SCH (08:20)
[2017-11-09] MEDS ORDERED: MAGNESIUM CITRATE 296 ML BOTTLE PO ONE (13:00)
[2017-11-09] MEDS ORDERED: PEG 3350/NA SULF,BICARB,CL/KCL 4,000 ML BOTTLE PO ONE (13:00)
[2017-11-09] MEDS ORDERED: NA PHOS,M-B/NA PHOS,DI-BA 1 EA ENEMA RC PRN (13:00)
[2017-11-09 13:26] LABS: INR 1.06 (0.87-1.13)
[2017-11-09] MEDS: Magnesium 1GM/D5W 100ML PREMIX 100 ML IV SCH ×2 (16:23→17:12)
[2017-11-09] MEDS ORDERED: POTASSIUM CHLORIDE 20 MEQ TAB.PRT.SR PO ONE (16:30)
[2017-11-09] MEDS: CEFTRIAXONE 1 G in IV NS 0.9% 50 ML IV SCH (17:53)
[2017-11-09 18:26] LABS: OCCULT BLOOD STOOL NEGATIVE (NEGATIVE)
[2017-11-09 20:00] VITALS: BP 124/71
[2017-11-09 20:54] VITALS: BP 124/71
[2017-11-09] MEDS: DONEPEZIL 5 MG TABLET PO SCH (21:00)
[2017-11-09] MEDS: ATORVASTATIN 10 MG TABLET PO SCH (21:00)
[2017-11-10] MEDS ORDERED: NA PHOS,M-B/NA PHOS,DI-BA 1 EA ENEMA RC PRN (06:00)
[2017-11-10] MEDS: PANTOPRAZOLE 40 MG/PACK PACK PO SCH (07:30)
[2017-11-10] MEDS ORDERED: ANESTHESIA TRAY IN PYXIS 1 EA TRAY MC ONE (07:36)
[2017-11-10] MEDS ORDERED: SUCCINYLCHOLINE CHLORIDE 20 MG/ML VIAL ONE (07:38)
[2017-11-10 09:00] VITALS: BP 144/70
[2017-11-10] MEDS: BENZTROPINE MESYLATE (1 MG) 1 MG TABLET PO SCH ×2 (10:09→17:21)
[2017-11-10] MEDS: AMLODIPINE BESYLATE 10 MG TABLET PO SCH (10:09)
[2017-11-10] MEDS: DIVALPROEX SODIUM 250 MG TABLET.DR PO SCH ×2 (10:09→17:21)
[2017-11-10] MEDS: MEMANTINE HCL 5 MG TABLET PO SCH ×2 (10:10→17:21)
[2017-11-10] MEDS: MEROPENEM 500 MG in IV NS 0.9% 50 ML IV SCH ×2 (10:10→17:21)
[2017-11-10] MEDS: ASPIRIN 81 MG TAB.CHEW PO SCH (10:10)
[2017-11-10] MEDS: risperiDONE 0.25 MG TABLET PO SCH ×3 (10:10→17:22)
[2017-11-10] MEDS: DOCUSATE SODIUM LIQ 100 MG/10 ML UDC PO SCH ×2 (10:10→17:22)
[2017-11-10] MEDS: OXYBUTYNIN CHLORIDE 5 MG TABLET PO SCH ×2 (10:10→17:21)
[2017-11-10 16:00] VITALS: BP 152/82
[2017-11-10] MEDS: ENSURE ENLIVE CHOC 237 ML CAN PO SCH (17:00)
[2017-11-10 20:00] VITALS: BP 137/61
[2017-11-10] MEDS: DONEPEZIL 5 MG TABLET PO SCH (22:34)
[2017-11-10] MEDS: ATORVASTATIN 10 MG TABLET PO SCH (22:34)
[2017-11-10] MEDS: ZOLPIDEM TARTRATE 5 MG TABLET PO PRN (22:34)
[2017-11-11] MEDS: MEROPENEM 500 MG in IV NS 0.9% 50 ML IV SCH (01:49)
[2017-11-11 06:27] LABS: BASOPHILS % (AUTO) 0.4 % (0.0-2.0); EOSINOPHILS % (AUTO) 2.3 % (0.0-6.0); HEMATOCRIT 42 % (33-45); HEMOGLOBIN 13.8 g/dL (11.5-14.8); LYMPHOCYTES # (AUTO) 1.1 /CMM (0.8-4.8); MEAN CORPUSCULAR HEMOGLOBIN 31 PG (26.0-33.0); MEAN CORPUSCULAR HGB CONC 33 g/dl (31.0-36.0); MEAN CORPUSCULAR VOLUME 94 fL (82-100); MONOCYTES # (AUTO) 0.9 /CMM (0.1-1.30); MONOCYTES % (AUTO) 15.9 % (2.0-12.0); NEUTROPHILS # (AUTO) 3.6 /CMM (1.8-8.9); NEUTROPHILS % (AUTO) 62.4 % (43.0-81.0); PLATELET COUNT (AUTO) 122 /CMM (150-450); RDW COEFFICIENT OF VARIATION 13.5 (11.5-15.0); RED BLOOD CELL COUNT(AUTO) 4.52 MIL/uL (4.0-5.2); WHITE BLOOD COUNT (AUTO) 5.8 K/uL (4.3-11.0)
[2017-11-11 06:34] LABS: ALBUMIN 3.1 g/dL (3.4-5.0); BILIRUBIN,TOTAL 0.4 mg/dL (0.2-1.0); CALCIUM, SERUM 9.9 mg/dL (8.5-10.1); CREATININE 0.8 mg/dL (0.6-1.3); POTASSIUM 3.6 mmol/L (3.5-5.1); TOTAL PROTEIN, SERUM 6.9 g/dL (6.4-8.2)
[2017-11-11 08:00] VITALS: BP 144/70
[2017-11-11 08:16] LABS: EOSINOPHILS % (MANUAL) 5 % (0-4); LYMPHOCYTES % (MANUAL) 14 % (16-48); MONOCYTES % (MANUAL) 13 % (0-11.0); NEUTROPHILS % (MANUAL) 68 (42-76)
[2017-11-11] MEDS: ASPIRIN 81 MG TAB.CHEW PO SCH (08:33)
[2017-11-11] MEDS: DOCUSATE SODIUM LIQ 100 MG/10 ML UDC PO SCH ×2 (08:33→17:59)
[2017-11-11] MEDS: PANTOPRAZOLE 40 MG/PACK PACK PO SCH (08:33)
[2017-11-11] MEDS: risperiDONE 0.25 MG TABLET PO SCH ×3 (08:34→18:01)
[2017-11-11] MEDS: MEMANTINE HCL 5 MG TABLET PO SCH ×2 (08:34→18:00)
[2017-11-11] MEDS: DIVALPROEX SODIUM 250 MG TABLET.DR PO SCH ×2 (08:34→18:00)
[2017-11-11] MEDS: OXYBUTYNIN CHLORIDE 5 MG TABLET PO SCH ×2 (08:34→17:59)
[2017-11-11] MEDS: AMLODIPINE BESYLATE 10 MG TABLET PO SCH (08:35)
[2017-11-11] MEDS: BENZTROPINE MESYLATE (1 MG) 1 MG TABLET PO SCH ×2 (08:36→18:00)
[2017-11-11] MEDS: ENSURE ENLIVE CHOC 237 ML CAN PO SCH ×2 (09:59→17:59)
[2017-11-11] MEDS: MEROPENEM 1 G in IV NS 0.9% 100 ML IV SCH ×2 (11:25→21:19)
[2017-11-11 16:00] VITALS: BP 132/61
[2017-11-11] MEDS: HYDROCORTISONE ACETATE 25 MG/SUPP.RECT SUPP.RECT RC SCH (17:49)
[2017-11-11] MEDS: ACETAMINOPHEN 325 MG TABLET PO PRN (18:03)
[2017-11-11] MEDS: DONEPEZIL 5 MG TABLET PO SCH (21:18)
[2017-11-11] MEDS: ATORVASTATIN 10 MG TABLET PO SCH (21:18)
[2017-11-11] MEDS ORDERED: PERMETHRIN 5% CRM 60 GM TUBE TP ONE ×2 (22:30→23:41)
[2017-11-11] MEDS ORDERED: IVERMECTIN 3 MG TABLET PO ONE (22:30)
[2017-11-12] MEDS: HYDROCORTISONE ACETATE 25 MG/SUPP.RECT SUPP.RECT RC SCH ×2 (02:23→17:58)
[2017-11-12 07:00] VITALS: BP 135/75
[2017-11-12] MEDS ORDERED: IVERMECTIN 3 MG TABLET PO ONE (09:00)
[2017-11-12] MEDS: MEROPENEM 1 G in IV NS 0.9% 100 ML IV SCH ×2 (09:13→21:03)
[2017-11-12] MEDS: ENSURE ENLIVE CHOC 237 ML CAN PO SCH ×2 (09:31→17:58)
[2017-11-12] MEDS: DOCUSATE SODIUM LIQ 100 MG/10 ML UDC PO SCH ×2 (09:31→17:59)
[2017-11-12] MEDS: PANTOPRAZOLE 40 MG/PACK PACK PO SCH (09:32)
[2017-11-12] MEDS: risperiDONE 0.25 MG TABLET PO SCH ×3 (09:33→17:59)
[2017-11-12] MEDS: ASPIRIN 81 MG TAB.CHEW PO SCH (09:33)
[2017-11-12] MEDS: DIVALPROEX SODIUM 250 MG TABLET.DR PO SCH ×2 (09:33→17:59)
[2017-11-12] MEDS: OXYBUTYNIN CHLORIDE 5 MG TABLET PO SCH ×2 (09:33→17:59)
[2017-11-12] MEDS: AMLODIPINE BESYLATE 10 MG TABLET PO SCH (09:34)
[2017-11-12] MEDS: BENZTROPINE MESYLATE (1 MG) 1 MG TABLET PO SCH ×2 (09:34→17:59)
[2017-11-12] MEDS: MEMANTINE HCL 5 MG TABLET PO SCH ×2 (09:35→18:10)
[2017-11-12 16:00] VITALS: BP 129/85
[2017-11-12 20:00] VITALS: BP 129/55
[2017-11-12] MEDS: DONEPEZIL 5 MG TABLET PO SCH (22:21)
[2017-11-12] MEDS: ATORVASTATIN 10 MG TABLET PO SCH (22:21)
[2017-11-12] MEDS: ZOLPIDEM TARTRATE 5 MG TABLET PO PRN (22:26)
[2017-11-13] MEDS: HYDROCORTISONE ACETATE 25 MG/SUPP.RECT SUPP.RECT RC SCH ×2 (03:37→15:55)
[2017-11-13] MEDS: PANTOPRAZOLE 40 MG/PACK PACK PO SCH (07:04)
[2017-11-13 08:00] VITALS: BP 143/86
[2017-11-13] MEDS: MEROPENEM 1 G in IV NS 0.9% 100 ML IV SCH ×2 (09:03→21:01)
[2017-11-13] MEDS: BENZTROPINE MESYLATE (1 MG) 1 MG TABLET PO SCH ×2 (09:03→16:40)
[2017-11-13] MEDS: ASPIRIN 81 MG TAB.CHEW PO SCH (09:03)
[2017-11-13] MEDS: risperiDONE 0.25 MG TABLET PO SCH ×3 (09:03→16:40)
[2017-11-13] MEDS: MEMANTINE HCL 5 MG TABLET PO SCH ×2 (09:03→16:40)
[2017-11-13] MEDS: DIVALPROEX SODIUM 250 MG TABLET.DR PO SCH ×2 (09:03→16:39)
[2017-11-13] MEDS: OXYBUTYNIN CHLORIDE 5 MG TABLET PO SCH ×2 (09:03→16:39)
[2017-11-13] MEDS: DOCUSATE SODIUM LIQ 100 MG/10 ML UDC PO SCH ×2 (09:03→16:39)
[2017-11-13] MEDS: AMLODIPINE BESYLATE 10 MG TABLET PO SCH (09:04)
[2017-11-13] MEDS: ENSURE ENLIVE CHOC 237 ML CAN PO SCH ×2 (09:32→16:40)
[2017-11-13 16:00] VITALS: BP 141/95
[2017-11-13 20:00] VITALS: BP_SYST 133; BP_SYST 150; BP_DIAS 75; BP_DIAS 76
[2017-11-13] MEDS: ATORVASTATIN 10 MG TABLET PO SCH (21:02)
[2017-11-13] MEDS: DONEPEZIL 5 MG TABLET PO SCH (21:02)
[2017-11-13] MEDS: ZOLPIDEM TARTRATE 5 MG TABLET PO PRN (22:25)
[2017-11-14] MEDS: HYDROCORTISONE ACETATE 25 MG/SUPP.RECT SUPP.RECT RC SCH ×2 (02:02→15:50)
[2017-11-14 07:13] LABS: BASOPHILS % (AUTO) 0.3 % (0.0-2.0); EOSINOPHILS % (AUTO) 1.7 % (0.0-6.0); HEMATOCRIT 39 % (33-45); HEMOGLOBIN 13.2 g/dL (11.5-14.8); LYMPHOCYTES # (AUTO) 1.2 /CMM (0.8-4.8); LYMPHOCYTES % (AUTO) 24.4 % (20.0-44.0); MEAN CORPUSCULAR HEMOGLOBIN 31 PG (26.0-33.0); MEAN CORPUSCULAR HGB CONC 34 g/dl (31.0-36.0); MEAN CORPUSCULAR VOLUME 93 fL (82-100); MONOCYTES # (AUTO) 0.4 /CMM (0.1-1.30); MONOCYTES % (AUTO) 7.9 % (2.0-12.0); NEUTROPHILS # (AUTO) 3.1 /CMM (1.8-8.9); NEUTROPHILS % (AUTO) 65.7 % (43.0-81.0); PLATELET COUNT (AUTO) 186 /CMM (150-450); RDW COEFFICIENT OF VARIATION 13.8 (11.5-15.0); RED BLOOD CELL COUNT(AUTO) 4.21 MIL/uL (4.0-5.2); WHITE BLOOD COUNT (AUTO) 4.7 K/uL (4.3-11.0)
[2017-11-14 08:00] VITALS: BP 137/83
[2017-11-14] MEDS: PANTOPRAZOLE 40 MG/PACK PACK PO SCH ×2 (08:06→16:52)
[2017-11-14 08:10] VITALS: BP 137/83
[2017-11-14] MEDS: ENSURE ENLIVE CHOC 237 ML CAN PO SCH ×2 (08:13→16:52)
[2017-11-14 08:43] LABS: ALBUMIN 3.1 g/dL (3.4-5.0); BILIRUBIN,TOTAL 0.3 mg/dL (0.2-1.0); CALCIUM, SERUM 9.7 mg/dL (8.5-10.1); CREATININE 0.8 mg/dL (0.6-1.3); TOTAL PROTEIN, SERUM 7.1 g/dL (6.4-8.2)
[2017-11-14] MEDS: MEROPENEM 1 G in IV NS 0.9% 100 ML IV SCH ×2 (09:06→20:17)
[2017-11-14] MEDS: DOCUSATE SODIUM LIQ 100 MG/10 ML UDC PO SCH ×2 (09:07→16:53)
[2017-11-14] MEDS: ASPIRIN 81 MG TAB.CHEW PO SCH (09:07)
[2017-11-14] MEDS: BENZTROPINE MESYLATE (1 MG) 1 MG TABLET PO SCH ×2 (09:07→16:52)
[2017-11-14] MEDS: OXYBUTYNIN CHLORIDE 5 MG TABLET PO SCH ×2 (09:07→16:53)
[2017-11-14] MEDS: MEMANTINE HCL 5 MG TABLET PO SCH ×2 (09:08→16:52)
[2017-11-14] MEDS: risperiDONE 0.25 MG TABLET PO SCH ×3 (09:08→16:53)
[2017-11-14] MEDS: AMLODIPINE BESYLATE 10 MG TABLET PO SCH (09:10)
[2017-11-14 16:00] VITALS: BP 158/101
[2017-11-14] MEDS: METRONIDAZOLE 500 MG TABLET PO SCH (16:52)
[2017-11-14] MEDS: VALPROIC ACID 250 MG/5 ML UDC PO SCH (16:53)
[2017-11-14 20:00] VITALS: BP 150/84
[2017-11-14] MEDS: CLARITHROMYCIN 500 MG TABLET PO SCH (20:17)
[2017-11-14] MEDS: ATORVASTATIN 10 MG TABLET PO SCH (21:00)
[2017-11-14] MEDS ORDERED: PERMETHRIN 5% CRM 60 GM TUBE TP ONE (21:00)
[2017-11-14] MEDS: DONEPEZIL 5 MG TABLET PO SCH (21:00)
[2017-11-15] MEDS: HYDROCORTISONE ACETATE 25 MG/SUPP.RECT SUPP.RECT RC SCH ×2 (02:04→17:20)
[2017-11-15 08:00] VITALS: BP 151/85
[2017-11-15] MEDS: DOCUSATE SODIUM LIQ 100 MG/10 ML UDC PO SCH ×2 (10:01→17:20)
[2017-11-15] MEDS: MEROPENEM 1 G in IV NS 0.9% 100 ML IV SCH ×2 (10:01→21:22)
[2017-11-15] MEDS: VALPROIC ACID 250 MG/5 ML UDC PO SCH ×2 (10:02→17:20)
[2017-11-15] MEDS: risperiDONE 0.25 MG TABLET PO SCH ×3 (10:02→17:20)
[2017-11-15] MEDS: ASPIRIN 81 MG TAB.CHEW PO SCH (10:03)
[2017-11-15] MEDS: BENZTROPINE MESYLATE (1 MG) 1 MG TABLET PO SCH ×2 (10:03→17:21)
[2017-11-15] MEDS: METRONIDAZOLE 500 MG TABLET PO SCH ×2 (10:03→17:21)
[2017-11-15] MEDS: OXYBUTYNIN CHLORIDE 5 MG TABLET PO SCH ×2 (10:04→17:21)
[2017-11-15] MEDS: PANTOPRAZOLE 40 MG/PACK PACK PO SCH ×2 (10:04→17:20)
[2017-11-15] MEDS: AMLODIPINE BESYLATE 10 MG TABLET PO SCH (10:04)
[2017-11-15] MEDS: CLARITHROMYCIN 500 MG TABLET PO SCH ×2 (10:05→21:23)
[2017-11-15] MEDS: ENSURE ENLIVE CHOC 237 ML CAN PO SCH ×2 (10:06→17:21)
[2017-11-15] MEDS: MEMANTINE HCL 5 MG TABLET PO SCH ×2 (10:11→17:22)
[2017-11-15] MEDS: ACETAMINOPHEN 325 MG TABLET PO PRN (13:24)
[2017-11-15 16:00] VITALS: BP 125/66
[2017-11-15 20:00] VITALS: BP 112/55
[2017-11-15] MEDS: DONEPEZIL 5 MG TABLET PO SCH (21:23)
[2017-11-15] MEDS: ATORVASTATIN 10 MG TABLET PO SCH (21:24)
[2017-11-16] MEDS: ZOLPIDEM TARTRATE 5 MG TABLET PO PRN ×2 (00:23→23:27)
[2017-11-16] MEDS: HYDROCORTISONE ACETATE 25 MG/SUPP.RECT SUPP.RECT RC SCH ×2 (03:25→15:06)
[2017-11-16 08:00] VITALS: BP 96/63
[2017-11-16] MEDS: ENSURE ENLIVE CHOC 237 ML CAN PO SCH ×2 (08:37→17:56)
[2017-11-16] MEDS: MEMANTINE HCL 5 MG TABLET PO SCH ×2 (08:38→17:56)
[2017-11-16] MEDS: MEROPENEM 1 G in IV NS 0.9% 100 ML IV SCH ×2 (08:38→23:48)
[2017-11-16] MEDS: OXYBUTYNIN CHLORIDE 5 MG TABLET PO SCH ×2 (08:38→17:56)
[2017-11-16] MEDS: ASPIRIN 81 MG TAB.CHEW PO SCH (08:38)
[2017-11-16] MEDS: AMLODIPINE BESYLATE 10 MG TABLET PO SCH (08:39)
[2017-11-16] MEDS: METRONIDAZOLE 500 MG TABLET PO SCH ×2 (08:39→17:56)
[2017-11-16] MEDS: BENZTROPINE MESYLATE (1 MG) 1 MG TABLET PO SCH ×2 (08:39→17:56)
[2017-11-16] MEDS: PANTOPRAZOLE 40 MG/PACK PACK PO SCH ×2 (08:39→17:56)
[2017-11-16] MEDS: risperiDONE 0.25 MG TABLET PO SCH ×3 (08:39→17:56)
[2017-11-16] MEDS: VALPROIC ACID 250 MG/5 ML UDC PO SCH ×2 (08:39→17:56)
[2017-11-16] MEDS: DOCUSATE SODIUM LIQ 100 MG/10 ML UDC PO SCH ×2 (08:39→17:56)
[2017-11-16] MEDS: CLARITHROMYCIN 500 MG TABLET PO SCH ×2 (09:02→21:30)
[2017-11-16 16:00] VITALS: BP 119/66
[2017-11-16 20:00] VITALS: BP 112/52
[2017-11-16] MEDS: DONEPEZIL 5 MG TABLET PO SCH (21:30)
[2017-11-16] MEDS: ATORVASTATIN 10 MG TABLET PO SCH (21:31)
[2017-11-17] MEDS: HYDROCORTISONE ACETATE 25 MG/SUPP.RECT SUPP.RECT RC SCH ×2 (02:43→14:51)
[2017-11-17 08:00] VITALS: BP_SYST 123; BP_SYST 125; BP_DIAS 65
[2017-11-17] MEDS: VALPROIC ACID 250 MG/5 ML UDC PO SCH ×2 (08:33→16:13)
[2017-11-17] MEDS: ASPIRIN 81 MG TAB.CHEW PO SCH (08:34)
[2017-11-17] MEDS: risperiDONE 0.25 MG TABLET PO SCH ×3 (08:34→16:13)
[2017-11-17] MEDS: DOCUSATE SODIUM LIQ 100 MG/10 ML UDC PO SCH ×2 (08:34→16:13)
[2017-11-17] MEDS: BENZTROPINE MESYLATE (1 MG) 1 MG TABLET PO SCH ×2 (08:34→16:13)
[2017-11-17] MEDS: PANTOPRAZOLE 40 MG/PACK PACK PO SCH ×2 (08:34→16:13)
[2017-11-17] MEDS: OXYBUTYNIN CHLORIDE 5 MG TABLET PO SCH ×2 (08:35→16:14)
[2017-11-17] MEDS: METRONIDAZOLE 500 MG TABLET PO SCH ×2 (08:35→16:13)
[2017-11-17] MEDS: MEMANTINE HCL 5 MG TABLET PO SCH ×2 (08:39→16:18)
[2017-11-17] MEDS: AMLODIPINE BESYLATE 10 MG TABLET PO SCH (08:50)
[2017-11-17] MEDS: MEROPENEM 1 G in IV NS 0.9% 100 ML IV SCH ×2 (08:54→21:14)
[2017-11-17] MEDS: ENSURE ENLIVE CHOC 237 ML CAN PO SCH ×2 (08:55→16:15)
[2017-11-17] MEDS: CLARITHROMYCIN 500 MG TABLET PO SCH ×2 (09:03→21:17)
[2017-11-17 16:00] VITALS: BP 149/70
[2017-11-17 19:50] VITALS: BP 104/50
[2017-11-17 19:51] VITALS: BP 104/50
[2017-11-17] MEDS: DONEPEZIL 5 MG TABLET PO SCH (21:17)
[2017-11-17] MEDS: ATORVASTATIN 10 MG TABLET PO SCH (21:17)
[2017-11-17] MEDS: ZOLPIDEM TARTRATE 5 MG TABLET PO PRN (21:17)
[2017-11-18] MEDS: HYDROCORTISONE ACETATE 25 MG/SUPP.RECT SUPP.RECT RC SCH ×2 (03:00→15:35)
[2017-11-18 08:00] VITALS: BP 149/70
[2017-11-18] MEDS: ENSURE ENLIVE CHOC 237 ML CAN PO SCH ×2 (08:29→17:16)
[2017-11-18] MEDS: VALPROIC ACID 250 MG/5 ML UDC PO SCH ×2 (08:29→17:10)
[2017-11-18] MEDS: DOCUSATE SODIUM LIQ 100 MG/10 ML UDC PO SCH ×2 (08:29→17:10)
[2017-11-18] MEDS: METRONIDAZOLE 500 MG TABLET PO SCH ×2 (08:30→17:11)
[2017-11-18] MEDS: BENZTROPINE MESYLATE (1 MG) 1 MG TABLET PO SCH ×2 (08:30→17:10)
[2017-11-18] MEDS: risperiDONE 0.25 MG TABLET PO SCH ×3 (08:30→17:11)
[2017-11-18] MEDS: ASPIRIN 81 MG TAB.CHEW PO SCH (08:30)
[2017-11-18] MEDS: PANTOPRAZOLE 40 MG/PACK PACK PO SCH ×2 (08:30→17:10)
[2017-11-18] MEDS: AMLODIPINE BESYLATE 10 MG TABLET PO SCH (08:31)
[2017-11-18] MEDS: OXYBUTYNIN CHLORIDE 5 MG TABLET PO SCH ×2 (08:31→17:11)
[2017-11-18] MEDS: CLARITHROMYCIN 500 MG TABLET PO SCH ×2 (08:36→21:41)
[2017-11-18] MEDS: MEMANTINE HCL 5 MG TABLET PO SCH ×2 (08:36→17:16)
[2017-11-18] MEDS ORDERED: PERMETHRIN 5% CRM 60 GM TUBE TP ONE (12:30)
[2017-11-18 16:00] VITALS: BP 143/81
[2017-11-18 20:00] VITALS: BP 149/87
[2017-11-18] MEDS: ATORVASTATIN 10 MG TABLET PO SCH (21:47)
[2017-11-18] MEDS: DONEPEZIL 5 MG TABLET PO SCH (21:47)
[2017-11-18] MEDS: ZOLPIDEM TARTRATE 5 MG TABLET PO PRN (21:47)
[2017-11-19] MEDS: HYDROCORTISONE ACETATE 25 MG/SUPP.RECT SUPP.RECT RC SCH ×2 (03:19→16:44)
[2017-11-19 06:39] LABS: BASOPHILS % (AUTO) 0.6 % (0.0-2.0); BILIRUBIN,TOTAL 0.3 mg/dL (0.2-1.0); CALCIUM, SERUM 9.9 mg/dL (8.5-10.1); CREATININE 0.7 mg/dL (0.6-1.3); EOSINOPHILS % (AUTO) 4.8 % (0.0-6.0); HEMATOCRIT 36 % (33-45); HEMOGLOBIN 12.1 g/dL (11.5-14.8); LYMPHOCYTES % (AUTO) 21.2 % (20.0-44.0); MEAN CORPUSCULAR HEMOGLOBIN 31 PG (26.0-33.0); MEAN CORPUSCULAR HGB CONC 33 g/dl (31.0-36.0); MEAN CORPUSCULAR VOLUME 93 fL (82-100); MONOCYTES # (AUTO) 0.6 /CMM (0.1-1.30); MONOCYTES % (AUTO) 12.5 % (2.0-12.0); NEUTROPHILS # (AUTO) 2.9 /CMM (1.8-8.9); NEUTROPHILS % (AUTO) 60.9 % (43.0-81.0); PLATELET COUNT (AUTO) 200 /CMM (150-450); POTASSIUM 3.9 mmol/L (3.5-5.1); RDW COEFFICIENT OF VARIATION 13.8 (11.5-15.0); RED BLOOD CELL COUNT(AUTO) 3.91 MIL/uL (4.0-5.2); TOTAL PROTEIN, SERUM 6.8 g/dL (6.4-8.2); WHITE BLOOD COUNT (AUTO) 4.8 K/uL (4.3-11.0)
[2017-11-19 07:31] VITALS: BP 149/87
[2017-11-19 08:00] VITALS: BP 149/83
[2017-11-19] MEDS: ENSURE ENLIVE CHOC 237 ML CAN PO SCH ×2 (08:18→16:55)
[2017-11-19] MEDS: BENZTROPINE MESYLATE (1 MG) 1 MG TABLET PO SCH ×2 (08:19→16:50)
[2017-11-19] MEDS: risperiDONE 0.25 MG TABLET PO SCH ×3 (08:19→16:51)
[2017-11-19] MEDS: DOCUSATE SODIUM LIQ 100 MG/10 ML UDC PO SCH ×2 (08:19→16:50)
[2017-11-19] MEDS: OXYBUTYNIN CHLORIDE 5 MG TABLET PO SCH ×2 (08:19→16:50)
[2017-11-19] MEDS: PANTOPRAZOLE 40 MG/PACK PACK PO SCH ×2 (08:19→16:51)
[2017-11-19] MEDS: CLARITHROMYCIN 500 MG TABLET PO SCH ×2 (08:19→21:01)
[2017-11-19] MEDS: VALPROIC ACID 250 MG/5 ML UDC PO SCH ×2 (08:19→16:50)
[2017-11-19] MEDS: ASPIRIN 81 MG TAB.CHEW PO SCH (08:19)
[2017-11-19] MEDS: METRONIDAZOLE 500 MG TABLET PO SCH ×2 (08:19→16:50)
[2017-11-19] MEDS: MEMANTINE HCL 5 MG TABLET PO SCH ×2 (08:20→16:51)
[2017-11-19] MEDS: AMLODIPINE BESYLATE 10 MG TABLET PO SCH (08:26)
[2017-11-19 16:00] VITALS: BP 127/68
[2017-11-19 16:46] VITALS: BP 123/64
[2017-11-19 20:34] VITALS: BP 125/60
[2017-11-19] MEDS: DONEPEZIL 5 MG TABLET PO SCH (21:01)
[2017-11-19] MEDS: ATORVASTATIN 10 MG TABLET PO SCH (21:01)
[2017-11-19] MEDS: ZOLPIDEM TARTRATE 5 MG TABLET PO PRN (21:01)
[2017-11-20] MEDS: HYDROCORTISONE ACETATE 25 MG/SUPP.RECT SUPP.RECT RC SCH ×2 (03:12→15:02)
[2017-11-20 08:00] VITALS: BP 127/54
[2017-11-20] MEDS: BENZTROPINE MESYLATE (1 MG) 1 MG TABLET PO SCH ×2 (09:17→16:40)
[2017-11-20] MEDS: AMLODIPINE BESYLATE 10 MG TABLET PO SCH (09:17)
[2017-11-20] MEDS: OXYBUTYNIN CHLORIDE 5 MG TABLET PO SCH ×2 (09:17→16:40)
[2017-11-20] MEDS: DOCUSATE SODIUM LIQ 100 MG/10 ML UDC PO SCH ×2 (09:18→16:40)
[2017-11-20] MEDS: risperiDONE 0.25 MG TABLET PO SCH ×3 (09:18→16:40)
[2017-11-20] MEDS: ENSURE ENLIVE CHOC 237 ML CAN PO SCH ×2 (09:18→16:40)
[2017-11-20] MEDS: CLARITHROMYCIN 500 MG TABLET PO SCH ×2 (09:18→21:23)
[2017-11-20] MEDS: VALPROIC ACID 250 MG/5 ML UDC PO SCH ×2 (09:18→16:39)
[2017-11-20] MEDS: METRONIDAZOLE 500 MG TABLET PO SCH ×2 (09:18→16:40)
[2017-11-20] MEDS: MEMANTINE HCL 5 MG TABLET PO SCH ×2 (09:18→16:40)
[2017-11-20] MEDS: PANTOPRAZOLE 40 MG/PACK PACK PO SCH ×2 (09:18→16:40)
[2017-11-20] MEDS: ASPIRIN 81 MG TAB.CHEW PO SCH (09:18)
[2017-11-20 20:00] VITALS: BP 99/55
[2017-11-20] MEDS: DONEPEZIL 5 MG TABLET PO SCH (21:24)
[2017-11-20] MEDS: ATORVASTATIN 10 MG TABLET PO SCH (21:25)
[2017-11-21] MEDS: HYDROCORTISONE ACETATE 25 MG/SUPP.RECT SUPP.RECT RC SCH (03:03)
[2017-11-21] MEDS: ENSURE ENLIVE CHOC 237 ML CAN PO SCH (08:09)
[2017-11-21] MEDS: VALPROIC ACID 250 MG/5 ML UDC PO SCH (08:28)
[2017-11-21] MEDS: DOCUSATE SODIUM LIQ 100 MG/10 ML UDC PO SCH (08:28)
[2017-11-21 08:29] VITALS: BP 141/79
[2017-11-21] MEDS: AMLODIPINE BESYLATE 10 MG TABLET PO SCH (08:29)
[2017-11-21] MEDS: OXYBUTYNIN CHLORIDE 5 MG TABLET PO SCH (08:30)
[2017-11-21] MEDS: BENZTROPINE MESYLATE (1 MG) 1 MG TABLET PO SCH (08:30)
[2017-11-21] MEDS: METRONIDAZOLE 500 MG TABLET PO SCH (08:30)
[2017-11-21] MEDS: PANTOPRAZOLE 40 MG/PACK PACK PO SCH (08:30)
[2017-11-21] MEDS: ASPIRIN 81 MG TAB.CHEW PO SCH (08:30)
[2017-11-21] MEDS: CLARITHROMYCIN 500 MG TABLET PO SCH (08:35)
[2017-11-21] MEDS: risperiDONE 0.25 MG TABLET PO SCH ×2 (08:35→13:09)
[2017-11-21] MEDS: MEMANTINE HCL 5 MG TABLET PO SCH (08:35)
== END 2017-11-21 13:20 | disposition home health service (06) | DRG 377 ==
LOC: ER 14:39 → MED 20:18
PROVIDERS: ADMIT Internal Medicine; ATTEND Internal Medicine
PROC: 0DBK8ZZ Excision of Ascending Colon, Via Natural or Artificial Opening Endoscopic (ICD-10-PCS; 2017-11-10)
PROC: 0DB58ZX Excision of Esophagus, Via Natural or Artificial Opening Endoscopic, Diagnostic (ICD-10-PCS; principal; 2017-11-10 07:15)
PROC: 0DB68ZX Excision of Stomach, Via Natural or Artificial Opening Endoscopic, Diagnostic (ICD-10-PCS; 2017-11-10 07:15)
DX: K29.51 Unspecified chronic gastritis with bleeding (principal); G93.40 Encephalopathy, unspecified; N39.0 Urinary tract infection, site not specified; E44.1 Mild protein-calorie malnutrition; E86.0 Dehydration; E78.5 Hyperlipidemia, unspecified; I10 Essential (primary) hypertension; D32.9 Benign neoplasm of meninges, unspecified; K64.8 Other hemorrhoids; B96.81 Helicobacter pylori [H. pylori] as the cause of diseases classified elsewhere; B86 Scabies; K21.0 Gastro-esophageal reflux disease with esophagitis; D12.2 Benign neoplasm of ascending colon; R53.1 Weakness; B96.20 Unspecified Escherichia coli [E. coli] as the cause of diseases classified elsewhere; F03.90 Unspecified dementia, unspecified severity, without behavioral disturbance, psychotic disturbance, mood disturbance, and anxiety; R33.9 Retention of urine, unspecified; F29 Unspecified psychosis not due to a substance or known physiological condition; Z68.21 Body mass index [BMI] 21.0-21.9, adult; N32.81 Overactive bladder; F20.9 Schizophrenia, unspecified; E87.6 Hypokalemia; K59.00 Constipation, unspecified
CPT/HCPCS: 36415; 71045-TC; 80048-TC; 80053-TC; 80076-TC; 81000-TC; 82272-TC; 82378; 82962-TC; 83735-TC; 84100-TC; 84484-TC; 85025-TC; 85610-TC; 85730-TC; 86850-TC; 86880-TC; 87081-TC; 87086-TC; 87186-TC; 88305-TC; 88313-TC; 88342; A4216; A4606; J0330; J0696; J2185; J3475; J3490; J7030; J7040; J7050; Z7610

== ENCOUNTER 2018-08-16 09:25 | Emergency (ER) | payer MEDICARE, OTHER ==
[~2018-08-16] VITALS: Ht 152.4 cm; Wt 63.5 kg
[~2018-08-16 09:25] MED LIST changes: -AMLO10TA2 PO; +AMLO10TA7 PO; +BENZ0.5T43 PO; -CEFA1VIA19 IV; +DIVA-76 PO; -DOCU100C36 PO; -DONE10TA44 PO; +RISP0.253 PO
--- NOTE | 2018-08-16 09:30 | NUR ---
bib family c/o nosebleed. rr is even and unlabored with nad noted. Skin is warm and dry. Dr Murphy at [facility] for eval.
[2018-08-16 10:00] LABS: BASOPHILS # (AUTO) 0.1 /CMM (0.0-0.2); BASOPHILS % (AUTO) 1.2 % (0.0-2.0); EOSINOPHILS % (AUTO) 2.4 % (0.0-6.0); HEMATOCRIT 39 % (33-45); LYMPHOCYTES # (AUTO) 0.9 /CMM (0.8-4.8); LYMPHOCYTES % (AUTO) 17.5 % (20.0-44.0); MEAN CORPUSCULAR HGB CONC 33 g/dl (31.0-36.0); MEAN CORPUSCULAR VOLUME 94 fL (82-100); MONOCYTES # (AUTO) 0.4 /CMM (0.1-1.30); MONOCYTES % (AUTO) 7.7 % (2.0-12.0); NEUTROPHILS # (AUTO) 3.5 /CMM (1.8-8.9); NEUTROPHILS % (AUTO) 71.2 % (43.0-81.0); PLATELET COUNT (AUTO) 204 /CMM (150-450); RED BLOOD CELL COUNT(AUTO) 4.16 MIL/uL (4.0-5.2); WHITE BLOOD COUNT (AUTO) 4.9 K/uL (4.3-11.0)
[2018-08-16 10:07] LABS: CALCIUM, SERUM 9.3 mg/dL (8.5-10.1); CREATININE 0.9 mg/dL (0.6-1.3); POTASSIUM 3.4 mmol/L (3.5-5.1)
--- NOTE | 2018-08-16 10:34 | NUR ---
Patient discharged to home in stable condition. Written and verbal after care instructions given. Patient verbalizes understanding of instruction.
[2018-08-16 10:37] VITALS: BP 140/92
== END 2018-08-16 10:38 | disposition home or self-care (01) ==
LOC: ER 09:30
DX: R04.0 Epistaxis (principal); B86 Scabies; F03.90 Unspecified dementia, unspecified severity, without behavioral disturbance, psychotic disturbance, mood disturbance, and anxiety; I10 Essential (primary) hypertension; F29 Unspecified psychosis not due to a substance or known physiological condition; D72.829 Elevated white blood cell count, unspecified; E78.5 Hyperlipidemia, unspecified; E87.6 Hypokalemia; Z90.710 Acquired absence of both cervix and uterus; Z98.890 Other specified postprocedural states; Z88.8 Allergy status to other drugs, medicaments and biological substances; Z79.82 Long term (current) use of aspirin
CPT/HCPCS: 36415; 80048; 85025; 85730; 99283; A4606